=== PATIENT | male | born 1970 | race African-American/Black ===

== ENCOUNTER 2017-08-13 09:15 | Inpatient (IN) | payer OTHER ==
[2017-08-13] MEDS ORDERED: Furosemide 40 MG/4 ML VIAL ONE (09:51)
[2017-08-13] MEDS ORDERED: Nitroglycerin 2% Ointment 1 INCH/1 GM Packet ONE (09:51)
[2017-08-13 10:07] LABS: #Basophils 0.1 thou/uL (0.0-0.2); #Eosinphils 0.2 thou/uL (0.0-0.7); #Lymphocytes 1.8 thou/uL (1.20-3.40); #Monocytes 0.6 thou/uL (0.11-0.59); #Neutrophils 3.7 thou/uL (1.40-6.50); %Basophils 1.6 % (0.0-1.0); %Lymphocytes 28.6 % (21.0-51.0); %Monocytes 8.9 % (0.0-10.0); %Neutrophils 57.8 % (42.0-75.0); Hemoglobin 9.1 g/dL (14.0-18.0); Mean Corpuscular HGB CONC 32.7 g/dL (32.0-36.0); Mean Corpuscular Hemoglobin 30.9 pg (27.0-31.0); Mean Corpuscular Volume 94.5 fl (80.0-94.0); Mean Platelet Volume 9.5 fL (7.4-10.4); Platelet Count 193 thou/uL (130-400); RBC Distribution Width 14.5 % (11.5-14.5); Red Blood Cell (RBC) Count 2.94 mill/uL (4.70-6.10); White Blood Cell (WBC) Count 6.4 thou/uL (4.8-10.8)
[2017-08-13 10:08] LABS: INR-International Normal Ratio 1.4; PTT 28.9 SEC (22.9-36.1); Prothrombin Time 17.2 SEC (12.0-14.7)
[2017-08-13 10:24] LABS: ALT (SGPT) 38 U/L (8-55); AST (SGOT) 83 U/L (5-34); Albumin 1.6 g/dL (3.5-5.0); Alkaline Phosphatase 340 U/L (40-150); Anion Gap 11 mmol/L (10-20); BUN (Urea Nitrogen) 22 mg/dL (8.9-20.6); Bilirubin, Total 0.6 mg/dL (0.2-1.2); CK (CPK) 208 U/L (30-200); Calc. Creatinine Clearance 0 mL/min (70-130); Calcium 8.2 mg/dL (7.8-10.44); Carbon Dioxide 24 mmol/L (22-29); Chloride 105 mmol/L (98-107); Estimated GFR-MDRD 64; Globulin 4.8 g/dL (2.4-3.5); Glucose 156 mg/dL (70-105); Lipase 91 U/L (8-78); Potassium 4.3 mmol/L (3.5-5.1); Protein, Total 6.4 g/dL (6.0-8.3); Sodium 136 mmol/L (136-145)
--- NOTE | 2017-08-13 10:31 | RAD ---
PORTABLE CHEST ONE VIEW: 08/13/2017 9:52 a.m. HISTORY: Dyspnea. COMPARISON: 03/30/2017 FINDINGS: The heart size is borderline. New patchy infiltrates in the right lung. No pneumothoraces or large effusions are seen. POS: [facility]
[2017-08-13 10:35] LABS: CKMB 3.2 ng/mL (0-6.6); Troponin I 0.066 ng/mL (< 0.028)
[2017-08-13] MEDS ORDERED: HYDROcodone/Acetaminophen 5/325 mg Tablet ONE (11:04)
[2017-08-13] MEDS ORDERED: Piperacillin/Tazobactam 4.5 GM in Sodium Chloride 0.9% 100 ML IVPB ONE (11:30)
[2017-08-13] MEDS ORDERED: diphenhydrAMINE 25 MG CAP ONE (11:35)
--- NOTE | 2017-08-13 13:23 | HP ---
PRIMARY CARE PHYSICIAN: [facility] call admission. REASON FOR ADMISSION: Healthcare-associated pneumonia, acute on chronic systolic and diastolic conge stive heart failure exacerbation. HISTORY OF PRESENT ILLNESS: A 46-year-old -[place] male who has nonischemic cardiomyopathy w ith EF 20%-25%, who came to emergency room for evaluation of increasing shortness of breath as well a s lower extremity edema. The patient reports that earlier this week, he was admitted at [facility] in [place]. He was int ubated and stayed in hospital for 4 days where he was treated for congestive heart failure exacerbati on. He was just released from hospital yesterday. He reports that when he was released, at that ej e he was still feeling shortness of breath. He had still bilateral lower extremity pitting edema. H e was not feeling up to his baseline. Last night, his condition got more worse. He was having acute onset of shortness of breath. He woke up from sleep and at that time he was having difficulty breat xavi. He started having cough, productive of sputum with tinged amount of blood. He was not able to lie down flat, he was diaphoretic and that is why this morning he came to the emergency room for gopi luation. In the emergency room, he was hypertensive. He was saturating in 90s with oxygen. His routine blood test was unremarkable other than elevated troponin and elevated BNP. His chest x-ray also showed ri ght middle lobe infiltration. This patient has dry cough. He denies any pleuritic chest pain. He d enies any palpitation, dizziness or syncope. He denies any urinary tract infection symptoms. He den ies any recent upper respiratory infection. In the emergency room, influenza screen was negative. In the emergency room, patient has received vancomycin, Zosyn. As he was hypertensive, nitropatch wa s applied and he was given Lasix 80 mg IV push. He does have chronic pain and he is taking Ulman and that is why Ulman was also prescribed in the emergency room. We are admitting this patient for healthcare associated pneumonia and congestive heart failure exacer bation. REVIEW OF SYSTEMS: The following complete review of systems was negative, unless otherwise mentioned in the HPI or below: Constitutional: Weight loss or gain, ability to conduct usual activities. Skin: Rash, itching. Eyes: Double vision, pain. ENT/Mouth: Nose bleeding, neck stiffness, pain, tenderness. Cardiovascular: Palpitations, dyspnea on exertion, orthopnea. Respiratory: Shortness of breath, wheezing, cough, hemoptysis, fever or night sweats. Gastrointestinal: Poor appetite, abdominal pain, heartburn, nausea, vomiting, constipation, or diarr hea. Genitourinary: Urgency, frequency, dysuria, nocturia. Musculoskeletal: Pain, swelling. Neurologic/Psychiatric: Anxiety, depression. Allergy/Immunologic: Skin rash, bleeding tendency. Please see my HPI for pertinent positives and negatives. All other review of system reviewed and neg ative except as mentioned in the HPI. PAST MEDICAL HISTORY: Nonischemic cardiomyopathy with EF 20%-25%, noncompliance with medication, his tory of mesenteric ischemia, history of portal vein thrombosis, ascites, portal hypertension, chronic hepatitis C, end-stage liver disease with cirrhosis of liver, history of esophageal varices, diabete s type 2, polysubstance abuse, protein calorie malnutrition, hypertension. PAST PSYCHIATRIC HISTORY: Anxiety, depression, and bipolar disorder. PAST SURGICAL HISTORY: Left inguinal hernia repair, cholecystectomy. I&D were performed for perirec real abscess, left arm abscess, abdominal paracentesis. ALLERGIES: NSAID, TORADOL, and FENTANYL. SOCIAL HISTORY: Patient lives at home. He has history of polysubstance abuse including marijuana, c ocaine as well as he also has a history of alcohol and smoking. FAMILY HISTORY: No strong family history of coronary artery disease, stroke or cancer. EMERGENCY ROOM COURSE: So far, patient has received vancomycin, Zosyn, Levaquin, Ulman, Lasix 80 mg, and nitropatch. CURRENT HOME MEDICATIONS: Lasix 80 mg p.o. b.i.d., Aldactone 50 mg p.o. daily, lactulose 15 mL p.o. b.i.d., risperidone 0.2 mg p.o. daily, clonidine 0.2 mg twice daily, aspirin 325 mg p.o. daily, folic acid 1 mg p.o. daily, Corgard 40 mg p.o. daily, hydralazine 50 mg p.o. b.i.d., Lantus insulin 40 uni ts subcu at bedtime, multivitamin 1 tablet p.o. daily, Ulman 10 one tablet q.6 hourly p.r.n., Xanax 2 mg p.o. b.i.d. p.r.n., Klonopin 2 mg p.o. b.i.d. p.r.n., potassium chloride 20 mEq p.o. daily, amlod ipine 5 mg p.o. daily, vitamin B12 1000 mcg p.o. daily, omeprazole 20 mg p.o. daily. Of note, above- mentioned medication is not able to verify because patient did not have any medication with him. PHYSICAL EXAMINATION: VITAL SIGNS: On arrival, blood pressure 157/100, pulse 91, respiratory rate 19, temperature 97.8, sa turation 93% on room air, weight 83.9 kilograms. GENERAL: Patient is currently alert, awake, chronically ill, no obvious acute distress. HEAD: Normocephalic, atraumatic. EYES: Pupils round, reactive to light. Extraocular muscle intact. No icterus. No nystagmus. ENT: Oropharynx within normal limits. Moist mucous membranes. No oral lesions. No pharyngeal eryt imani, no exudate. NECK: Elevated JVD, no thyromegaly, no carotid bruit, no lymph nodes, no meningeal signs of irritati on. LUNGS: Bilateral rhonchi and wheezing heard. Rales present at bases, more on the right side. CARDIAC: S1 and S2 regular. No murmur, no gallop, no rub. ABDOMEN: Ascites present. Diffuse soreness noted, but no peritoneal sign, no guarding, no rigidity, no rebound, no organomegaly, no mass, no suprapubic tenderness. GENITALIA: Scrotal wall edema noted. BACK: Examination, no CVA tenderness. EXTREMITIES: Upper extremity passive movements of all joints are normal. Lower extremities: Bilate ral +2 pitting edema noted up to thigh level. NEUROLOGIC: Nonfocal examination. No asterixis. He moves all 4 limbs. Motor and sensation within normal limits. No focal neurological deficit noted. SKIN: No skin rash. HEMATOLOGICAL SYSTEM: No lymphadenopathy. PSYCHIATRIC: Normal affect. IMAGING DATA AND SIGNIFICANT LABORATORY DATA: 1. EKG showing normal sinus rhythm, ST-T changes in lateral leads. 2. Chest x-ray based on my review, patchy infiltration in right middle lobe, cardiomegaly, congestio n. 3. CBC: WBC 6.4, hemoglobin 9.1, platelets 193. INR 1.4. 4. BMP: Sodium 136, potassium 4.3, chloride 105, carbon dioxide 24, anion gap 11, BUN 22, creatinin e 1.42, glucose 156, calcium 8.2, lactic acid 1.5. 5. LFT: AST 83, ALT 38, alkaline phosphatase 340, albumin 1.6, lipase 91. CK 208, CK-MB 3.2, tropo nguyen I 0.066. BNP 3576. ASSESSMENT AND PLAN/IMPRESSION: 1. Acute on chronic systolic congestive heart failure exacerbation with ejection fraction 20%-25%. This patient has elevated BNP. He has bilateral lower extremity pitting edema, elevated JVD, dyspnea , all consistent with congestive heart failure exacerbation. This patient will require fluid restric tion 1200 mL per day. We will continue with Lasix 40 mg IV b.i.d. We will also continue with Zaroxo faith 5 mg p.o. daily. We will monitor daily weight, input and output chart. We will replace electrol ytes as needed basis. We will monitor renal function and electrolytes while in hospital. We will al so continue Coreg 12.5 mg p.o. twice daily and lisinopril 5 mg p.o. daily. We will also add Aldacton e 25 mg p.o. daily. 2. Healthcare-associated pneumonia. Patient was recently hospitalized at [facility] in [place]. He has right middle lobe infiltration though he does not have any fever, but the patient will be tr eated with clinically for pneumonia. We will continue with vancomycin and Levaquin while in hospital . We will provide Mucinex 600 mg twice daily and DuoNeb q.6 hourly and as needed basis. 3. Chronic kidney disease stage 2. We will monitor renal function and avoid nephrotoxic agent. 4. Anemia, normocytic, normochromic. We will continue folic acid, vitamin B12, and ferrous sulfate and Theragran therapy while in hospital. 5. Abnormal liver function tests, related with his chronic hepatitis C and end-stage liver disease. 6. Ascites likely related with cardiac cirrhosis as well as hepatitis C related cirrhosis and portal vein thrombosis and his history of portal hypertension. We will monitor his abdominal girth and we will try to reduce abdominal distention with diuretic therapy. 7. Elevated troponin. We will do serial cardiac enzymes to rule out acute coronary syndrome. 8. Hypertension. We will continue Coreg, lisinopril, Aldactone and Lasix as above and we will monit or vitals and change medication as needed basis. 9. History of end-stage liver disease. We will continue lactulose 15 grams p.o. b.i.d. while in [facility] 10. Diabetes type 2. We will continue insulin as per sliding scale protocol. Diabetic diet will be given. 11. Gastroesophageal reflux disease. We will continue Protonix 40 mg p.o. daily. 12. Hypoalbuminemia, likely due to underlying end-stage liver disease and that is also contributing to his edema in lower extremity. 13. Polysubstance abuse. We will check urine drug screen to rule out any ongoing drug abuse. 14. Deep venous thrombosis prophylaxis, Lovenox 40 mg subcutaneously daily. 15. Gastrointestinal prophylaxis, Protonix 40 mg p.o. daily. CODE STATUS: The patient is FULL CODE. Patient does not have any surrogate decision maker. Disposition and plan based on clinical course. We are expecting patient's stay in the hospital more than 2 midnights. Plan of care discussed with the patient in detail.
[2017-08-13 13:32] LABS: Troponin I 0.077 ng/mL (< 0.028)
[2017-08-13] MEDS ORDERED: Ondansetron ODT 4 MG TAB SL PRN (14:24)
[2017-08-13] MEDS ORDERED: Ondansetron HCl/PF 4 MG/2 ML Vial IVP PRN ×2 (14:24→14:32)
[2017-08-13] MEDS ORDERED: Dextrose 5% in Water 1,000 ML IV PRN (14:32)
[2017-08-13] MEDS ORDERED: Milk Of Magnesia 30 ML UDCUP PO PRN (14:32)
[2017-08-13] MEDS ORDERED: Chloraseptic Spray 180 ml Bottle PO PRN (14:32)
[2017-08-13] MEDS ORDERED: Mag-Al 1200 mg/1200 mg/30 ML UDCUP PO PRN (14:32)
[2017-08-13] MEDS ORDERED: Sodium Chloride 0.65% Nasal 44 ML BOT EA NARE PRN (14:32)
[2017-08-13] MEDS ORDERED: Loratadine 10 MG TAB PO PRN (14:32)
[2017-08-13] MEDS ORDERED: Eucerin (Mineral Oil/Petrolatum,White) 30 gm Jar TOP PRN (14:32)
[2017-08-13] MEDS ORDERED: Dextrose 50% Abboject 50 ML SYRINGE SLOW IVP PRN (14:32)
[2017-08-13] MEDS ORDERED: Benzonatate 100 MG CAP PO PRN (14:32)
[2017-08-13] MEDS ORDERED: Diabetic Tussin 200 MG/10 ML UDCUP PO PRN (14:32)
[2017-08-13] MEDS ORDERED: Loperamide HCl 2 MG CAP PO PRN (14:32)
[2017-08-13] MEDS ORDERED: Artificial Tears 18 DROP/0.9 ML EA EYE PRN (14:32)
[2017-08-13] MEDS ORDERED: Ondansetron ODT 4 MG TAB PO PRN (14:32)
[2017-08-13] MEDS ORDERED: Nitroglycerin 0.4 MG TAB (25 Tab Bottle) SL PRN (14:32)
[2017-08-13] MEDS ORDERED: Acetaminophen 325 MG TAB PO PRN (14:32)
[2017-08-13] MEDS ORDERED: VANCOMYCIN IVPB PRN (14:32)
[2017-08-13] MEDS ORDERED: Senokot 8.6 MG TAB PO PRN (14:32)
[2017-08-13] MEDS ORDERED: hydrALAZINE 20 MG/ML VIAL SLOW IVP PRN (14:32)
[2017-08-13] MEDS ORDERED: Furosemide 40 MG/4 ML VIAL SLOW IVP SCH (15:30)
[2017-08-13] MEDS: HYDROcodone/Acetaminophen 10/325 mg Tablet PO PRN ×2 (15:30→19:26)
[2017-08-13 15:31] LABS: Bilirubin Negative (Negative); Blood, Urine Small (Negative); Clarity CLEAR (Clear); Glucose, Urine (Dipstick) Negative (Negative); Leukocyte Negative (Negative); Nitrite Negative (Negative); Protein, Urine (Dipstick) 30 mg/dL (Neg-Trace); Specific Gravity, Urine 1.012 (1.002-1.036); Urobilinogen 0.2 mg/dL (0.2-1.0)
[2017-08-13 15:35] LABS: Bacteria/HPF None Seen HPF (None Seen); Hyaline Casts/LPF 0-3 HYALINE CAST LPF (0-3 Hyaline); Squamous Epithelial None Seen HPF (0-3); WBC/HPF 0-3 HPF (0-3)
[2017-08-13 16:26] LABS: Troponin I 0.066 ng/mL (< 0.028)
[2017-08-13] MEDS: HumaLOG 300 UNITS/3 ML VIAL SC PRN (17:30)
[2017-08-13 20:51] LABS: Amphetamine Not Detected (NotDetected); Barbiturates Screen Not Detected (NotDetected); Benzodiazepine Screen Not Detected (NotDetected); Cocaine Metabolite Screen Detected (NotDetected); Medtox Control Line Valid? VALID (VALID); Medtox Reader # READER 4; Methadone Not Detected (NotDetected); Methamphetamine Not Detected (NotDetected); Opiate Screen Not Detected (NotDetected); Oxycodone Screen Not Detected (NotDetected); Phencyclidine (PCP) Not Detected (NotDetected); THC/Cannabinoid Screen Not Detected (NotDetected); Tricyclic Screen Not Detected (NotDetected)
[2017-08-13] MEDS: Carvedilol 6.25 MG TAB PO SCH (22:06)
[2017-08-14] MEDS: Zolpidem Tartrate 5 MG TAB PO PRN (01:45)
[2017-08-14] MEDS: HYDROcodone/Acetaminophen 10/325 mg Tablet PO PRN ×5 (04:36→20:43)
[2017-08-14 05:20] VITALS: BMI 30.7
[2017-08-14 05:27] LABS: #Basophils 0.1 thou/uL (0.0-0.2); #Eosinphils 0.2 thou/uL (0.0-0.7); #Lymphocytes 1.8 thou/uL (1.20-3.40); #Monocytes 0.6 thou/uL (0.11-0.59); #Neutrophils 3.1 thou/uL (1.40-6.50); %Basophils 1.8 % (0.0-1.0); %Eosinophils 2.7 % (0.0-10.0); %Lymphocytes 31.5 % (21.0-51.0); %Monocytes 11.1 % (0.0-10.0); %Neutrophils 52.9 % (42.0-75.0); Hemoglobin 8.7 g/dL (14.0-18.0); Mean Corpuscular HGB CONC 33.3 g/dL (32.0-36.0); Mean Corpuscular Hemoglobin 31.7 pg (27.0-31.0); Mean Corpuscular Volume 95.4 fl (80.0-94.0); Mean Platelet Volume 8.9 fL (7.4-10.4); Platelet Count 145 thou/uL (130-400); RBC Distribution Width 14.6 % (11.5-14.5); Red Blood Cell (RBC) Count 2.74 mill/uL (4.70-6.10); White Blood Cell (WBC) Count 5.8 thou/uL (4.8-10.8)
[2017-08-14 05:43] LABS: ALT (SGPT) 37 U/L (8-55); AST (SGOT) 77 U/L (5-34); Albumin 1.5 g/dL (3.5-5.0); Alkaline Phosphatase 338 U/L (40-150); Anion Gap 9 mmol/L (10-20); BUN (Urea Nitrogen) 25 mg/dL (8.9-20.6); Bilirubin, Total 0.5 mg/dL (0.2-1.2); Calc. Creatinine Clearance 64 mL/min (70-130); Carbon Dioxide 28 mmol/L (22-29); Chloride 103 mmol/L (98-107); Estimated GFR-MDRD 51; Globulin 4.5 g/dL (2.4-3.5); Glucose 217 mg/dL (70-105); Sodium 136 mmol/L (136-145); Uric Acid 9.2 mg/dL (3.5-7.2)
[2017-08-14] MEDS: Furosemide 40 MG/4 ML VIAL SLOW IVP SCH ×2 (06:29→16:33)
[2017-08-14] MEDS ORDERED: Albumin 25% 25 GM/100 ML BOT IVPB SCH (07:00)
[2017-08-14] MEDS: Potassium Chloride 20 MEQ TAB PO SCH (08:33)
[2017-08-14] MEDS: Saccharomyces boulardii 250 MG CAP PO SCH (08:33)
[2017-08-14] MEDS: Magnesium Oxide 400 MG TAB PO SCH (08:33)
[2017-08-14] MEDS: Cyanocobalamin (Vitamin B-12) 1,000 MCG TAB PO SCH (08:34)
[2017-08-14] MEDS: Multivitamin W/ Minerals 1 TAB PO SCH (08:34)
[2017-08-14] MEDS: Enoxaparin Sodium 40 MG/0.4 ML SYRINGE SC SCH (08:34)
[2017-08-14] MEDS: Metolazone 5 MG TAB PO SCH (08:34)
[2017-08-14] MEDS: Ferrous Sulfate 325 MG TAB PO SCH (08:34)
[2017-08-14] MEDS: Lisinopril 5 MG TAB PO SCH (08:34)
[2017-08-14] MEDS: Folic Acid 1 MG TAB PO SCH (08:34)
[2017-08-14] MEDS: Spironolactone 25 MG TAB PO SCH (08:34)
[2017-08-14] MEDS: HumaLOG 300 UNITS/3 ML VIAL SC PRN ×3 (08:35→18:09)
[2017-08-14] MEDS: Carvedilol 6.25 MG TAB PO SCH ×2 (08:35→20:43)
--- NOTE | 2017-08-14 09:57 | PDOC.PN ---
- Subjective Encounter Start Date: 08/14/17 Encounter Start Time: 07:30 -: old records requested/rev Patient seen and examined. No new complaints. No overnight events has cough, edema is improving, no fever - Objective Resuscitation Status: Resuscitation Status FULL:Full Resuscitation MAR Reviewed: Yes Vital Signs & Weight: Vital Signs (12 hours) Temp Pulse Resp BP BP Pulse Ox 08/14/17 08:35 138/56 L 08/14/17 08:34 89 138/56 L 08/14/17 07:28 89 15 95 08/14/17 07:26 97.2 F L 89 15 138/56 L 95 08/14/17 04:00 98.3 F 88 18 159/96 H 92 L 08/13/17 23:58 93 L 08/13/17 22:06 134/83 Weight Weight 190 lb 8 oz I&O: 08/13/17 08/14/17 08/15/17 06:59 06:59 06:59 Intake Total 1074 Output Total 980 Balance 94 Result Diagrams: 08/14/17 04:30 08/14/17 04:30 Additional Labs: Accuchecks 08/14/17 08/13/17 08/13/17 06:16 20:34 17:11 POC Glucose 230 H 168 H 327 H EKG Reviewed by me: Yes (nsr) Phys Exam - Physical Examination Constitutional: NAD HEENT: PERRLA, moist MMs, sclera anicteric Neck: supple, full ROM high jvd Respiratory: no wheezing, no rhonchi basal rales Cardiovascular: RRR, no rub SM+ Gastrointestinal: soft, positive bowel sounds ascites+ Musculoskeletal: pulses present, edema present Neurological: non-focal, normal sensation, moves all 4 limbs Psychiatric: normal affect, A&O x 3 Skin: no rash, normal turgor Dx/Plan (1) Acute on chronic systolic heart failure Code(s): I50.23 - ACUTE ON CHRONIC SYSTOLIC (CONGESTIVE) HEART FAILURE Status : Acute (2) Healthcare associated bacterial pneumonia Code(s): J15.9 - UNSPECIFIED BACTERIAL PNEUMONIA Status: Acute (3) Hypoalbuminemia Code(s): E88.09 - OTH DISORDERS OF PLASMA-PROTEIN METABOLISM, NEC Status: Acute (4) Abdominal pain Code(s): R10.9 - UNSPECIFIED ABDOMINAL PAIN Status: Chronic Qualifiers: Abdominal location: generalized Qualified Code(s): R10.84 - Generalized abdominal pain (5) Anxiety and depression Code(s): F41.9 - ANXIETY DISORDER, UNSPECIFIED; F32.9 - MAJOR DEPRESSIVE DISORDER, SINGLE EPISODE, UNSPECIFIED Status: Chronic (6) Bipolar 1 disorder Code(s): F31.9 - BIPOLAR DISORDER, UNSPECIFIED Status: Chronic (7) Cirrhosis of liver with ascites Code(s): K74.60 - UNSPECIFIED CIRRHOSIS OF LIVER Status: Chronic (8) Cocaine abuse Code(s): F14.10 - COCAINE ABUSE, UNCOMPLICATED Status: Chronic (9) DM type 2 (diabetes mellitus, type 2) Status: Chronic (10) HTN (hypertension) Code(s): I10 - ESSENTIAL (PRIMARY) HYPERTENSION Status: Chronic (11) Hepatitis C Code(s): B19.20 - UNSPECIFIED VIRAL HEPATITIS C WITHOUT HEPATIC COMA Status: Chronic Qualifiers: (12) Moderate protein-calorie malnutrition Code(s): E44.0 - MODERATE PROTEIN-CALORIE MALNUTRITION Status: Chronic (13) Non-ischemic cardiomyopathy Code(s): I42.8 - OTHER CARDIOMYOPATHIES Status: Chronic (14) Noncompliance Code(s): Z91.19 - PATIENT'S NONCOMPLIANCE W OTH MEDICAL TREATMENT AND REGIMEN Status: Chronic (15) Normocytic anemia Code(s): D64.9 - ANEMIA, UNSPECIFIED Status: Chronic (16) Portal vein thrombosis Code(s): I81 - PORTAL VEIN THROMBOSIS Status: Chronic Comment: ESLD (17) Transaminitis Code(s): R74.0 - NONSPEC ELEV OF LEVELS OF TRANSAMNS & LACTIC ACID DEHYDRGNSE Status: Chronic Comment: ESLD (18) Varices, esophageal Code(s): I85.00 - ESOPHAGEAL VARICES WITHOUT BLEEDING Status: Chronic Comment: ESLD - Plan cont current plan of care, plan discussed w/ family, respiratory therapy * continue vancomycin, levaquin * give albumin * continue lasix and zaroxolyn * monitor renal function and electrolytes * add nutritional supplement * medication reviewed as below * symptomatic treatment * counselled to avoid posysubstance abuse. Review of Systems - Review of Systems Constitutional: negative: fever, chills, sweats, weakness, malaise, other ENT: negative: Ear Pain, Ear Discharge, Nose Pain, Nose Discharge, Nose Congestion, Mouth Pain, Mouth Swelling, Throat Pain, Throat Swelling, Other Respiratory: Cough, Shortness of Breath, SOB with Excertion Cardiovascular: orthopnea, edema. negative: chest pain, palpitations, paroxysmal nocturnal dyspnea, light headedness, other Gastrointestinal: negative: Nausea, Vomiting, Abdominal Pain, Diarrhea, Constipation, Melena, Hematochezia, Other Genitourinary: negative: Dysuria, Frequency, Incontinence, Hematuria, Retention , Other Musculoskeletal: negative: Neck Pain, Shoulder Pain, Arm Pain, Back Pain, Hand Pain, Leg Pain, Foot Pain, Other Skin: negative: Rash, Lesions, Chad, Bruising, Other Neurological: negative: Weakness, Numbness, Incoordination, Change in Speech, Confusion, Seizures, Other - Medications/Allergies Allergies/Adverse Reactions: Allergies Allergy/AdvReac Type Severity Reaction Status Date / Time ibuprofen [From Motrin] Allergy Intermediate Short of Verified 11/27/15 17:55 Breath fentanyl Allergy Verified 11/27/15 17:55 ketorolac tromethamine Allergy Short of Verified 11/27/15 17:55 [From Toradol] Breath NSAIDS (Non-Steroidal Allergy Short of Verified 11/27/15 17:55 Anti-Inflamma Breath tramadol HCl [From Ultram] Allergy Short of Verified 11/27/15 17:55 Breath Medications: Current Medications Acetaminophen (Tylenol) 650 mg PO Q4H PRN PRN Reason: Headache/Fever or Pain Hydrocodone Bitart/Acetaminophen (Avalon 10/325) 1 tab PO Q4H PRN PRN Reason: Moderate Pain (4-6) Last Admin: 08/14/17 08:32 Dose: 1 tab Al Hydroxide/Mg Hydroxide (Maalox) 30 ml PO Q6H PRN PRN Reason: Heartburn or Indigestion Albuterol/Ipratropium (Duoneb) 3 ml NEB [id number] [facility] Last Admin: 08/14/17 07:28 Dose: 3 ml Artificial Tears (Tears Naturale) 0 drop EA EYE PRN PRN PRN Reason: Dry Eyes Aspirin (Aspirin Chewable) 81 mg PO DAILY [facility] Last Admin: 08/14/17 08:33 Dose: 81 mg Benzonatate (Tessalon) 100 mg PO Q4H PRN PRN Reason: Cough Carvedilol (Coreg) 12.5 mg PO BID [facility] Last Admin: 12/31/17 08:35 Dose: Not Given Cyanocobalamin (Vitamin B-12) 1,000 mcg PO DAILY [facility] Last Admin: 08/14/17 08:34 Dose: 1,000 mcg Dextrose/Water (Dextrose 50%) 25 gm SLOW IVP PRN PRN PRN Reason: Hypoglycemia Enoxaparin Sodium (Lovenox) 40 mg SC 0900 [facility] Last Admin: 08/14/17 08:34 Dose: 40 mg Ferrous Sulfate (Feosol) 325 mg PO QAM[facility] Last Admin: 08/14/17 08:34 Dose: 325 mg Folic Acid (Folvite) 1 mg PO DAILY [facility] Last Admin: 08/14/17 08:34 Dose: 1 mg Furosemide (Lasix) 40 mg SLOW IVP 0600,1400 [facility] Last Admin: 08/14/17 06:29 Dose: 40 mg Glucagon (Glucagon) 1 mg IM PRN PRN PRN Reason: Hypoglycemia Guaifenesin (Robitussin Sf) 200 mg PO Q4H PRN PRN Reason: Cough Hydralazine HCl (Apresoline) 10 mg SLOW IVP Q4H PRN PRN Reason: Systolic BP > 180 Dextrose/Water (D5w) 1,000 mls @ 0 mls/hr IV .Q0M PRN; As Directed PRN Reason: Hypoglycemia Levofloxacin 500 mg/ Device 100 mls @ 100 mls/hr IVPB 1300 [facility] Vancomycin HCl 1.25 gm/ Sodium (Chloride) 250 mls @ 166.667 mls/hr IVPB 1100 [facility] Insulin Human Lispro (Humalog) 0 units SC .MODERATE SLIDING SC PRN PRN Reason: Moderate Correctional Scale Last Admin: 08/14/17 08:35 Dose: 4 unit Insulin Human Lispro (Humalog) 0 units SC .BEDTIME SLIDING SC PRN PRN Reason: Bedtime Correctional Scale Iron/Minerals/Multivitamins (Theragran M) 1 tab PO DAILY [facility] Last Admin: 08/14/17 08:34 Dose: 1 tab Lactulose (Lactulose) 20 gm PO DAILY [facility] Last Admin: 08/14/17 08:35 Dose: Not Given Lisinopril (Zestril) 5 mg PO DAILY [facility] Last Admin: 08/14/17 08:34 Dose: 5 mg Loperamide HCl (Imodium) 2 mg PO PRN PRN PRN Reason: Diarrhea/Loose Stools Loratadine (Claritin) 10 mg PO DAILYPRN PRN PRN Reason: Sinus Symptoms Magnesium Hydroxide (Milk Of Magnesium) 30 ml PO DAILYPRN PRN PRN Reason: Constipation Magnesium Oxide (Magnesium Oxide) 400 mg PO DAILY [facility] Last Admin: 08/14/17 08:33 Dose: 400 mg Metolazone (Zaroxolyn) 5 mg PO 0830 [facility] Last Admin: 08/14/17 08:34 Dose: 5 mg Mineral Oil/White Petrolatum (Eucerin Cream) 0 gm TOP BIDPRN PRN PRN Reason: Dry Skin Miscellaneous Medication (Pharmacy To Dose) 1 each IVPB PRN PRN PRN Reason: Pharmacy to dose Morphine Sulfate (Morphine) 2 mg SLOW IVP Q4H PRN PRN Reason: Severe Pain (7-10) Nitroglycerin (Nitrostat) 0.4 mg SL Q5MIN PRN PRN Reason: Chest Pain Ondansetron HCl (Zofran Odt) 4 mg PO Q6H PRN PRN Reason: Nausea/Vomiting Ondansetron HCl (Zofran) 4 mg IVP Q6H PRN PRN Reason: Nausea/Vomiting Pantoprazole Sodium (Protonix) 40 mg PO DAILY [facility] Last Admin: 08/14/17 08:33 Dose: 40 mg Phenol (Chloraseptic [place] 180 Ml Bot) 0 ml PO PRN PRN PRN Reason: Sore Throat Potassium Chloride (K-Dur) 20 meq PO QA-[facility] Last Admin: 08/14/17 08:33 Dose: 20 meq Saccharomyces Boulardii (Florastor) 250 mg PO DAILY [facility] Last Admin: 08/14/17 08:33 Dose: 250 mg Senna (Senokot) 2 tab PO HSPRN PRN PRN Reason: Constipation Sodium Chloride ([place] Nasal [place] 0.65%) 0 ml EA NARE QIDPRN PRN PRN Reason: Nasal Congestion Spironolactone (Aldactone) 25 mg PO DAILY [facility] Last Admin: 08/14/17 08:34 Dose: 25 mg Zolpidem Tartrate (Ambien) 5 mg PO HSPRN PRN PRN Reason: Insomnia Last Admin: 08/14/17 01:45 Dose: 5 mg
[2017-08-14] MEDS ORDERED: Vancomycin HCl 1.25 GM in Sodium Chloride 0.9% 250 ML 250 ML IVPB SCH (11:00)
[2017-08-15] MEDS: HYDROcodone/Acetaminophen 10/325 mg Tablet PO PRN ×6 (00:44→22:27)
[2017-08-15] MEDS: Furosemide 40 MG/4 ML VIAL SLOW IVP SCH ×2 (05:04→13:15)
[2017-08-15] MEDS: HumaLOG 300 UNITS/3 ML VIAL SC PRN ×3 (06:25→21:54)
[2017-08-15 08:37] LABS: #Basophils 0.1 thou/uL (0.0-0.2); #Eosinphils 0.2 thou/uL (0.0-0.7); #Lymphocytes 2.1 thou/uL (1.20-3.40); #Monocytes 0.8 thou/uL (0.11-0.59); #Neutrophils 3.6 thou/uL (1.40-6.50); %Basophils 1.9 % (0.0-1.0); %Eosinophils 3.1 % (0.0-10.0); %Lymphocytes 30.5 % (21.0-51.0); %Monocytes 11.2 % (0.0-10.0); %Neutrophils 53.3 % (42.0-75.0); Hemoglobin 9.1 g/dL (14.0-18.0); Mean Corpuscular HGB CONC 33.2 g/dL (32.0-36.0); Mean Corpuscular Hemoglobin 31.6 pg (27.0-31.0); Mean Corpuscular Volume 95.2 fl (80.0-94.0); Mean Platelet Volume 8.6 fL (7.4-10.4); Platelet Count 148 thou/uL (130-400); RBC Distribution Width 14.5 % (11.5-14.5); Red Blood Cell (RBC) Count 2.89 mill/uL (4.70-6.10); White Blood Cell (WBC) Count 6.8 thou/uL (4.8-10.8)
[2017-08-15] MEDS: Potassium Chloride 20 MEQ TAB PO SCH (08:46)
[2017-08-15] MEDS: Allopurinol 100 MG TAB PO SCH (08:46)
[2017-08-15] MEDS: Ferrous Sulfate 325 MG TAB PO SCH (08:46)
[2017-08-15 08:47] LABS: Albumin 1.9 g/dL (3.5-5.0); Anion Gap 9 mmol/L (10-20); BUN (Urea Nitrogen) 27 mg/dL (8.9-20.6); BUN/Creatinine Ratio 16.17; Calc. Creatinine Clearance 66 mL/min (70-130); Carbon Dioxide 28 mmol/L (22-29); Chloride 105 mmol/L (98-107); Estimated GFR-MDRD 53; Glucose 144 mg/dL (70-105); Phosphorus 3.2 mg/dL (2.3-4.7); Potassium 3.7 mmol/L (3.5-5.1); Sodium 138 mmol/L (136-145)
[2017-08-15] MEDS: Spironolactone 25 MG TAB PO SCH (08:47)
[2017-08-15] MEDS: Lisinopril 5 MG TAB PO SCH (08:47)
[2017-08-15] MEDS: Saccharomyces boulardii 250 MG CAP PO SCH (08:48)
[2017-08-15] MEDS: Cyanocobalamin (Vitamin B-12) 1,000 MCG TAB PO SCH (08:49)
[2017-08-15] MEDS: Metolazone 5 MG TAB PO SCH (08:49)
[2017-08-15] MEDS: Magnesium Oxide 400 MG TAB PO SCH (08:49)
[2017-08-15] MEDS: Multivitamin W/ Minerals 1 TAB PO SCH (08:49)
[2017-08-15] MEDS: Carvedilol 6.25 MG TAB PO SCH ×2 (08:49→19:59)
[2017-08-15] MEDS: Folic Acid 1 MG TAB PO SCH (08:50)
[2017-08-15] MEDS: Enoxaparin Sodium 40 MG/0.4 ML SYRINGE SC SCH (08:50)
--- NOTE | 2017-08-15 10:03 | PDOC.PN ---
- Subjective Encounter Start Date: 08/15/17 Encounter Start Time: 08:20 Patient seen and examined. No new complaints. No overnight events - Objective Resuscitation Status: Resuscitation Status FULL:Full Resuscitation MAR Reviewed: Yes Vital Signs & Weight: Vital Signs (12 hours) Temp Pulse Resp BP Pulse Ox 08/15/17 08:47 93 08/15/17 08:42 98.8 F 93 18 139/92 H 94 L 08/15/17 05:00 97.6 F 91 20 134/79 94 L 08/15/17 04:00 97.6 F 91 18 134/79 94 L 08/15/17 00:30 97.8 F 97 20 147/88 H 97 Weight Weight 190 lb 8 oz I&O: 08/14/17 08/15/17 08/16/17 06:59 06:59 06:59 Intake Total 1074 1615 Output Total 980 2625 Balance 94 -1010 Result Diagrams: 08/15/17 07:43 08/15/17 07:43 Additional Labs: Accuchecks 08/15/17 08/14/17 08/14/17 05:18 21:22 16:29 POC Glucose 176 H 139 H 256 H 08/14/17 11:27 POC Glucose 286 H EKG Reviewed by me: Yes (nsr) Phys Exam - Physical Examination Constitutional: NAD HEENT: PERRLA, moist MMs, sclera anicteric Neck: supple JVD+ Respiratory: no wheezing, no rhonchi few basal rales Cardiovascular: RRR, no significant murmur, no rub Gastrointestinal: soft, positive bowel sounds ascites+ Musculoskeletal: pulses present, edema present Neurological: non-focal, normal sensation Psychiatric: normal affect, A&O x 3 Skin: no rash, normal turgor Dx/Plan (1) Acute on chronic systolic heart failure Code(s): I50.23 - ACUTE ON CHRONIC SYSTOLIC (CONGESTIVE) HEART FAILURE Status : Acute (2) Healthcare associated bacterial pneumonia Code(s): J15.9 - UNSPECIFIED BACTERIAL PNEUMONIA Status: Acute (3) Hypoalbuminemia Code(s): E88.09 - OTH DISORDERS OF PLASMA-PROTEIN METABOLISM, NEC Status: Acute (4) Abdominal pain Code(s): R10.9 - UNSPECIFIED ABDOMINAL PAIN Status: Chronic Qualifiers: Abdominal location: generalized Qualified Code(s): R10.84 - Generalized abdominal pain (5) Anxiety and depression Code(s): F41.9 - ANXIETY DISORDER, UNSPECIFIED; F32.9 - MAJOR DEPRESSIVE DISORDER, SINGLE EPISODE, UNSPECIFIED Status: Chronic (6) Bipolar 1 disorder Code(s): F31.9 - BIPOLAR DISORDER, UNSPECIFIED Status: Chronic (7) Cirrhosis of liver with ascites Code(s): K74.60 - UNSPECIFIED CIRRHOSIS OF LIVER Status: Chronic (8) Cocaine abuse Code(s): F14.10 - COCAINE ABUSE, UNCOMPLICATED Status: Chronic (9) DM type 2 (diabetes mellitus, type 2) Status: Chronic (10) HTN (hypertension) Code(s): I10 - ESSENTIAL (PRIMARY) HYPERTENSION Status: Chronic (11) Hepatitis C Code(s): B19.20 - UNSPECIFIED VIRAL HEPATITIS C WITHOUT HEPATIC COMA Status: Chronic Qualifiers: (12) Moderate protein-calorie malnutrition Code(s): E44.0 - MODERATE PROTEIN-CALORIE MALNUTRITION Status: Chronic (13) Non-ischemic cardiomyopathy Code(s): I42.8 - OTHER CARDIOMYOPATHIES Status: Chronic (14) Noncompliance Code(s): Z91.19 - PATIENT'S NONCOMPLIANCE W OTH MEDICAL TREATMENT AND REGIMEN Status: Chronic (15) Normocytic anemia Code(s): D64.9 - ANEMIA, UNSPECIFIED Status: Chronic (16) Portal vein thrombosis Code(s): I81 - PORTAL VEIN THROMBOSIS Status: Chronic Comment: ESLD (17) Transaminitis Code(s): R74.0 - NONSPEC ELEV OF LEVELS OF TRANSAMNS & LACTIC ACID DEHYDRGNSE Status: Chronic Comment: ESLD (18) Varices, esophageal Code(s): I85.00 - ESOPHAGEAL VARICES WITHOUT BLEEDING Status: Chronic Comment: ESLD - Plan cont current plan of care, plan discussed w/ family, continue antibiotics, respiratory therapy * change to po levaquin * give 25% albumin one dose * continue diuresis * pt is improving but needs more diuresis * medication reviewed as below * symptomatic treatment. Review of Systems - Review of Systems Constitutional: negative: fever, chills, sweats, weakness, malaise, other ENT: negative: Ear Pain, Ear Discharge, Nose Pain, Nose Discharge, Nose Congestion, Mouth Pain, Mouth Swelling, Throat Pain, Throat Swelling, Other Respiratory: SOB with Excertion. negative: Cough, Dry, Shortness of Breath, Hemoptysis, Pleuritic Pain, Sputum, Wheezing Cardiovascular: orthopnea, edema. negative: chest pain, palpitations, paroxysmal nocturnal dyspnea, light headedness, other Gastrointestinal: negative: Nausea, Vomiting, Abdominal Pain, Diarrhea, Constipation, Melena, Hematochezia, Other Genitourinary: negative: Dysuria, Frequency, Incontinence, Hematuria, Retention , Other Musculoskeletal: negative: Neck Pain, Shoulder Pain, Arm Pain, Back Pain, Hand Pain, Leg Pain, Foot Pain, Other Skin: negative: Rash, Lesions, Chad, Bruising, Other - Medications/Allergies Allergies/Adverse Reactions: Allergies Allergy/AdvReac Type Severity Reaction Status Date / Time ibuprofen [From Motrin] Allergy Intermediate Short of Verified 11/27/15 17:55 Breath fentanyl Allergy Verified 11/27/15 17:55 ketorolac tromethamine Allergy Short of Verified 11/27/15 17:55 [From Toradol] Breath NSAIDS (Non-Steroidal Allergy Short of Verified 11/27/15 17:55 Anti-Inflamma Breath tramadol HCl [From Ultram] Allergy Short of Verified 11/27/15 17:55 Breath Medications: Current Medications Acetaminophen (Tylenol) 650 mg PO Q4H PRN PRN Reason: Headache/Fever or Pain Hydrocodone Bitart/Acetaminophen ([place] 10/325) 1 tab PO Q4H PRN PRN Reason: Moderate Pain (4-6) Last Admin: 08/15/17 08:46 Dose: 1 tab Al Hydroxide/Mg Hydroxide (Maalox) 30 ml PO Q6H PRN PRN Reason: Heartburn or Indigestion Albuterol/Ipratropium (Duoneb) 3 ml NEB [id number] [facility] Last Admin: 08/14/17 23:54 Dose: Not Given Allopurinol (Zyloprim) 100 mg PO DAILY [facility] Last Admin: 08/15/17 08:46 Dose: 100 mg Artificial Tears (Tears Naturale) 0 drop EA EYE PRN PRN PRN Reason: Dry Eyes Aspirin (Aspirin Chewable) 81 mg PO DAILY [facility] Last Admin: 08/15/17 08:50 Dose: 81 mg Benzonatate (Tessalon) 100 mg PO Q4H PRN PRN Reason: Cough Carvedilol (Coreg) 12.5 mg PO BID [facility] Last Admin: 08/15/17 08:49 Dose: 12.5 mg Cyanocobalamin (Vitamin B-12) 1,000 mcg PO DAILY [facility] Last Admin: 08/15/17 08:49 Dose: 1,000 mcg Dextrose/Water (Dextrose 50%) 25 gm SLOW IVP PRN PRN PRN Reason: Hypoglycemia Enoxaparin Sodium (Lovenox) 40 mg SC 0900 [facility] Last Admin: 08/15/17 08:50 Dose: 40 mg Ferrous Sulfate (Feosol) 325 mg PO QAM-[facility] Last Admin: 08/15/17 08:46 Dose: 325 mg Folic Acid (Folvite) 1 mg PO DAILY [facility] Last Admin: 08/15/17 08:50 Dose: 1 mg Furosemide (Lasix) 40 mg SLOW IVP 0600,1400 [facility] Last Admin: 08/15/17 05:04 Dose: 40 mg Glucagon (Glucagon) 1 mg IM PRN PRN PRN Reason: Hypoglycemia Guaifenesin (Robitussin Sf) 200 mg PO Q4H PRN PRN Reason: Cough Hydralazine HCl (Apresoline) 10 mg SLOW IVP Q4H PRN PRN Reason: Systolic BP > 180 Dextrose/Water (D5w) 1,000 mls @ 0 mls/hr IV .Q0M PRN; As Directed PRN Reason: Hypoglycemia Insulin Human Lispro (Humalog) 0 units SC .MODERATE SLIDING SC PRN PRN Reason: Moderate Correctional Scale Last Admin: 08/15/17 06:25 Dose: 2 unit Insulin Human Lispro (Humalog) 0 units SC .BEDTIME SLIDING SC PRN PRN Reason: Bedtime Correctional Scale Iron/Minerals/Multivitamins (Theragran M) 1 tab PO DAILY [facility] Last Admin: 08/15/17 08:49 Dose: 1 tab Lactulose (Lactulose) 20 gm PO DAILY [facility] Last Admin: 08/15/17 09:03 Dose: Not Given Levofloxacin (Levaquin) 250 mg PO 0600 [facility] Lisinopril (Zestril) 5 mg PO DAILY [facility] Last Admin: 08/15/17 08:47 Dose: 5 mg Loperamide HCl (Imodium) 2 mg PO PRN PRN PRN Reason: Diarrhea/Loose Stools Loratadine (Claritin) 10 mg PO DAILYPRN PRN PRN Reason: Sinus Symptoms Magnesium Hydroxide (Milk Of Magnesium) 30 ml PO DAILYPRN PRN PRN Reason: Constipation Magnesium Oxide (Magnesium Oxide) 400 mg PO DAILY [facility] Last Admin: 08/15/17 08:49 Dose: 400 mg Metolazone (Zaroxolyn) 5 mg PO 0830 [facility] Last Admin: 08/15/17 08:49 Dose: 5 mg Mineral Oil/White Petrolatum (Eucerin Cream) 0 gm TOP BIDPRN PRN PRN Reason: Dry Skin Morphine Sulfate (Morphine) 2 mg SLOW IVP Q4H PRN PRN Reason: Severe Pain (7-10) Nitroglycerin (Nitrostat) 0.4 mg SL Q5MIN PRN PRN Reason: Chest Pain Ondansetron HCl (Zofran Odt) 4 mg PO Q6H PRN PRN Reason: Nausea/Vomiting Ondansetron HCl (Zofran) 4 mg IVP Q6H PRN PRN Reason: Nausea/Vomiting Pantoprazole Sodium (Protonix) 40 mg PO DAILY [facility] Last Admin: 08/15/17 08:47 Dose: 40 mg Phenol (Chloraseptic [place] 180 Ml Bot) 0 ml PO PRN PRN PRN Reason: Sore Throat Potassium Chloride (K-Dur) 20 meq PO QAM-WM [facility] Last Admin: 08/15/17 08:46 Dose: 20 meq Saccharomyces Boulardii (Florastor) 250 mg PO DAILY [facility] Last Admin: 08/15/17 08:48 Dose: 250 mg Senna (Senokot) 2 tab PO HSPRN PRN PRN Reason: Constipation Sodium Chloride ([place] Nasal [place] 0.65%) 0 ml EA NARE QIDPRN PRN PRN Reason: Nasal Congestion Spironolactone (Aldactone) 25 mg PO DAILY [facility] Last Admin: 08/15/17 08:47 Dose: 25 mg Zolpidem Tartrate (Ambien) 5 mg PO HSPRN PRN PRN Reason: Insomnia Last Admin: 08/14/17 01:45 Dose: 5 mg
[2017-08-15] MEDS ORDERED: Albumin 25% 25 GM/100 ML BOT IVPB SCH (10:15)
[2017-08-15] MEDS: Morphine 4 MG/ML VIAL SLOW IVP PRN ×2 (14:54→19:59)
[2017-08-16] MEDS: Zolpidem Tartrate 5 MG TAB PO PRN (00:40)
[2017-08-16] MEDS: HYDROcodone/Acetaminophen 10/325 mg Tablet PO PRN ×5 (02:36→22:25)
[2017-08-16 05:22] LABS: #Basophils 0.1 thou/uL (0.0-0.2); #Eosinphils 0.2 thou/uL (0.0-0.7); #Monocytes 0.8 thou/uL (0.11-0.59); #Neutrophils 3.2 thou/uL (1.40-6.50); %Basophils 2.1 % (0.0-1.0); %Eosinophils 3.4 % (0.0-10.0); %Lymphocytes 32.3 % (21.0-51.0); %Monocytes 12.1 % (0.0-10.0); %Neutrophils 50.1 % (42.0-75.0); Hemoglobin 8.7 g/dL (14.0-18.0); Mean Corpuscular HGB CONC 32.7 g/dL (32.0-36.0); Mean Corpuscular Volume 94.8 fl (80.0-94.0); Mean Platelet Volume 9.1 fL (7.4-10.4); Platelet Count 156 thou/uL (130-400); RBC Distribution Width 14.5 % (11.5-14.5); White Blood Cell (WBC) Count 6.3 thou/uL (4.8-10.8)
[2017-08-16 05:32] LABS: Albumin 2.1 g/dL (3.5-5.0); Anion Gap 7 mmol/L (10-20); BUN (Urea Nitrogen) 28 mg/dL (8.9-20.6); BUN/Creatinine Ratio 17.07; Calc. Creatinine Clearance 67 mL/min (70-130); Calcium 7.9 mg/dL (7.8-10.44); Carbon Dioxide 27 mmol/L (22-29); Chloride 105 mmol/L (98-107); Estimated GFR-MDRD 55; Glucose 259 mg/dL (70-105); Phosphorus 3.6 mg/dL (2.3-4.7); Potassium 4.2 mmol/L (3.5-5.1); Sodium 135 mmol/L (136-145)
[2017-08-16] MEDS: Furosemide 40 MG/4 ML VIAL SLOW IVP SCH ×2 (05:35→15:09)
[2017-08-16] MEDS: Saccharomyces boulardii 250 MG CAP PO SCH (08:21)
[2017-08-16] MEDS: Lisinopril 5 MG TAB PO SCH (08:21)
[2017-08-16] MEDS: ALPRAZolam 1 MG TAB PO SCH ×2 (08:21→20:51)
[2017-08-16] MEDS: Multivitamin W/ Minerals 1 TAB PO SCH (08:22)
[2017-08-16] MEDS: Ferrous Sulfate 325 MG TAB PO SCH (08:22)
[2017-08-16] MEDS: Potassium Chloride 20 MEQ TAB PO SCH (08:22)
[2017-08-16] MEDS: Magnesium Oxide 400 MG TAB PO SCH (08:22)
[2017-08-16] MEDS: Carvedilol 6.25 MG TAB PO SCH ×2 (08:23→20:51)
[2017-08-16] MEDS: Spironolactone 25 MG TAB PO SCH (08:23)
[2017-08-16] MEDS: Cyanocobalamin (Vitamin B-12) 1,000 MCG TAB PO SCH (08:23)
[2017-08-16] MEDS: risperiDONE 1 MG TAB PO SCH ×2 (08:23→08:30)
[2017-08-16] MEDS: Metolazone 5 MG TAB PO SCH (08:23)
[2017-08-16] MEDS: Folic Acid 1 MG TAB PO SCH (08:23)
[2017-08-16] MEDS: Allopurinol 100 MG TAB PO SCH (08:24)
[2017-08-16] MEDS: Enoxaparin Sodium 40 MG/0.4 ML SYRINGE SC SCH ×2 (08:24→08:31)
--- NOTE | 2017-08-16 10:14 | PDOC.PN ---
- Subjective Encounter Start Date: 08/16/17 Encounter Start Time: 07:50 Patient seen and examined. No new complaints. No overnight events - Objective Resuscitation Status: Resuscitation Status FULL:Full Resuscitation MAR Reviewed: Yes Vital Signs & Weight: Vital Signs (12 hours) Temp Pulse Resp BP BP BP Pulse Ox 08/16/17 08:23 138/98 H 08/16/17 08:21 97 138/98 H 08/16/17 07:57 96 24 H 95 08/16/17 07:33 98.1 F 97 17 138/98 H 97 08/16/17 05:35 92 L 08/16/17 04:00 98.2 F 93 23 H 134/91 H 90 L 08/16/17 03:58 90 L 08/16/17 00:00 95 20 159/99 H 96 Weight Weight 183 lb I&O: 08/15/17 08/16/17 08/17/17 06:59 06:59 06:59 Intake Total 1615 1872 Output Total 2628 0435 Balance -5013 -985 Result Diagrams: 08/16/17 04:28 08/16/17 04:28 Additional Labs: Accuchecks 08/16/17 08/15/17 08/15/17 06:43 21:13 16:29 POC Glucose 188 H 233 H 161 H 08/15/17 11:00 POC Glucose 294 H EKG Reviewed by me: Yes (nsr) Phys Exam - Physical Examination Constitutional: NAD HEENT: PERRLA, moist MMs, sclera anicteric Neck: no JVD, supple Respiratory: no wheezing, no rales, no rhonchi Cardiovascular: RRR, no significant murmur, no rub Gastrointestinal: soft, non-tender, no distention, positive bowel sounds Musculoskeletal: pulses present, edema present Neurological: non-focal, normal sensation Lymphatic: no nodes Psychiatric: normal affect, A&O x 3 Skin: no rash, normal turgor Dx/Plan (1) Acute on chronic systolic heart failure Code(s): I50.23 - ACUTE ON CHRONIC SYSTOLIC (CONGESTIVE) HEART FAILURE Status : Acute (2) Healthcare associated bacterial pneumonia Code(s): J15.9 - UNSPECIFIED BACTERIAL PNEUMONIA Status: Acute (3) Hypoalbuminemia Code(s): E88.09 - OTH DISORDERS OF PLASMA-PROTEIN METABOLISM, NEC Status: Acute (4) Abdominal pain Code(s): R10.9 - UNSPECIFIED ABDOMINAL PAIN Status: Chronic Qualifiers: Abdominal location: generalized Qualified Code(s): R10.84 - Generalized abdominal pain (5) Anxiety and depression Code(s): F41.9 - ANXIETY DISORDER, UNSPECIFIED; F32.9 - MAJOR DEPRESSIVE DISORDER, SINGLE EPISODE, UNSPECIFIED Status: Chronic (6) Bipolar 1 disorder Code(s): F31.9 - BIPOLAR DISORDER, UNSPECIFIED Status: Chronic (7) Cirrhosis of liver with ascites Code(s): K74.60 - UNSPECIFIED CIRRHOSIS OF LIVER Status: Chronic (8) Cocaine abuse Code(s): F14.10 - COCAINE ABUSE, UNCOMPLICATED Status: Chronic (9) DM type 2 (diabetes mellitus, type 2) Status: Chronic (10) HTN (hypertension) Code(s): I10 - ESSENTIAL (PRIMARY) HYPERTENSION Status: Chronic (11) Hepatitis C Code(s): B19.20 - UNSPECIFIED VIRAL HEPATITIS C WITHOUT HEPATIC COMA Status: Chronic Qualifiers: (12) Moderate protein-calorie malnutrition Code(s): E44.0 - MODERATE PROTEIN-CALORIE MALNUTRITION Status: Chronic (13) Non-ischemic cardiomyopathy Code(s): I42.8 - OTHER CARDIOMYOPATHIES Status: Chronic (14) Noncompliance Code(s): Z91.19 - PATIENT'S NONCOMPLIANCE W OTH MEDICAL TREATMENT AND REGIMEN Status: Chronic (15) Normocytic anemia Code(s): D64.9 - ANEMIA, UNSPECIFIED Status: Chronic (16) Portal vein thrombosis Code(s): I81 - PORTAL VEIN THROMBOSIS Status: Chronic Comment: ESLD (17) Transaminitis Code(s): R74.0 - NONSPEC ELEV OF LEVELS OF TRANSAMNS & LACTIC ACID DEHYDRGNSE Status: Chronic Comment: ESLD (18) Varices, esophageal Code(s): I85.00 - ESOPHAGEAL VARICES WITHOUT BLEEDING Status: Chronic Comment: ESLD - Plan cont current plan of care, plan discussed w/ family, continue antibiotics, respiratory therapy * code status again addressed, he wants to be a full code and he has not made decision at this time * palliative care consult * will benefit from one more days diuresis * expecting discharge tomorrow * medication reviewed as below * symptomatic treatment. Review of Systems - Review of Systems ENT: negative: Ear Pain, Ear Discharge, Nose Pain, Nose Discharge, Nose Congestion, Mouth Pain, Mouth Swelling, Throat Pain, Throat Swelling, Other Respiratory: negative: Cough, Dry, Shortness of Breath, Hemoptysis, SOB with Excertion, Pleuritic Pain, Sputum, Wheezing Cardiovascular: edema. negative: chest pain, palpitations, orthopnea, paroxysmal nocturnal dyspnea, light headedness, other Gastrointestinal: negative: Nausea, Vomiting, Abdominal Pain, Diarrhea, Constipation, Melena, Hematochezia, Other Genitourinary: negative: Dysuria, Frequency, Incontinence, Hematuria, Retention , Other Musculoskeletal: negative: Neck Pain, Shoulder Pain, Arm Pain, Back Pain, Hand Pain, Leg Pain, Foot Pain, Other Skin: negative: Rash, Lesions, Chad, Bruising, Other - Medications/Allergies Allergies/Adverse Reactions: Allergies Allergy/AdvReac Type Severity Reaction Status Date / Time ibuprofen [From Motrin] Allergy Intermediate Short of Verified 11/27/15 17:55 Breath fentanyl Allergy Verified 11/27/15 17:55 ketorolac tromethamine Allergy Short of Verified 11/27/15 17:55 [From Toradol] Breath NSAIDS (Non-Steroidal Allergy Short of Verified 11/27/15 17:55 Anti-Inflamma Breath tramadol HCl [From Ultram] Allergy Short of Verified 11/27/15 17:55 Breath Medications: Current Medications Acetaminophen (Tylenol) 650 mg PO Q4H PRN PRN Reason: Headache/Fever or Pain Hydrocodone Bitart/Acetaminophen ([place] 10/325) 1 tab PO Q4H PRN PRN Reason: Moderate Pain (4-6) Last Admin: 08/16/17 08:22 Dose: 1 tab Al Hydroxide/Mg Hydroxide (Maalox) 30 ml PO Q6H PRN PRN Reason: Heartburn or Indigestion Albuterol/Ipratropium (Duoneb) 3 ml NEB [id number] [facility] Last Admin: 08/16/17 07:57 Dose: 3 ml Allopurinol (Zyloprim) 100 mg PO DAILY [facility] Last Admin: 08/16/17 08:24 Dose: 100 mg Alprazolam (Xanax) 2 mg PO BID [facility] Last Admin: 08/16/17 08:21 Dose: 2 mg Artificial Tears (Tears Naturale) 0 drop EA EYE PRN PRN PRN Reason: Dry Eyes Aspirin (Aspirin Chewable) 81 mg PO DAILY [facility] Last Admin: 08/16/17 08:22 Dose: 81 mg Benzonatate (Tessalon) 100 mg PO Q4H PRN PRN Reason: Cough Carvedilol (Coreg) 12.5 mg PO BID [facility] Last Admin: 08/16/17 08:23 Dose: 12.5 mg Cyanocobalamin (Vitamin B-12) 1,000 mcg PO DAILY [facility] Last Admin: 08/16/17 08:23 Dose: 1,000 mcg Dextrose/Water (Dextrose 50%) 25 gm SLOW IVP PRN PRN PRN Reason: Hypoglycemia Enoxaparin Sodium (Lovenox) 40 mg SC 0900 [facility] Last Admin: 08/16/17 08:31 Dose: Not Given Ferrous Sulfate (Feosol) 325 mg PO QA-[facility] Last Admin: 08/16/17 08:22 Dose: 325 mg Folic Acid (Folvite) 1 mg PO DAILY [facility] Last Admin: 08/16/17 08:23 Dose: 1 mg Furosemide (Lasix) 40 mg SLOW IVP 0600,1400 [facility] Last Admin: 08/16/17 05:35 Dose: 40 mg Glucagon (Glucagon) 1 mg IM PRN PRN PRN Reason: Hypoglycemia Guaifenesin (Robitussin Sf) 200 mg PO Q4H PRN PRN Reason: Cough Hydralazine HCl (Apresoline) 10 mg SLOW IVP Q4H PRN PRN Reason: Systolic BP > 180 Dextrose/Water (D5w) 1,000 mls @ 0 mls/hr IV .Q0M PRN; As Directed PRN Reason: Hypoglycemia Insulin Human Lispro (Humalog) 0 units SC .MODERATE SLIDING SC PRN PRN Reason: Moderate Correctional Scale Last Admin: 08/15/17 13:21 Dose: 6 unit Insulin Human Lispro (Humalog) 0 units SC .BEDTIME SLIDING SC PRN PRN Reason: Bedtime Correctional Scale Last Admin: 08/15/17 21:54 Dose: 2 unit Iron/Minerals/Multivitamins (Theragran M) 1 tab PO DAILY [facility] Last Admin: 08/16/17 08:22 Dose: 1 tab Lactulose (Lactulose) 20 gm PO DAILY [facility] Last Admin: 08/16/17 08:30 Dose: Not Given Levofloxacin (Levaquin) 250 mg PO 0600 [facility] Last Admin: 08/16/17 05:36 Dose: 250 mg Lisinopril (Zestril) 5 mg PO DAILY [facility] Last Admin: 08/16/17 08:21 Dose: 5 mg Loperamide HCl (Imodium) 2 mg PO PRN PRN PRN Reason: Diarrhea/Loose Stools Loratadine (Claritin) 10 mg PO DAILYPRN PRN PRN Reason: Sinus Symptoms Magnesium Hydroxide (Milk Of Magnesium) 30 ml PO DAILYPRN PRN PRN Reason: Constipation Magnesium Oxide (Magnesium Oxide) 400 mg PO DAILY [facility] Last Admin: 08/16/17 08:22 Dose: 400 mg Metolazone (Zaroxolyn) 5 mg PO 0830 [facility] Last Admin: 08/16/17 08:23 Dose: 5 mg Mineral Oil/White Petrolatum (Eucerin Cream) 0 gm TOP BIDPRN PRN PRN Reason: Dry Skin Morphine Sulfate (Morphine) 2 mg SLOW IVP Q4H PRN PRN Reason: Severe Pain (7-10) Last Admin: 08/15/17 19:59 Dose: 2 mg Nitroglycerin (Nitrostat) 0.4 mg SL Q5MIN PRN PRN Reason: Chest Pain Ondansetron HCl (Zofran Odt) 4 mg PO Q6H PRN PRN Reason: Nausea/Vomiting Ondansetron HCl (Zofran) 4 mg IVP Q6H PRN PRN Reason: Nausea/Vomiting Pantoprazole Sodium (Protonix) 40 mg PO DAILY [facility] Last Admin: 08/16/17 08:23 Dose: 40 mg Phenol (Chloraseptic [place] 180 Ml Bot) 0 ml PO PRN PRN PRN Reason: Sore Throat Potassium Chloride (K-Dur) 20 meq PO QAM-WM [facility] Last Admin: 08/16/17 08:22 Dose: 20 meq Risperidone (Risperidone) 0.5 mg PO DAILY [facility] Last Admin: 08/16/17 08:30 Dose: Not Given Saccharomyces Boulardii (Florastor) 250 mg PO DAILY [facility] Last Admin: 08/16/17 08:21 Dose: 250 mg Senna (Senokot) 2 tab PO HSPRN PRN PRN Reason: Constipation Sodium Chloride ([place] Nasal [place] 0.65%) 0 ml EA NARE QIDPRN PRN PRN Reason: Nasal Congestion Sodium Chloride (Flush - Normal Saline) 10 ml IVF Q12HR [facility] Last Admin: 08/15/17 20:00 Dose: 10 ml Sodium Chloride (Flush - Normal Saline) 10 ml IVF PRN PRN PRN Reason: Saline Flush Last Admin: 08/16/17 05:36 Dose: 10 ml Spironolactone (Aldactone) 25 mg PO DAILY [facility] Last Admin: 08/16/17 08:23 Dose: 25 mg Zolpidem Tartrate (Ambien) 5 mg PO HSPRN PRN PRN Reason: Insomnia Last Admin: 08/16/17 00:40 Dose: 5 mg
[2017-08-16] MEDS: HumaLOG 300 UNITS/3 ML VIAL SC PRN ×2 (12:09→20:52)
[2017-08-17] MEDS: Morphine 4 MG/ML VIAL SLOW IVP PRN (01:31)
[2017-08-17] MEDS: HYDROcodone/Acetaminophen 10/325 mg Tablet PO PRN ×2 (02:44→06:46)
[2017-08-17] MEDS: Furosemide 40 MG/4 ML VIAL SLOW IVP SCH (05:37)
[2017-08-17] MEDS: Metolazone 5 MG TAB PO SCH (08:59)
[2017-08-17] MEDS: Potassium Chloride 20 MEQ TAB PO SCH (08:59)
[2017-08-17] MEDS: Ferrous Sulfate 325 MG TAB PO SCH (08:59)
[2017-08-17] MEDS: Allopurinol 100 MG TAB PO SCH (09:01)
[2017-08-17] MEDS: ALPRAZolam 1 MG TAB PO SCH (09:01)
[2017-08-17] MEDS: Carvedilol 6.25 MG TAB PO SCH (09:04)
[2017-08-17] MEDS: Folic Acid 1 MG TAB PO SCH (09:05)
[2017-08-17] MEDS: Magnesium Oxide 400 MG TAB PO SCH (09:06)
[2017-08-17] MEDS: Cyanocobalamin (Vitamin B-12) 1,000 MCG TAB PO SCH (09:09)
[2017-08-17] MEDS: Multivitamin W/ Minerals 1 TAB PO SCH (09:10)
[2017-08-17] MEDS: Enoxaparin Sodium 40 MG/0.4 ML SYRINGE SC SCH (09:10)
[2017-08-17] MEDS: Lisinopril 5 MG TAB PO SCH (09:10)
[2017-08-17] MEDS: risperiDONE 1 MG TAB PO SCH (09:11)
[2017-08-17] MEDS: Spironolactone 25 MG TAB PO SCH (09:13)
[2017-08-17] MEDS: Saccharomyces boulardii 250 MG CAP PO SCH (09:13)
[2017-08-17 09:25] VITALS: BP 165/88; TEMP 98.7
--- NOTE | 2017-08-17 10:38 | PDOC.PN ---
- Subjective Encounter Start Date: 08/17/17 Encounter Start Time: 10:00 Patient seen and examined. No new complaints. No overnight events - Objective Resuscitation Status: Resuscitation Status FULL:Full Resuscitation MAR Reviewed: Yes Vital Signs & Weight: Vital Signs (12 hours) Temp Pulse Resp BP BP BP Pulse Ox 08/17/17 08:55 98.7 F 66 20 165/88 H 94 L 08/17/17 08:05 100 08/17/17 07:58 96 24 H 08/17/17 05:34 96 20 139/94 H 08/17/17 04:17 96 08/17/17 04:00 98.3 F 96 16 158/102 H 95 08/17/17 01:12 100 24 H 160/102 H 95 Weight Weight 185 lb I&O: 08/16/17 08/17/17 08/18/17 06:59 06:59 06:59 Intake Total 1872 2147.5 Output Total 2525 1695 Balance -653 452.5 Result Diagrams: 08/16/17 04:28 08/16/17 04:28 Additional Labs: Accuchecks 08/17/17 08/16/17 08/16/17 05:55 19:55 18:45 POC Glucose 163 H 243 H 188 H 08/16/17 11:44 POC Glucose 305 H EKG Reviewed by me: Yes Phys Exam - Physical Examination Constitutional: NAD HEENT: PERRLA, moist MMs, sclera anicteric Neck: no JVD, supple Respiratory: no wheezing, no rales, no rhonchi Cardiovascular: RRR, no significant murmur, no rub Gastrointestinal: soft, non-tender, no distention Musculoskeletal: no edema, pulses present Neurological: non-focal, normal sensation Lymphatic: no nodes Psychiatric: normal affect Skin: no rash, normal turgor Dx/Plan (1) Acute on chronic systolic heart failure Code(s): I50.23 - ACUTE ON CHRONIC SYSTOLIC (CONGESTIVE) HEART FAILURE Status : Acute (2) Healthcare associated bacterial pneumonia Code(s): J15.9 - UNSPECIFIED BACTERIAL PNEUMONIA Status: Acute (3) Hypoalbuminemia Code(s): E88.09 - OTH DISORDERS OF PLASMA-PROTEIN METABOLISM, NEC Status: Acute (4) Abdominal pain Code(s): R10.9 - UNSPECIFIED ABDOMINAL PAIN Status: Chronic Qualifiers: Abdominal location: generalized Qualified Code(s): R10.84 - Generalized abdominal pain (5) Anxiety and depression Code(s): F41.9 - ANXIETY DISORDER, UNSPECIFIED; F32.9 - MAJOR DEPRESSIVE DISORDER, SINGLE EPISODE, UNSPECIFIED Status: Chronic (6) Bipolar 1 disorder Code(s): F31.9 - BIPOLAR DISORDER, UNSPECIFIED Status: Chronic (7) Cirrhosis of liver with ascites Code(s): K74.60 - UNSPECIFIED CIRRHOSIS OF LIVER Status: Chronic (8) Cocaine abuse Code(s): F14.10 - COCAINE ABUSE, UNCOMPLICATED Status: Chronic (9) DM type 2 (diabetes mellitus, type 2) Status: Chronic (10) HTN (hypertension) Code(s): I10 - ESSENTIAL (PRIMARY) HYPERTENSION Status: Chronic (11) Hepatitis C Code(s): B19.20 - UNSPECIFIED VIRAL HEPATITIS C WITHOUT HEPATIC COMA Status: Chronic Qualifiers: (12) Moderate protein-calorie malnutrition Code(s): E44.0 - MODERATE PROTEIN-CALORIE MALNUTRITION Status: Chronic (13) Non-ischemic cardiomyopathy Code(s): I42.8 - OTHER CARDIOMYOPATHIES Status: Chronic (14) Noncompliance Code(s): Z91.19 - PATIENT'S NONCOMPLIANCE W OTH MEDICAL TREATMENT AND REGIMEN Status: Chronic (15) Normocytic anemia Code(s): D64.9 - ANEMIA, UNSPECIFIED Status: Chronic (16) Portal vein thrombosis Code(s): I81 - PORTAL VEIN THROMBOSIS Status: Chronic Comment: ESLD (17) Transaminitis Code(s): R74.0 - NONSPEC ELEV OF LEVELS OF TRANSAMNS & LACTIC ACID DEHYDRGNSE Status: Chronic Comment: ESLD (18) Varices, esophageal Code(s): I85.00 - ESOPHAGEAL VARICES WITHOUT BLEEDING Status: Chronic Comment: ESLD - Plan cont current plan of care, plan discussed w/ family * medication reviewed as below * symptomatic treatment * see discharge ronna. . Review of Systems - Review of Systems ENT: negative: Ear Pain, Ear Discharge, Nose Pain, Nose Discharge, Nose Congestion, Mouth Pain, Mouth Swelling, Throat Pain, Throat Swelling, Other Respiratory: negative: Cough, Dry, Shortness of Breath, Hemoptysis, SOB with Excertion, Pleuritic Pain, Sputum, Wheezing Cardiovascular: negative: chest pain, palpitations, orthopnea, paroxysmal nocturnal dyspnea, edema, light headedness, other Gastrointestinal: negative: Nausea, Vomiting, Abdominal Pain, Diarrhea, Constipation, Melena, Hematochezia, Other Genitourinary: negative: Dysuria, Frequency, Incontinence, Hematuria, Retention , Other Musculoskeletal: negative: Neck Pain, Shoulder Pain, Arm Pain, Back Pain, Hand Pain, Leg Pain, Foot Pain, Other Skin: negative: Rash, Lesions, Chad, Bruising, Other - Medications/Allergies Allergies/Adverse Reactions: Allergies Allergy/AdvReac Type Severity Reaction Status Date / Time ibuprofen [From Motrin] Allergy Intermediate Short of Verified 11/27/15 17:55 Breath fentanyl Allergy Verified 11/27/15 17:55 ketorolac tromethamine Allergy Short of Verified 11/27/15 17:55 [From Toradol] Breath NSAIDS (Non-Steroidal Allergy Short of Verified 11/27/15 17:55 Anti-Inflamma Breath tramadol HCl [From Ultram] Allergy Short of Verified 11/27/15 17:55 Breath Medications: Current Medications Acetaminophen (Tylenol) 650 mg PO Q4H PRN PRN Reason: Headache/Fever or Pain Hydrocodone Bitart/Acetaminophen ([place] 10/325) 1 tab PO Q4H PRN PRN Reason: Moderate Pain (4-6) Last Admin: 08/17/17 06:46 Dose: 1 tab Al Hydroxide/Mg Hydroxide (Maalox) 30 ml PO Q6H PRN PRN Reason: Heartburn or Indigestion Albuterol/Ipratropium (Duoneb) 3 ml NEB [id number] [facility] Last Admin: 08/17/17 07:58 Dose: 3 ml Allopurinol (Zyloprim) 100 mg PO DAILY [facility] Last Admin: 08/17/17 09:01 Dose: Not Given Alprazolam (Xanax) 2 mg PO BID [facility] Last Admin: 08/17/17 09:01 Dose: 2 mg Artificial Tears (Tears Naturale) 0 drop EA EYE PRN PRN PRN Reason: Dry Eyes Aspirin (Aspirin Chewable) 81 mg PO DAILY [facility] Last Admin: 08/17/17 09:04 Dose: 81 mg Benzonatate (Tessalon) 100 mg PO Q4H PRN PRN Reason: Cough Carvedilol (Coreg) 12.5 mg PO BID [facility] Last Admin: 08/17/17 09:04 Dose: 12.5 mg Cyanocobalamin (Vitamin B-12) 1,000 mcg PO DAILY [facility] Last Admin: 08/17/17 09:09 Dose: 1,000 mcg Dextrose/Water (Dextrose 50%) 25 gm SLOW IVP PRN PRN PRN Reason: Hypoglycemia Enoxaparin Sodium (Lovenox) 40 mg SC 0900 [facility] Last Admin: 08/17/17 09:10 Dose: 40 mg Ferrous Sulfate (Feosol) 325 mg PO QAM[facility] Last Admin: 08/17/17 08:59 Dose: 325 mg Folic Acid (Folvite) 1 mg PO DAILY [facility] Last Admin: 08/17/17 09:05 Dose: 1 mg Furosemide (Lasix) 40 mg SLOW IVP 0600,1400 [facility] Last Admin: 08/17/17 05:37 Dose: 40 mg Glucagon (Glucagon) 1 mg IM PRN PRN PRN Reason: Hypoglycemia Guaifenesin (Robitussin Sf) 200 mg PO Q4H PRN PRN Reason: Cough Hydralazine HCl (Apresoline) 10 mg SLOW IVP Q4H PRN PRN Reason: Systolic BP > 180 Dextrose/Water (D5w) 1,000 mls @ 0 mls/hr IV .Q0M PRN; As Directed PRN Reason: Hypoglycemia Insulin Human Lispro (Humalog) 0 units SC .MODERATE SLIDING SC PRN PRN Reason: Moderate Correctional Scale Last Admin: 08/16/17 12:09 Dose: 8 unit Insulin Human Lispro (Humalog) 0 units SC .BEDTIME SLIDING SC PRN PRN Reason: Bedtime Correctional Scale Last Admin: 08/16/17 20:52 Dose: 2 unit Iron/Minerals/Multivitamins (Theragran M) 1 tab PO DAILY [facility] Last Admin: 08/17/17 09:10 Dose: 1 tab Lactulose (Lactulose) 20 gm PO DAILY [facility] Last Admin: 08/17/17 09:07 Dose: 20 gm Levofloxacin (Levaquin) 250 mg PO 0600 [facility] Last Admin: 08/17/17 05:37 Dose: 250 mg Lisinopril (Zestril) 5 mg PO DAILY [facility] Last Admin: 08/17/17 09:10 Dose: 5 mg Loperamide HCl (Imodium) 2 mg PO PRN PRN PRN Reason: Diarrhea/Loose Stools Loratadine (Claritin) 10 mg PO DAILYPRN PRN PRN Reason: Sinus Symptoms Magnesium Hydroxide (Milk Of Magnesium) 30 ml PO DAILYPRN PRN PRN Reason: Constipation Magnesium Oxide (Magnesium Oxide) 400 mg PO DAILY [facility] Last Admin: 08/17/17 09:06 Dose: 400 mg Metolazone (Zaroxolyn) 5 mg PO 0830 [facility] Last Admin: 08/17/17 08:59 Dose: 5 mg Mineral Oil/White Petrolatum (Eucerin Cream) 0 gm TOP BIDPRN PRN PRN Reason: Dry Skin Morphine Sulfate (Morphine) 2 mg SLOW IVP Q4H PRN PRN Reason: Severe Pain (7-10) Last Admin: 08/17/17 01:31 Dose: 2 mg Nitroglycerin (Nitrostat) 0.4 mg SL Q5MIN PRN PRN Reason: Chest Pain Ondansetron HCl (Zofran Odt) 4 mg PO Q6H PRN PRN Reason: Nausea/Vomiting Ondansetron HCl (Zofran) 4 mg IVP Q6H PRN PRN Reason: Nausea/Vomiting Pantoprazole Sodium (Protonix) 40 mg PO DAILY [facility] Last Admin: 08/17/17 09:10 Dose: 40 mg Phenol (Chloraseptic [place] 180 Ml Bot) 0 ml PO PRN PRN PRN Reason: Sore Throat Potassium Chloride (K-Dur) 20 meq PO QAM-WM [facility] Last Admin: 08/17/17 08:59 Dose: 20 meq Risperidone (Risperidone) 0.5 mg PO DAILY [facility] Last Admin: 08/17/17 09:11 Dose: 0.5 mg Saccharomyces Boulardii (Florastor) 250 mg PO DAILY [facility] Last Admin: 08/17/17 09:13 Dose: 250 mg Senna (Senokot) 2 tab PO HSPRN PRN PRN Reason: Constipation Sodium Chloride ([place] Nasal [place] 0.65%) 0 ml EA NARE QIDPRN PRN PRN Reason: Nasal Congestion Sodium Chloride (Flush - Normal Saline) 10 ml IVF Q12HR [facility] Last Admin: 08/17/17 09:14 Dose: 10 ml Sodium Chloride (Flush - Normal Saline) 10 ml IVF PRN PRN PRN Reason: Saline Flush Last Admin: 08/17/17 05:38 Dose: 10 ml Spironolactone (Aldactone) 25 mg PO DAILY [facility] Last Admin: 08/17/17 09:13 Dose: 25 mg Zolpidem Tartrate (Ambien) 5 mg PO HSPRN PRN PRN Reason: Insomnia Last Admin: 08/16/17 00:40 Dose: 5 mg
--- NOTE | 2017-08-17 11:29 | DIS ---
DATE OF ADMISSION: 08/13/2017 DATE OF DISCHARGE: 08/17/2017 PRIMARY CARE PHYSICIAN: [facility] call admission. DISCHARGE DISPOSITION: Home. PRIMARY DISCHARGE DIAGNOSES: 1. Acute on chronic systolic congestive heart failure. 2. Healthcare-associated bacterial pneumonia. 3. Hypoalbuminemia. SECONDARY DISCHARGE DIAGNOSES: Chronic abdominal pain, chronic hydrocele, chronic abnormal liver fun ction tests, portal vein thrombosis, ascites, normocytic anemia, noncompliance with the treatment, no nischemic cardiomyopathy, moderate protein-calorie malnutrition, hypertension, chronic hepatitis C, d iabetes type 1, cocaine abuse, cirrhosis of liver with ascites, bipolar 1 disorder, anxiety and depre ssion, chronic abdominal pain. PRIMARY PROCEDURE/OPERATION: None. RADIOLOGICAL INVESTIGATION: Chest x-ray. SIGNIFICANT LABS: Hemoglobin 8.7. INR 1.4, creatinine 1.64. Urinalysis unremarkable. Urine drug s creen, positive for cocaine. Blood culture negative. Influenza negative. DISCHARGE MEDICATIONS: Tylenol #3 one tablet q.6 hourly p.r.n., allopurinol 100 mg p.o. daily, Xanax 2 mg p.o. b.i.d., aspirin 81 mg p.o. daily, Coreg 12.5 mg p.o. b.i.d., Catapres 0.2 mg p.o. daily, v itamin B12 1000 mcg p.o. daily, ferrous sulfate 325 mg p.o. daily, folic acid 1 mg p.o. daily, Lasix 80 mg p.o. b.i.d., Squire 10 one or two tablets t.i.d. p.r.n., Levemir insulin 40 units subcu at [facility], lactulose 20 grams p.o. daily, Levaquin 250 mg p.o. daily for 7 days, lisinopril 5 mg p.o. daily, Zaroxolyn 5 mg p.o. daily p.r.n. for weight gain, multivitamin 1 tablet p.o. daily, omeprazole 20 mg p.o. daily, Zofran ODT 4 mg q.6 hourly p.r.n., potassium chloride 20 mEq p.o. daily, risperidone 0.5 mg p.o. daily, Florastor 250 mg p.o. daily for 7 days and Aldactone 25 mg p.o. daily. CONTRAINDICATIONS: None. CODE STATUS: FULL CODE. INPATIENT CONSULTANTS: None. ALLERGIES: IBUPROFEN, FENTANYL, TORADOL and NSAIDS. DISCHARGE PLAN: Post hospital, the patient will follow up with [facility] primary care dian matthews as instructed. HOSPITAL COURSE: A 46-year-old male who was recently admitted to [facility] where he was treated for CHF exacerbation and discharged home. This time, he came to hospital with cough and inc reasing shortness of breath. His chest x-ray showed right middle lobe infiltration. This patient wa s also having a lot of edema in his legs. He was admitted for both CHF exacerbation as well as pneum onia. His pneumonia was treated with levofloxacin, Rocephin and subsequently Levaquin changed to p.o ., based on renal dose. His pneumonia is significantly improved. His CHF was treated with IV Lasix and Zaroxolyn and now by the time of discharge, he does not have any significant edema. He is on rose marie m air and he is ambulatory. He does not have any orthopnea. His JVD is also reduced. Even with diuresis therapy, his renal function was improving. By the time of discharge, the patient is stable for discharge. All new medication prescriptions given to him. The patient is seen and examined at bedside today. Please see my progress note from today for furthe r details. This patient was not making mind to make a DNR. There was discrepancy between patient as well as the patient's fiancee and that is why the patient wanted to wait until he makes DNR. Please see my progress note from today for further details.
== END 2017-08-17 12:11 | disposition home or self-care (01) | DRG 291 ==
LOC: ERS 09:15 → 2NO 14:30
PROVIDERS: ADMIT Internal Medicine; ATTEND Internal Medicine
DX: I13.0 Hypertensive heart and chronic kidney disease with heart failure and stage 1 through stage 4 chronic kidney disease, or unspecified chronic kidney disease (principal); I81 Portal vein thrombosis; J15.9 Unspecified bacterial pneumonia; E11.22 Type 2 diabetes mellitus with diabetic chronic kidney disease; E44.0 Moderate protein-calorie malnutrition; K76.6 Portal hypertension; I42.8 Other cardiomyopathies; E88.09 Other disorders of plasma-protein metabolism, not elsewhere classified; I85.00 Esophageal varices without bleeding; I50.43 Acute on chronic combined systolic (congestive) and diastolic (congestive) heart failure; B18.2 Chronic viral hepatitis C; D64.9 Anemia, unspecified; K74.60 Unspecified cirrhosis of liver; Y95 Nosocomial condition; G89.29 Other chronic pain; Z79.891 Long term (current) use of opiate analgesic; Z91.14 Patient's other noncompliance with medication regimen; F19.10 Other psychoactive substance abuse, uncomplicated; Z68.29 Body mass index [BMI] 29.0-29.9, adult; F41.9 Anxiety disorder, unspecified; F32.9 Major depressive disorder, single episode, unspecified; F31.9 Bipolar disorder, unspecified; Z88.8 Allergy status to other drugs, medicaments and biological substances; Z79.82 Long term (current) use of aspirin; Z79.4 Long term (current) use of insulin; N18.2 Chronic kidney disease, stage 2 (mild); K71.51 Toxic liver disease with chronic active hepatitis with ascites; K21.9 Gastro-esophageal reflux disease without esophagitis; R10.9 Unspecified abdominal pain; N43.3 Hydrocele, unspecified; F14.10 Cocaine abuse, uncomplicated; I25.2 Old myocardial infarction
CPT/HCPCS: 36415; 36416; 71010; 80053; 80069; 80306; 81001; 82550; 82553; 83605; 83690; 83880; 84484; 84550; 85025; 85610; 85730; 87040; 93005; 93798; 94640; 96365; 96367; 96375; A4216; J1650; J1940; J1956; J2270; J2405; J2543; J3370; J7050; J7620; P9047

== ENCOUNTER 2017-08-23 01:57 | Inpatient (IN) | payer OTHER ==
[2017-08-23 02:30] LABS: #Basophils 0.2 thou/uL (0.0-0.2); #Eosinphils 0.2 thou/uL (0.0-0.7); #Lymphocytes 2.4 thou/uL (1.20-3.40); #Monocytes 0.6 thou/uL (0.11-0.59); %Basophils 2.3 % (0.0-1.0); %Eosinophils 2.3 % (0.0-10.0); %Lymphocytes 32.6 % (21.0-51.0); %Monocytes 8.2 % (0.0-10.0); %Neutrophils 54.6 % (42.0-75.0); Hemoglobin 9.9 g/dL (14.0-18.0); Mean Corpuscular HGB CONC 33.9 g/dL (32.0-36.0); Mean Corpuscular Hemoglobin 32.1 pg (27.0-31.0); Mean Corpuscular Volume 94.8 fl (80.0-94.0); Mean Platelet Volume 8.9 fL (7.4-10.4); Platelet Count 175 thou/uL (130-400); RBC Distribution Width 14.2 % (11.5-14.5); Red Blood Cell (RBC) Count 3.07 mill/uL (4.70-6.10); White Blood Cell (WBC) Count 7.3 thou/uL (4.8-10.8)
[2017-08-23 02:41] LABS: Anion Gap 8 mmol/L (10-20); BUN (Urea Nitrogen) 26 mg/dL (8.9-20.6); Calc. Creatinine Clearance 0 mL/min (70-130); Carbon Dioxide 26 mmol/L (22-29); Chloride 105 mmol/L (98-107); Estimated GFR-MDRD 51; Potassium 3.9 mmol/L (3.5-5.1); Sodium 135 mmol/L (136-145)
[2017-08-23 02:42] LABS: ALT (SGPT) 43 U/L (8-55); AST (SGOT) 75 U/L (5-34); Albumin 2.1 g/dL (3.5-5.0); Alkaline Phosphatase 396 U/L (40-150); Bilirubin, Total 0.7 mg/dL (0.2-1.2); Globulin 4.9 g/dL (2.4-3.5); Glucose 368 mg/dL (70-105)
[2017-08-23 02:45] LABS: Troponin I 0.201 ng/mL (< 0.028)
[2017-08-23] MEDS ORDERED: Furosemide 100 MG/10 ML VIAL ONE (04:30)
[2017-08-23] MEDS ORDERED: Nitroglycerin 2% Ointment 1 INCH/1 GM Packet ONE (04:59)
[2017-08-23] MEDS ORDERED: HYDROcodone/Acetaminophen 10/325 mg Tablet ONE ×2 (05:16→11:52)
[2017-08-23] MEDS ORDERED: Albuterol Sulfate 2.5 mg/0.5 ml Neb ONE ×2 (06:55)
--- NOTE | 2017-08-23 08:09 | RAD ---
CHEST: Date: 08-23-17 Comparison: 12-07-15 History: Shortness of breath. FINDINGS: There is no pneumothorax seen. There are coarse linear interstitial densities in the perihilar region s. Both lung bases demonstrate interstitial and alveolar opacity, nonspecific and new. No significant pleural fluid is seen on lateral imaging. IMPRESSION: Extensive new interstitial and alveolar opacity in the perihilar regions of both lung bases. Findings may signify multifocal infectious pneumonitis/aspiration. Pulmonary edema is a possibility. Follow u p to resolution advised. POS: [facility]
[2017-08-23 09:47] LABS: Troponin I 0.136 ng/mL (< 0.028)
[2017-08-23] MEDS ORDERED: cloNIDine 0.1 MG TAB PO PRN (11:06)
[2017-08-23] MEDS ORDERED: Metolazone 5 MG TAB PO PRN (11:06)
[2017-08-23] MEDS ORDERED: hydrALAZINE 20 MG/ML VIAL SLOW IVP PRN (11:06)
[2017-08-23] MEDS ORDERED: Ondansetron ODT 4 MG TAB PO PRN (11:06)
[2017-08-23] MEDS ORDERED: Dextrose 5% in Water 1,000 ML IV PRN (11:06)
[2017-08-23] MEDS ORDERED: Dextrose 50% Abboject 50 ML SYRINGE SLOW IVP PRN (11:06)
[2017-08-23] MEDS ORDERED: HYDROcodone/Acetaminophen 10/325 mg Tablet PO PRN ×3 (11:06→11:51)
[2017-08-23] MEDS ORDERED: Acetaminophen 500 MG TAB PO PRN (11:06)
[2017-08-23] MEDS ORDERED: HumaLOG 300 UNITS/3 ML VIAL SC PRN ×2 (11:06)
[2017-08-23] MEDS ORDERED: Ondansetron HCl/PF 4 MG/2 ML Vial IVP PRN (11:06)
[2017-08-23] MEDS ORDERED: Lorazepam 2 MG/ML VIAL SLOW IVP PRN (11:06)
[2017-08-23] MEDS ORDERED: Lorazepam 2 MG/ML VIAL ONE (11:51)
[2017-08-23] MEDS ORDERED: risperiDONE 1 MG TAB ONE (11:51)
[2017-08-23] MEDS ORDERED: cloNIDine 0.1 MG TAB ONE (11:52)
[2017-08-23] MEDS ORDERED: Famotidine/PF 20 mg/2ml Vial ONE (12:05)
[2017-08-23] MEDS ORDERED: Spironolactone 25 MG TAB PO SCH (12:15)
[2017-08-23] MEDS ORDERED: Furosemide 40 MG/4 ML VIAL ONE (13:38)
--- NOTE | 2017-08-23 14:13 | HP ---
DATE OF ADMISSION: 08/23/2017 PRIMARY CARE PROVIDER: Panfilo mosqueda. CHIEF COMPLAINT: Shortness of breath. HISTORY OF PRESENT ILLNESS: This is a 46-year-old -[place] male who presented to [facility] Emergency Department complaining of increased shortness of breath in the context of known is chemic cardiomyopathy with ejection fraction in the 20%-25% range. The patient was recently admitted to [facility] from 08/13/2017-08/17/2017 for acute on chronic systolic conges tive heart failure exacerbation in conjunction with a diagnosed health care associated bacterial pneu monia. Patient was treated with IV Lasix and Zaroxolyn as well as IV antibiotic therapy, transitioni ng to oral Levaquin for discharge. The patient states he developed increasing shortness of breath in the last 24-48 hours, presenting to the emergency room for evaluation. The patient denied any speci fic sudden increase in lower extremity edema, but states he has a baseline amount of swelling daily. The patient admits to increased cough, congestion, and cannot lie on his back. The patient states t hat he lays in a position with his head down. He can have more relief of his shortness of brianda th. The patient denies any fever, chills, or productive cough. Patient does admit to nonproductive cough similar to his presentation in late 07/2017. Patient states he has been compliant with his med ication regimen, but states he is tired of having to deal with the swelling of his legs and shortness of breath. The patient states this increased shortness of breath causes increased anxiety and promp corbin him to seek medical attention. The patient was apparently evaluated by the Palliative Care Servi ce during his last admission with recommendations to pursue hospice care. The patient is contemplati ng this route and has been in long-term discussions with the Palliative Care Service regarding this o ption. In the emergency room, the patient underwent general evaluation showing elevated BNP in the 6 000 range. Portable chest imaging showed bilateral pulmonary edema at which point patient received a total of 120 mg of IV Lasix. The patient also received transdermal nitroglycerin and 10 mg of [place] . PAST MEDICAL HISTORY: 1. Acute on chronic systolic congestive heart failure with ejection fraction of 20%-25%. 2. End-stage cirrhosis with ascites secondary to chronic hepatitis C. 3. Hypertension. 4. Polysubstance abuse including cocaine, marijuana, and tobacco. 5. Bipolar 1 disorder. 6. Anxiety/depression. 7. Health care associated bacterial pneumonia on 08/13/2017. 8. Diabetes mellitus type 2. 9. History of noncompliance. 10. Chronic normocytic anemia. PAST SURGICAL HISTORY: 1. Status post left inguinal hernia repair. 2. Status post cholecystectomy. 3. Status post incision and drainage of perirectal abscess. 4. Status post left arm abscess. 5. Status post abdominal paracentesis. CURRENT MEDICATIONS: 1. Allopurinol 100 mg p.o. daily. 2. Xanax 2 mg p.o. b.i.d. 3. Enteric coated aspirin 81 mg 1 tab p.o. daily. 4. Coreg 12.5 mg p.o. b.i.d. 5. Clonidine 0.2 mg p.o. daily. 6. Vitamin B12 1000 mcg p.o. daily. 7. Ferrous sulfate 325 mg p.o. q.a.m. 8. Folic acid 1 mg p.o. daily. 9. Lasix 80 mg p.o. b.i.d. 10. [place] 10/325 mg 1-2 tabs p.o. t.i.d. p.r.n. pain. 11. Lactulose 20 grams p.o. daily. 12. Lisinopril 5 mg 1 tablet p.o. daily. 13. Zaroxolyn 5 mg 1 tablet p.o. daily. 14. Multivitamin 1 tab p.o. daily. 15. Aldactone 25 mg 1 tab p.o. daily. ALLERGIES: IBUPROFEN, FENTANYL, KETOROLAC. FAMILY HISTORY: No inheritable diseases per patient report. SOCIAL HISTORY: The patient lives in the [facility]. Admits to the use of cocaine, marijuana , and tobacco products. Occasional alcohol use. REVIEW OF SYSTEMS: The following complete review of systems was negative, unless otherwise mentioned in the HPI or below: Constitutional: Weight loss or gain, ability to conduct usual activities. Skin: Rash, itching. Eyes: Double vision, pain. ENT/Mouth: Nose bleeding, neck stiffness, pain, tenderness. Cardiovascular: Palpitations, dyspnea on exertion, orthopnea. Respiratory: Shortness of breath, wheezing, cough, hemoptysis, fever or night sweats. Gastrointestinal: Poor appetite, abdominal pain, heartburn, nausea, vomiting, constipation, or diarr hea. Genitourinary: Urgency, frequency, dysuria, nocturia. Musculoskeletal: Pain, swelling. Neurologic/Psychiatric: Anxiety, depression. Allergy/Immunologic: Skin rash, bleeding tendency. Otherwise negative except as stated per HPI. PHYSICAL EXAMINATION: VITAL SIGNS: In the emergency room showed blood pressure 169/118, pulse 103, respiratory rate 26, te mperature 98 degrees Fahrenheit, O2 saturation 95% on room air. GENERAL APPEARANCE: This is a 46-year-old -[place] male, alert and responsive, in mild to mo derate respiratory distress. HEENT: Pupils are equal, round, and reactive to light and accommodation. Extraocular muscles are in tact. No scleral icterus, no conjunctival injection. Nares patent. OP is clear. NECK: Supple, no cervical adenopathy and no thyromegaly. Mild JVD noted bilaterally. Cervical spin e with full active and passive range of motion. CHEST: Bibasilar crackles with diminished breath sounds. CARDIOVASCULAR: S1 and S2 with tachycardia. ABDOMEN: Protuberant with mild tenderness to palpation diffusely. No palpable mass. No rebound or guarding noted. EXTREMITIES: Warm and dry with fair turgor. Pitting edema to the proximal shins bilaterally. Pulse s palpable distally at the dorsalis pedis, posterior tibial, and popliteal arteries bilaterally. Cap illary refill less than 2 seconds. NEUROLOGIC: Cranial nerves II-XII are grossly intact. No focal or lateralizing signs appreciated. PERTINENT LABORATORY DATA AND X-RAY FINDINGS: Sodium 135, potassium 3.9, chloride 105, CO2 of 26, BU N 26, creatinine 1.74 with estimated GFR of 51. Glucose 368. Lactic acid level 1.6, calcium 8.0. A ST 75, ALT 43, alkaline phosphatase 396, troponin I ranged between 0.136-0.201. BNP 6219, previously noted 3576 on 08/13/2017, albumin 2.1. CBC showed white blood cell count 7.3, hemoglobin 10, hemato crit 29, MCV 95, platelet count 175. D-dimer 3.10. Portable chest x-ray dated 08/23/2017 showed ext ensive new interstitial and alveolar opacities in the perihilar regions consistent with pulmonary elliot ma. A 12-lead EKG dated 08/22/2017 by my interpretation shows sinus tachycardia with heart rates in the low 100s. Left atrial enlargement noted. No acute ST-T wave changes appreciated. ASSESSMENT AND PLAN: 1. Acute on chronic systolic congestive heart failure with ejection fraction of 20%-25%. The patien t will be admitted to the telemetry unit. We will continue Lasix 40 mg IV q.12 hours. Continue Zaro xolyn 5 mg p.o. daily. Continue to monitor daily weight and I's and O's. Suspect end-stage process given patient's repetitive admissions for similar presentation. 2. Acute dyspnea secondarily to #1. Will continue oxygen supplementation to maintain O2 saturations greater than or equal to 90%. See management options as outlined in #1. 3. Status post healthcare-associated pneumonia. No current evidence to suggest acute infectious pro cess. Hold antibiotic therapy and provide supportive management. Suspect patient's main issue relat ed to volume overload in the context of cardiomyopathy with ejection fraction in the 20%-25% range. 4. Chronic kidney disease stage 2. Avoid nephrotoxic agents and contrast media. Follow renal funct ion in the context of diuretic therapy. 5. Hypertension, uncontrolled. Resume home antihypertensive regimen after confirmation of dosing. We will provide clonidine and hydralazine p.r.n. systolic greater than or equal to 170. 6. End-stage liver disease. We will continue home lactulose dosing and monitor clinically. 7. Diabetes mellitus type 2. We will continue home insulin regimen with insulin sliding scale for r eflexive coverage. ADA diet. Accu-Cheks a.c. and at bedtime. 8. Polysubstance abuse. Continue supportive management. Case management for cessation options. 9. Elevated troponin I. No current evidence to suggest acute coronary syndrome. 10. Demand ischemic state in the context of known cardiomyopathy. No intervention recommended. 11. Prophylaxis. Sequential compression devices while in bed. Pepcid 20 mg p.o. b.i.d. 12. Code status is DO NOT RESUSCITATE and DO NOT INTUBATE. Consult Palliative Care Service. The chanel dash likely is a hospice candidate and we will coordinate with palliative Care Service prior to disc harge. Surrogate medical decision maker is patient's uncle.
[2017-08-23] MEDS: Furosemide 40 MG/4 ML VIAL SLOW IVP SCH (16:15)
[2017-08-23] MEDS ORDERED: Insulin Detemir 100 UNITS/ML 30 UNITS in Pre-Filled Syringe SC SCH (21:00)
[2017-08-23] MEDS: Famotidine 20 MG TAB PO SCH ×2 (21:55→21:59)
[2017-08-24] MEDS: Morphine 5 mg/5 ml in 0.9% NaCl/PF SYRINGE SLOW IVP PRN ×3 (01:55→10:00)
[2017-08-24] MEDS: Furosemide 40 MG/4 ML VIAL SLOW IVP SCH (05:19)
[2017-08-24 05:37] LABS: ALT (SGPT) 42 U/L (8-55); AST (SGOT) 72 U/L (5-34); Albumin 1.9 g/dL (3.5-5.0); Alkaline Phosphatase 315 U/L (40-150); Anion Gap 9 mmol/L (10-20); BUN (Urea Nitrogen) 27 mg/dL (8.9-20.6); Bilirubin, Total 0.9 mg/dL (0.2-1.2); Calc. Creatinine Clearance 65 mL/min (70-130); Calcium 8.2 mg/dL (7.8-10.44); Carbon Dioxide 25 mmol/L (22-29); Chloride 107 mmol/L (98-107); Estimated GFR-MDRD 61; Globulin 5.1 g/dL (2.4-3.5); Glucose 83 mg/dL (70-105); Potassium 4.1 mmol/L (3.5-5.1); Sodium 137 mmol/L (136-145)
[2017-08-24 06:03] LABS: Eosinophils 1 % (0-10); Hemoglobin 9.9 g/dL (14.0-18.0); Lymphocytes 33 % (21-51); MDiff Complete? YES; Mean Corpuscular HGB CONC 33.1 g/dL (32.0-36.0); Mean Corpuscular Hemoglobin 31.4 pg (27.0-31.0); Mean Corpuscular Volume 94.8 fl (80.0-94.0); Mean Platelet Volume 8.7 fL (7.4-10.4); Monocytes 6 % (0-10); Neutrophil 60 % (42-75); Platelet Count 193 thou/uL (130-400); RBC Distribution Width 14.3 % (11.5-14.5); Red Blood Cell (RBC) Count 3.16 mill/uL (4.70-6.10); White Blood Cell (WBC) Count 8.7 thou/uL (4.8-10.8)
[2017-08-24 08:23] VITALS: TEMP 96.7
[2017-08-24] MEDS ORDERED: Carvedilol 6.25 MG TAB PO SCH ×2 (09:00→17:00)
[2017-08-24] MEDS ORDERED: risperiDONE 1 MG TAB PO SCH (09:00)
[2017-08-24] MEDS ORDERED: Spironolactone 25 MG TAB PO SCH (09:00)
[2017-08-24] MEDS ORDERED: cloNIDine 0.2 MG TAB PO SCH (09:00)
[2017-08-24] MEDS: Famotidine 20 MG TAB PO SCH (09:42)
[2017-08-24 09:44] VITALS: BP 173/123
--- NOTE | 2017-08-24 11:55 | DIS ---
DATE OF ADMISSION: 08/23/2017 DATE OF DISCHARGE: 08/24/2017 DISCHARGE DIAGNOSES: 1. Acute on chronic systolic congestive heart failure with ejection fraction of 20% to 25%. 2. Medical noncompliance. 3. Acute dyspnea secondary to #1, improved. 4. Status post healthcare-associated pneumonia, resolving. 5. Chronic kidney disease stage 2. 6. Hypertension, uncontrolled. 7. End-stage liver disease. 8. Diabetes mellitus type 2, labile. 9. Polysubstance abuse, ongoing. 10. Elevated troponin I secondarily to cardiomyopathy. 11. Chronic macrocytic anemia, stable. CONSULTATION: Palliative Care Service. PERTINENT LAB AND X-RAY FINDINGS: Creatinine ranged between 1.49-1.74, estimated GFR ranging between 51-61. AST 72, ALT of 42, alkaline phosphatase 315. CBC showed hemoglobin of 9.9, hematocrit 30, M CV 95. D-dimer 3.10. Portable chest x-ray dated 08/23/2017 showed extensive interstitial alveolar o pacities consistent with pulmonary edema. HOSPITAL COURSE: The patient was admitted to the telemetry unit after initially presenting with acut e dyspnea in the context of bilateral pulmonary edema with acute on chronic systolic congestive heart failure exacerbation. The patient was given IV Lasix and Zaroxolyn, and overall clinically improved with diuretic therapy. The patient was given oxygen supplementation initially, transitioning to rose marie m air without difficulty. During the patient's hospital course, the patient was apparently dispensed [place] and was attempting to sell the medication during his hospital course. The on-call physician nini han notified at which the patient was removed from the [place] prescription and given IV pain control. The patient was evaluated by the Palliative Care Service for consideration of hospice on discharge. The patient apparently will proceed with [facility] on discharge. Overall, th e patient clinically stable and ready for discharge on 08/24/2017. DISCHARGE MEDICATIONS: 1. Allopurinol 100 mg 1 tab p.o. daily. 2. Xanax 2 mg 1 tab p.o. b.i.d. 3. Aspirin 81 mg 1 tab p.o. daily. 4. Coreg 12.5 mg p.o. b.i.d. 5. Clonidine 0.2 mg p.o. daily. 6. Vitamin B12 1000 mcg p.o. daily. 7. Feosol 325 mg p.o. daily. 8. Folic acid 1 mg p.o. daily. 9. Lasix 80 mg p.o. b.i.d. 10. Levemir 40 units subcutaneously at bedtime. 11. Lactulose 20 grams p.o. daily. 12. Lisinopril 5 mg 1 tablet p.o. daily. 13. Zaroxolyn 5 mg 1 tab p.o. daily. 14. Multivitamin 1 tab p.o. daily. 15. Omeprazole 20 mg p.o. daily. 16. K-Dur 20 mEq one tab p.o. daily. 17. Risperdal 0.5 mg p.o. daily. 18. Aldactone 25 mg 1 tab p.o. daily. FOLLOWUP: The patient may follow up with [facility] on discharge. The patient may als o follow up with [facility] on discharge. CONDITION ON DISCHARGE: Guarded. ACTIVITY: ad amena. DIET: ADA and heart healthy. CODE STATUS: Do not resuscitate. DISPOSITION: Home with [facility] on 08/24/2017. Total time preparing and coordinating discharge is 31 minutes.
== END 2017-08-24 12:24 | disposition hospice, home (50) | DRG 291 ==
LOC: ERS 01:57 → ERHOLD 05:35 → 2NO 15:37
PROVIDERS: ADMIT Family Medicine; ATTEND Family Medicine
DX: I13.0 Hypertensive heart and chronic kidney disease with heart failure and stage 1 through stage 4 chronic kidney disease, or unspecified chronic kidney disease (principal); I50.23 Acute on chronic systolic (congestive) heart failure; J18.9 Pneumonia, unspecified organism; E11.22 Type 2 diabetes mellitus with diabetic chronic kidney disease; I24.8 Other forms of acute ischemic heart disease; N18.2 Chronic kidney disease, stage 2 (mild); F19.10 Other psychoactive substance abuse, uncomplicated; I42.9 Cardiomyopathy, unspecified; Z66 Do not resuscitate; Z91.19 Patient's noncompliance with other medical treatment and regimen; D53.9 Nutritional anemia, unspecified; Y95 Nosocomial condition; Z51.5 Encounter for palliative care; F31.9 Bipolar disorder, unspecified; Z79.82 Long term (current) use of aspirin; Z79.4 Long term (current) use of insulin; K74.60 Unspecified cirrhosis of liver; B18.2 Chronic viral hepatitis C
CPT/HCPCS: 36415; 36416; 71046; 80053; 82553; 83605; 83880; 84484; 85007; 85025; 85027; 85379; 93005; 94640; 96372; 96374; 96375; 96376; 99406; J1815; J1940; J2060; J2270; J7611; J7620; S0028

== ENCOUNTER 2017-12-21 04:21 | Inpatient (IN) | payer OTHER ==
[2017-12-21] MEDS ORDERED: Nitroglycerin 2% Ointment 1 INCH/1 GM Packet ONE (04:51)
[2017-12-21] MEDS ORDERED: HYDROcodone/Acetaminophen 5/325 mg Tablet ONE (05:15)
[2017-12-21] MEDS ORDERED: Furosemide 40 MG/4 ML VIAL ONE (05:15)
[2017-12-21 05:24] LABS: INR-International Normal Ratio 1.3; Prothrombin Time 16.7 SEC (12.0-14.7)
[2017-12-21 05:28] LABS: #Basophils 0.2 thou/uL (0.0-0.2); #Eosinphils 0.2 thou/uL (0.0-0.7); #Lymphocytes 2.7 thou/uL (1.20-3.40); #Monocytes 0.7 thou/uL (0.11-0.59); #Neutrophils 5.1 thou/uL (1.40-6.50); %Basophils 1.9 % (0.0-1.0); %Eosinophils 2.5 % (0.0-10.0); %Lymphocytes 30.4 % (21.0-51.0); %Monocytes 7.7 % (0.0-10.0); %Neutrophils 57.6 % (42.0-75.0); Hemoglobin 10.4 g/dL (14.0-18.0); Mean Corpuscular HGB CONC 33.2 g/dL (32.0-36.0); Mean Corpuscular Hemoglobin 30.8 pg (27.0-31.0); Mean Corpuscular Volume 92.6 fl (80.0-94.0); Platelet Count 193 thou/uL (130-400); RBC Distribution Width 14.7 % (11.5-14.5); Red Blood Cell (RBC) Count 3.39 mill/uL (4.70-6.10); White Blood Cell (WBC) Count 8.9 thou/uL (4.8-10.8)
[2017-12-21 05:43] LABS: ALT (SGPT) 32 U/L (8-55); AST (SGOT) 67 U/L (5-34); Alkaline Phosphatase 378 U/L (40-150); Anion Gap 11 mmol/L (10-20); BUN (Urea Nitrogen) 32 mg/dL (8.9-20.6); Bilirubin, Total 0.6 mg/dL (0.2-1.2); Calc. Creatinine Clearance 0 mL/min (70-130); Calcium 7.6 mg/dL (7.8-10.44); Carbon Dioxide 20 mmol/L (22-29); Chloride 108 mmol/L (98-107); Estimated GFR-MDRD 45; Globulin 4.7 g/dL (2.4-3.5); Glucose 203 mg/dL (70-105); Potassium 4.8 mmol/L (3.5-5.1); Protein, Total 6.7 g/dL (6.0-8.3); Sodium 134 mmol/L (136-145)
[2017-12-21] MEDS ORDERED: Albuterol Sulfate 2.5 mg/3 ml Neb ONE (05:43)
[2017-12-21 05:47] LABS: CKMB 6.5 ng/mL (0-6.6); Troponin I 0.103 ng/mL (< 0.028)
[2017-12-21 05:55] LABS: Actual Bicarbonate (HCO3a) 22.8 mEq/L (22-26); Base Excess (BEa) -1.8 mEq/L (0 (+/-) 2.5); CO2 Tension 37.7 mmHg (35.0-45.0); Hemoglobin (Hb) 9.7 g/dL (14.0-18.0); O2 Tension (PaO2) 149.2 mmHg (80.0-100.0)
[2017-12-21 05:56] LABS: Analyzer IN Cardio ER; Calcium, Ionized 1.2 mmol/L (1.12-1.30); Puncture Site RRA
[2017-12-21] MEDS ORDERED: cefTRIAXone\\ROCEPHIN 2 GM VIAL ONE (05:58)
[2017-12-21] MEDS ORDERED: Sodium Chloride 0.9% 0 ML ONE (05:58)
[2017-12-21] MEDS ORDERED: Ondansetron ODT 4 MG TAB ONE (06:05)
[2017-12-21] MEDS ORDERED: Morphine 4 MG/ML VIAL ONE ×2 (06:05→06:08)
[2017-12-21] MEDS ORDERED: Ondansetron ODT 8 MG TAB ONE (06:08)
[2017-12-21] MEDS ORDERED: Azithromycin 500 MG VIAL ONE (06:27)
[2017-12-21 06:28] LABS: Bilirubin Negative (Negative); Blood, Urine Moderate (Negative); Clarity CLEAR (Clear); Glucose, Urine (Dipstick) Negative (Negative); Leukocyte Negative (Negative); Nitrite Negative (Negative); Protein, Urine (Dipstick) 100 mg/dL (Neg-Trace); Specific Gravity, Urine 1.009 (1.002-1.036); Urobilinogen 0.2 mg/dL (0.2-1.0); pH, Urine 6.5 (5.0-9.0)
[2017-12-21 06:30] LABS: Bacteria/HPF None Seen HPF (None Seen); Hyaline Casts/LPF 0-3 HYALINE CAST LPF (0-3 Hyaline); Pathc Cast-AUWi Flag 0.29 (0-2.49); Squamous Epithelial None Seen HPF (0-3); WBC/HPF 0-3 HPF (0-3)
--- NOTE | 2017-12-21 06:32 | PDOC.FPRHP ---
- History of Present Illness Chief Complaint: SOB, ABD pain, Abdominal distention, fever History of Present Illness: PCP:[facility], No PCP 46 yo M w/ PMH of cirrhosis 2/2 hep c alcohol abuse, CHF (EF20-25%), non- ischemic cardiomyopathy, HTN, substance abuse, alcohol abuse, CKD2, esophageal varices presents for cc of increasing sob over last 24 hours. Pt reports dyspnea at rest and GALVAN. He also notes increase in abdominal distension over same time period with associated abdominal tenderness and subjective fever. He denies headache, nvdc, cp, cough/congestion. He does admit to alcohol use on this past weekend. Denies drug use. Current 1/2 ppd smoker. Pt was previously on hospice care 2/2 long h/o noncompliance and end stage of his medical disease with continued use of alcohol. He decided he no longer wanted to be on hospice care and withdrew. He does not have a primary care doctor. He has not had any medications in over one month. ED Course: Rocephin, azithromycin, duonebs, morphine, Nitro pathc, Lasix - Allergies/Adverse Reactions Allergies Allergy/AdvReac Type Severity Reaction Status Date / Time ibuprofen [From Motrin] Allergy Intermediate Short of Verified 11/27/15 17:55 Breath fentanyl Allergy Verified 11/27/15 17:55 ketorolac tromethamine Allergy Short of Verified 11/27/15 17:55 [From Toradol] Breath NSAIDS (Non-Steroidal Allergy Short of Verified 11/27/15 17:55 Anti-Inflamma Breath tramadol HCl [From Ultram] Allergy Short of Verified 11/27/15 17:55 Breath - Home Medications Medication Instructions Recorded Confirmed Type Folic Acid [Folvite] 1 mg PO DAILY #30 tab 11/09/16 08/24/17 Rx risperiDONE [RisperDAL] 0.5 mg PO DAILY #30 tab 11/09/16 08/24/17 Rx Omeprazole Magnesium [Prilosec] 20 mg PO DAILY 11/14/16 08/24/17 History Acetaminophen W/ Codeine 1 tab PO Q6H PRN #0 tab 02/17/17 08/24/17 Rx [Acetaminophen/Codeine #3] Furosemide [Lasix] 80 mg PO 0900,1400 #30 tab 02/17/17 08/24/17 Rx Insulin Detemir 100 UNITS/ML 40 units SC HS #2 vial 02/17/17 08/24/17 Rx [Levemir] Lactulose 10 GM/15ML Oral Junie 20 gm PO DAILY #450 ml 02/17/17 08/24/17 Rx [Lactulose] Potassium Chloride [K-Dur] 20 meq PO DAILY #15 tab 02/17/17 08/24/17 Rx cloNIDine [Catapres] 0.2 mg PO DAILY #15 tab 02/17/17 08/24/17 Rx ALPRAZolam [Xanax] 2 mg PO BID 08/13/17 08/24/17 History HYDROcodone/Acetaminophen [Mercedes 1 - 2 tab PO TID PRN 08/13/17 08/24/17 History 10-325 Tablet] Allopurinol [Zyloprim] 100 mg PO DAILY #30 tablet 08/16/17 08/24/17 Rx Aspirin [Aspirin Chewable Tablet] 81 mg PO DAILY #30 tab 08/16/17 08/24/17 Rx Cyanocobalamin (Vitamin B-12) 1,000 mcg PO DAILY #30 tab 08/16/17 08/24/17 Rx [Vitamin B-12] Ferrous Sulfate [Feosol] 325 mg PO QAM-WM #30 tab 08/16/17 08/24/17 Rx Lisinopril [Zestril] 5 mg PO DAILY #30 tab 08/16/17 08/24/17 Rx Metolazone [Zaroxolyn] 5 mg PO 0830 PRN #30 tab 08/16/17 08/24/17 Rx Multivitamin W/ Minerals 1 tab PO DAILY #30 tab 08/16/17 08/24/17 Rx [Theragran M] Spironolactone [Aldactone] 25 mg PO DAILY #30 tab 08/16/17 08/24/17 Rx Carvedilol [Coreg] 12.5 mg PO BID-WM tab 08/24/17 Rx - History PMHx: Cirhhosis, Acute on chronic HFrEF, substance abuse, alcohol abuse, medication noncompliance, hypoxia, CKD 2 PSHx: Appendix FHx:NA Social:1/2 ppd X 30 years, current alcohol use, denies drug use - Review of Systems ROS unobtainable: other (SOB w/ air hunger) General: reports: fever/chills, fatigue. denies: night sweats Eyes: denies: eye pain, vision changes ENT: reports: other (bloody nose). denies: nasal congestion, rhinorrhea Respiratory: reports: shortness of breath, exercise intolerance. denies: cough , congestion Cardiovascular: reports: edema, orthopnea. denies: chest pain, palpitation Gastrointestinal: reports: abdominal pain, GI bleeding (chronic, sporadic). denies: nausea, vomiting, diarrhea, constipation Genitourinary: reports: other (Dark urine). denies: incontinence, dysuria, discharge Skin: reports: jaundice. denies: rashes, lesions Musculoskeletal: reports: pain, swelling, arthritis/arthralgias Neurological: reports: weakness. denies: numbness, syncope - Vital signs BP: 161/114 HR: 108 RR: 28 Tmax: 99 Pox: 88% on RA Wt: 84Kg - Physical Exam Constitutional: awake, alert and oriented, other (Moderately distressed) HEENT: normocephalic and atraumatic, PERRLA, EOMI, grossly normal vision, grossly normal hearing, normal nasal mucosa, MMM, oropharynx clear, other ( conjunctival icterus) Neck: supple, FROM, trachea midline, no LAD, no JVD, no thyromegaly Chest: no-tender to palpation Heart: RRR, normal S1/S2, no murmurs/rubs/gallops, pulses present, no edema Lungs: other (mild respiratory distress, diffuse wheezing and rales) Abdomen: soft, other (diffusely ttp, distended) Musculoskeletal: normal structure Neurological: no focal deficit Skin: no rash/lesions, capillary refill <2 seconds Heme/Lymphatic: no purpura, no petechia, no LAD Psychiatric: other (poor insight) FMR H&P: Results - Labs Result Diagrams: 12/21/17 05:05 12/21/17 05:05 Lab results: WBC 8.9 thou/uL (4.8-10.8) 12/21/17 05:05 Hgb 10.4 g/dL (14.0-18.0) L 12/21/17 05:05 Hct 31.4 % (42.0-52.0) L 12/21/17 05:05 MCV 92.6 fl (80.0-94.0) 12/21/17 05:05 Plt Count 193 thou/uL (130-400) 12/21/17 05:05 Neutrophils % 57.6 % (42.0-75.0) 12/21/17 05:05 ABG pH 7.40 (7.35-7.45) 12/21/17 05:54 ABG pCO2 37.7 mmHg (35.0-45.0) 12/21/17 05:54 ABG pO2 149.2 mmHg (80.0-100.0) H 12/21/17 05:54 Sodium 134 mmol/L (136-145) L 12/21/17 05:05 Potassium 4.8 mmol/L (3.5-5.1) 12/21/17 05:05 Chloride 108 mmol/L (98-107) H 12/21/17 05:05 Carbon Dioxide 20 mmol/L (22-29) L 12/21/17 05:05 BUN 32 mg/dL (8.9-20.6) H 12/21/17 05:05 Creatinine 1.94 mg/dL (0.6-1.3) H 12/21/17 05:05 Glucose 203 mg/dL (70-105) H 12/21/17 05:05 Lactic Acid 1.5 mmol/L (0.5-2.2) 12/21/17 05:48 Calcium 7.6 mg/dL (7.8-10.44) L 12/21/17 05:05 Total Bilirubin 0.6 mg/dL (0.2-1.2) 12/21/17 05:05 AST 67 U/L (5-34) H 12/21/17 05:05 ALT 32 U/L (8-55) 12/21/17 05:05 Alkaline Phosphatase 378 U/L (40-150) H 12/21/17 05:05 CK-MB (CK-2) 6.5 ng/mL (0-6.6) 12/21/17 05:05 Serum Total Protein 6.7 g/dL (6.0-8.3) 12/21/17 05:05 Albumin 2.0 g/dL (3.5-5.0) L 12/21/17 05:05 - Radiology Interpretation Chest x-ray Status: report reviewed by me (findings consistent with CHF) FMR H&P: A/P - Problem List (1) Acute on chronic systolic heart failure Current Visit: No Status: Acute Code(s): I50.23 - ACUTE ON CHRONIC SYSTOLIC (CONGESTIVE) HEART FAILURE (2) Cirrhosis of liver with ascites Current Visit: No Status: Chronic Code(s): K74.60 - UNSPECIFIED CIRRHOSIS OF LIVER (3) Abdominal pain Current Visit: No Status: Acute Code(s): R10.9 - UNSPECIFIED ABDOMINAL PAIN Qualifiers: Abdominal location: generalized Qualified Code(s): R10.84 - Generalized abdominal pain (4) HTN (hypertension) Current Visit: No Status: Chronic Code(s): I10 - ESSENTIAL (PRIMARY) HYPERTENSION (5) Non-ischemic cardiomyopathy Current Visit: No Status: Chronic Code(s): I42.8 - OTHER CARDIOMYOPATHIES (6) Noncompliance Current Visit: No Status: Chronic Code(s): Z91.19 - PATIENT'S NONCOMPLIANCE W OTH MEDICAL TREATMENT AND REGIMEN (7) Normocytic anemia Current Visit: No Status: Chronic Code(s): D64.9 - ANEMIA, UNSPECIFIED - Plan 1) Acute on Chronic HFrEF. CXR shows evidence of increased pulm edema with associated SOB and Bnp 6000. Will treat with IV lasix 40BID, cotn home aldactone and metolazone. Cont lisinopril, hold coreg, trend BMP 2) Cirrhosis with ascites; cosnult IR to obtain fluid and run cultures for concern of SBP. Received 2 gram IV rocephin. Cont rocephin 1 gram qd. 3)ABD pain: concern for SBP, IR to obtain paracentesis fluid. No white count but clinically concerning. Cover empirically and await cultures and fluid analysis. 4)HTN: Lisinopril and diuresis. Monitor pressures, likely 2/2 volume overload. 5) Non-ischemic cardiomyopathy: likely 2/2 substance abuse and alcohol abuse, causing worsening HFrEF 6) Noncompliance: paliative consulted appreciate recommendations 7)Normocytic anemia, stable. Trend 8) PPX: SCDs and nexium for DVT and GI ppx 9) Code status: Spoke with pt and he wishes to be DNR. Disposition/LOS: guarded, >/=2days FMR H&P: Upper Level - Pertinent history 46 yo AAM with PMHx end-stage liver disease 2/2 chronic Hep C, HFrEF (EF 20-25%) , and recently rescinded hospice care presented to ED for shortness of breath, abdominal pain, and BLE edema. SOB has been worsening over last 24 hours including present at rest. He endorses chronic worsening GALVAN over last month since coming off hospice care. Abdominal pain is fairly severe although denies N /V/D. Does endorse occasional blood in stools. He states came off hospice because tired of being reminded Im dying. He also endorses not understanding why he has gotten worse in the last month. When discussing goals of care, he wants to be comfortable and live as long as possible by whatever means necessary. However, he also states not wanting to come to the hospital very often. He wants to be DNR. Refused lab draws in the ED. - Pertinent findings Gen: NAD, well developed, mild-moderate distress at times 2/2 pain CV: RRR, no m/r/g Lungs: tachypneic, no rales/rhonchi, diffuse expiratory wheezing, transmitted upper airway noise Abd: distended but soft, diffusely TTP with rebound, difficult exam 2/2 pain Ext: 2+-3+ pitting BLE edema Psych: agitated at times; otherwise calm; falls asleep on occasion during interview - Plan Date/Time: 12/21/17 0630 1. Acute hypoxic respiratory failure. O2 sat 88% on RA with tachypnea. O2 improved with 4L oxygen but tachypnea still present. ABG shows appropriate oxygenation on oxygen supplement. Increased pulmonary congestion likely 2/2 untreated ESLD and ischemic cardiomyopathy. Admitting to IMCU for close monitoring with consideration for bipap treatment to improve pulmonary congestion. Consider morphine for air hunger. Heavy diuretics. Expect 2 day stay. 2. SBP, suspected. With diffuse abdominal pain and fever with hx ESLD, concern for SBP. Pt was apparently refusing blood draws in ED so was given rocephin as felt would not agree to diagnostic paracentesis. After further discussion, pt agreed to paracentesis and other blood draws. U/S used by resident but unable to find pocket large enough without bowel near wall to do bedside tap. Consulting IR for tap this AM. Will cover with rocephin until results available. BCx. 3. ESLD. Restart Lasix and spironolactone. Check ammonia and start lactulose if needed. Does not appear to have enough cirrhosis to require therapeutic paracentesis. Pt has been on hospice but not currently wanting hospice. Appears to have misconceptions that can be addressed during hospitalization. Will consult palliative care. 4. HFrEF. Last EF 20-25%. CHF worsening ESLD sequelae. Continue diuretics and restart home meds except beta hina. Discussion with patient about further goals of care prior to further evaluation of heart function. 5. Alcohol abuse. Drank this weekend. ASE protocol. Monitor. 6. DM2. Restart insulin and monitor BG. I, Lucio Fountain, have evaluated this patient and agree with findings/plan as outlined by internal controls analyst resident. Pertinent changes/additions are listed here.
--- NOTE | 2017-12-21 07:32 | RAD ---
SINGLE VIEW CHEST: Date: 12/21/17 COMPARISON: 08/13/17. HISTORY: Dyspnea. FINDINGS: The chest shows an enlarged cardiomediastinal silhouette. The pulmonary vasculature is enlarged. Ther e is extension of opacities from the parahilar regions into the lungs, which may represent pulmonary edema. No pleural effusion seen. IMPRESSION: Findings are evident for congestive heart failure. POS: [facility]
[2017-12-21] MEDS ORDERED: Metolazone 5 MG TAB PO PRN (08:55)
[2017-12-21] MEDS ORDERED: Acetaminophen 325 MG TAB PO PRN (08:55)
[2017-12-21] MEDS ORDERED: Dextrose 50% Abboject 50 ML SYRINGE SLOW IVP PRN (08:55)
[2017-12-21] MEDS ORDERED: Ondansetron HCl/PF 4 MG/2 ML Vial IVP PRN (08:55)
[2017-12-21] MEDS ORDERED: Dextrose 5% in Water 1,000 ML IV PRN (08:55)
[2017-12-21] MEDS ORDERED: HumaLOG 300 UNITS/3 ML VIAL SC PRN (08:55)
[2017-12-21] MEDS ORDERED: cloNIDine 0.2 MG TAB PO SCH (09:00)
[2017-12-21] MEDS: Lisinopril 5 MG TAB PO SCH (10:45)
[2017-12-21] MEDS: risperiDONE 0.25 MG TAB PO SCH ×2 (10:45→10:51)
[2017-12-21] MEDS: Allopurinol 100 MG TAB PO SCH (10:45)
[2017-12-21] MEDS: Multivitamin W/ Minerals 1 TAB PO SCH (10:45)
[2017-12-21] MEDS: Potassium Chloride 20 MEQ TAB PO SCH (10:45)
[2017-12-21] MEDS: Spironolactone 25 MG TAB PO SCH (10:45)
[2017-12-21] MEDS: Folic Acid 1 MG TAB PO SCH ×2 (10:45→10:52)
[2017-12-21] MEDS: Carvedilol 6.25 MG TAB PO SCH ×2 (10:46→16:04)
[2017-12-21 11:51] LABS: Troponin I 0.104 ng/mL (< 0.028)
[2017-12-21] MEDS ORDERED: Morphine 4 MG/ML Carpuject SLOW IVP ONE (13:18)
[2017-12-21] MEDS ORDERED: SODIUM CHLORIDE 0.9% IV SCH (13:30)
[2017-12-21] MEDS ORDERED: MORPHINE IV SCH (13:30)
--- NOTE | 2017-12-21 13:32 | ULT ---
LIMITED ABDOMINAL ULTRASOUND: Date: 12/21/17 HISTORY: Patient with ascites and concern for spontaneous bacterial peritonitis. Paracentesis was requested. FINDINGS: Limited sonographic evaluation of the abdomen was performed with images obtained in the bilateral upp er and lower quadrants, as well as in the midline. There is a very small amount of intraperitoneal fr ee fluid seen within the abdomen, predominantly in the right upper quadrant. IMPRESSION: Very small amount of ascites. Patient refused paracentesis at this time. POS: [facility]
[2017-12-21 13:39] VITALS: BMI 31.4
[2017-12-21] MEDS ORDERED: RisperDAL Oral Solution 1 MG/ML UDCUP PO SCH (14:30)
[2017-12-21] MEDS: Furosemide 40 MG/4 ML VIAL SLOW IVP SCH (16:05)
[2017-12-21] MEDS: risperiDONE 1 MG TAB PO SCH (21:56)
--- NOTE | 2017-12-22 01:07 | PDOC.EVN ---
Event Note - Event Note Event Note: I was called to pts bedside by nurse caring for pt because the pt wished to speak with a physician. On arrival to the room the pt was wheeling his chair out of the room with a cigarette and ground wirer present on the chair and stated he was going to smoke. When the nurse told the pt the physician was present to speak with him he wheeled the chair back in the room, sat on the bedside and began breathing more heavily. He stated he needed something for pain. He stated he was previously on morphine and was asking for morphine earlier in the night; however, when asking him what he was given for pain control on his previous hospitalization he said he was given [place] because it is "the only thing that works." He then stated that he does not like morphine because it makes him feel funny. It has been well documented that on the pts previous admission to the hospital he was attempting to sell his [place] from the hospital. He was in no acute distress when I first arrived and was ambulating w/o any evidence of SOB or increased work of breathing. He was told that he has Tylenol ordered as needed for pain, but he has refused. Per the nurse, the pt has left his room multiple times to smoke. He is showing no signs of any distress and appears to be malingering. He can receive tylenol as needed for pain, but there are no indications for opiate analgesics at this time.
[2017-12-22] MEDS: Furosemide 40 MG/4 ML VIAL SLOW IVP SCH (05:37)
[2017-12-22 05:39] LABS: #Basophils 0.2 thou/uL (0.0-0.2); #Eosinphils 0.2 thou/uL (0.0-0.7); #Lymphocytes 2.5 thou/uL (1.20-3.40); #Monocytes 0.7 thou/uL (0.11-0.59); #Neutrophils 4.3 thou/uL (1.40-6.50); %Basophils 2.1 % (0.0-1.0); %Eosinophils 2.9 % (0.0-10.0); %Lymphocytes 31.6 % (21.0-51.0); %Monocytes 8.9 % (0.0-10.0); %Neutrophils 54.6 % (42.0-75.0); Hemoglobin 9.8 g/dL (14.0-18.0); Mean Corpuscular HGB CONC 33.7 g/dL (32.0-36.0); Mean Corpuscular Hemoglobin 31.2 pg (27.0-31.0); Mean Corpuscular Volume 92.7 fl (80.0-94.0); Mean Platelet Volume 9.1 fL (7.4-10.4); Platelet Count 202 thou/uL (130-400); RBC Distribution Width 14.8 % (11.5-14.5); Red Blood Cell (RBC) Count 3.14 mill/uL (4.70-6.10); White Blood Cell (WBC) Count 7.9 thou/uL (4.8-10.8)
[2017-12-22] MEDS ORDERED: cefTRIAXone\\ROCEPHIN 1 GM in Sodium Chloride 0.9% 100 ML IVPB SCH ×2 (06:00→12:30)
[2017-12-22 06:02] LABS: ALT (SGPT) 30 U/L (8-55); AST (SGOT) 58 U/L (5-34); Albumin 1.8 g/dL (3.5-5.0); Alkaline Phosphatase 257 U/L (40-150); Anion Gap 9 mmol/L (10-20); BUN (Urea Nitrogen) 32 mg/dL (8.9-20.6); Bilirubin, Total 0.6 mg/dL (0.2-1.2); Calc. Creatinine Clearance 51 mL/min (70-130); Calcium 7.6 mg/dL (7.8-10.44); Carbon Dioxide 21 mmol/L (22-29); Chloride 109 mmol/L (98-107); Estimated GFR-MDRD 40; Globulin 4.3 g/dL (2.4-3.5); Glucose 198 mg/dL (70-105); Potassium 4.6 mmol/L (3.5-5.1); Protein, Total 6.1 g/dL (6.0-8.3); Sodium 134 mmol/L (136-145)
[2017-12-22] MEDS ORDERED: Sodium Bicarbonate 2.5 MEQ/5 ML VIAL ONE (07:37)
--- NOTE | 2017-12-22 07:50 | PDOC.FM ---
Addendum entered and electronically signed by Shan Strong MD 12/22/17 08:24 : closer review of MAR revealed metolazone was PRN. Switched to 5 mg daily Scheduled. if he is d/c today. Will schedule 3 times weekly. Original Note: - Subjective Subjective: CC: Multiple complaints HPI: Received multiple complaints from patient and nursing staff overnight. According to the patient, nursing staff has not been offering medications. He did admit that he is "out of my mind" sometimes but would never intentionally refuse medications. He also admitted to having his girlfriend push him in a wheelchair downstairs but states he never walked on his own. Per Dr. Maya's note and multiple notes from nursing staff, he was seen walking without difficulty breathing or pain. However, once he realized who Dr. Maya was he began to experience severe pain and SOB. The charge nurse informed the provider that that patient has a history of diverting and selling his narcotics, including cheeking his norco while in the hospital and selling it while in the hospital during a previous stay. Charge nurse also states he has been released by multiple hospice agencies for selling his pain medications. The patient claims that he was released from hospice due to an "unstable home environment." Today, I informed the patient that he appeared to be improving. I informed him that if he truly has as severe of abdominal pain as he claims, it is essential that he undergo paracentesis to better characterize the nature of his abdominal pain. I informed he that he would not receive pain medication if he continues to refuse his other medication and if his goals of care were strictly comfort measures, that he could go home with hospice. He informed me again that he was released by hospice due to an unstable home environment. Nursing stated his oxygen saturation was 95% on room air but she said she put him on oxygen to help calm him down prior to my examination. - Objective MAR Reviewed: Yes Vital Signs & Weight: Vital Signs (12 hours) Temp Pulse Resp BP Pulse Ox 12/22/17 02:17 94 18 94 L 12/21/17 19:43 98.7 F 86 20 139/90 92 L Weight Weight 86.137 kg Result Diagrams: 12/22/17 05:03 12/22/17 05:03 <Shan Strong - Last Filed: 12/22/17 07:40> - Objective Vital Signs & Weight: Vital Signs (12 hours) Temp Pulse Resp BP Pulse Ox 12/22/17 08:45 98.2 F 84 20 157/105 H 12/22/17 07:51 98 12/22/17 02:17 94 18 94 L Weight Weight 86.137 kg Result Diagrams: 12/22/17 05:03 12/22/17 05:03 <Abiola Griffiths - Last Filed: 12/22/17 10:27> Phys Exam - Physical Examination Constitutional: NAD HEENT: moist MMs, sclera anicteric Respiratory: no wheezing, no rales, no rhonchi, clear to auscultation bilateral Cardiovascular: RRR, no significant murmur Gastrointestinal: soft unchanged distention. Diffusely tender with rebound tenderness. Does not c/o abdominal pain w/ heel strike only leg/foot pain. Musculoskeletal: no edema Neurological: non-focal, moves all 4 limbs <Shan Strong - Last Filed: 12/22/17 07:40> Dx/Plan (1) Abdominal pain Code(s): R10.9 - UNSPECIFIED ABDOMINAL PAIN Status: Acute QualifierTitle: Abdominal location: generalized Qualified Code(s): R10.84 - Generalized abdominal pain Plan: Patient refused paracentesis yesterday and is scheduled to undergo today. - white count normal - inconsistent examination - history given from patient and staff conflicts - strong suspicion for malingering - plan for paracentesis today, will not give pain medication until he undergoes paracentesis. (2) Acute on chronic systolic heart failure Code(s): I50.23 - ACUTE ON CHRONIC SYSTOLIC (CONGESTIVE) HEART FAILURE Status : Acute Plan: lungs cleared. No long requires oxygen. - switched back to Lasix 80 mg BID. - increased metolazon to 10 mg daily. - based on examination, stable for d/c. (3) Cirrhosis of liver with ascites Code(s): K74.60 - UNSPECIFIED CIRRHOSIS OF LIVER Status: Chronic QualifierTitle: Hepatic cirrhosis type: unspecified hepatic cirrhosis Qualified Code(s): K74.60 - Unspecified cirrhosis of liver Plan: palliative care met with patient. attempting to arranged home hospice. Given his history he will likely lose coverage if he continues to divert his narcotics. (4) DM type 2 (diabetes mellitus, type 2) Status: Chronic QualifierTitle: Diabetes mellitus termite treater insulin use: with termite treater use Diabetes mellitus complication status: with kidney complications Diabetes mellitus complication detail: with chronic kidney disease Chronic kidney disease stage: stage 3 (moderate) Qualified Code(s): E11.22 - Type 2 diabetes mellitus with diabetic chronic kidney disease; N18.3 - Chronic kidney disease, stage 3 (moderate); N18.3 - Chronic kidney disease, stage 3 (moderate) ; Z79.4 - termite treater helper (current) use of insulin; Z79.4 - termite treater helper (current) use of insulin; Z79.4 - termite treater helper (current) use of insulin; Z79.4 - [facility] ( current) use of insulin Plan: has refused insulin in hospital. - appears to have decent control when he complies with insulin. - continue current medications. (5) Noncompliance Code(s): Z91.19 - PATIENT'S NONCOMPLIANCE W OTH MEDICAL TREATMENT AND REGIMEN Status: Chronic Plan: suspect malingering behavior. - will hold all narcotics at this time unless he agrees to full care plan. <Shan Strong - Last Filed: 12/22/17 07:40> Attending Addendum - Attending Addendum Date/Time: 12/22/17 1022 I personally evaluated the patient and discussed the management with Dr. Strong. I agree with the History, Examination, Assessment and Plan documented above with any addition or exceptions noted below- Patient lying in bed comfortably. Afebrile VSS. A/P: 1) CHF exacerbation- improved; weight down 2.2 kg; normal O2 sats on room air. Continue diurectics. 2) Abdominal pain- initially refuse paracentesis but did undergo diagnostic paracentesis today. Studies pending. Continue antibiotics for now. Continue to minimze/avoid opiates due to past diversion of meds. 3) Cirrhosis- appreciate assistance from palliative care; continue current meds. <Abiola Griffiths - Last Filed: 12/22/17 10:27>
[2017-12-22] MEDS ORDERED: Metolazone 5 MG TAB PO SCH (08:30)
--- NOTE | 2017-12-22 09:39 | ULT ---
ULTRASOUND GUIDED DIAGNOSTIC PARACENTESIS: INDICATION: Suspicion for spontaneous bacterial peritonitis. TECHNIQUE: Informed consent was obtained. Preprocedure ultrasound was performed identifying the largest drainab le collection in the peritoneal cavity as being in the left lower quadrant. A site over the left low er quadrant was prepped and draped in the usual sterile fashion. Buffered 1% Lidocaine was administe red to the overlying abdominal musculature and peritoneal lining. A 20-gauge spinal needle was guide d down into the largest collection. 20 cc of peritoneal fluid was removed. The patient tolerated th e sampling without difficulty. IMPRESSION: Successful ultrasound-guided diagnostic paracentesis removal of 20 cc of ascitic fluid. POS: [facility]
[2017-12-22] MEDS: Carvedilol 6.25 MG TAB PO SCH ×2 (10:56→16:16)
[2017-12-22] MEDS: Lisinopril 5 MG TAB PO SCH (10:56)
[2017-12-22] MEDS: Allopurinol 100 MG TAB PO SCH (10:56)
[2017-12-22] MEDS: Multivitamin W/ Minerals 1 TAB PO SCH (10:57)
[2017-12-22] MEDS: Folic Acid 1 MG TAB PO SCH (10:57)
[2017-12-22] MEDS: Potassium Chloride 20 MEQ TAB PO SCH (10:58)
[2017-12-22] MEDS: Spironolactone 25 MG TAB PO SCH (10:58)
[2017-12-22] MEDS ORDERED: Morphine 4 MG/ML Carpuject IVPB PRN (12:26)
[2017-12-22 12:44] LABS: BF Color Red; Body Fluid Source PARACENTESIS FLD; Clarity Hazy (Clear); Tube # EDTA; WBC/NonHematic-Auto 375 /cumm
[2017-12-22 12:45] LABS: RBC Count-Automated 20000 /cumm
[2017-12-22 13:30] LABS: BF Segmented Neutrophils 9 %; Cell Count Non Hematic 59 %; Lymphocytes 32 %
[2017-12-22] MEDS: Furosemide 80 MG TAB PO SCH (15:10)
[2017-12-22] MEDS: risperiDONE 1 MG TAB PO SCH (21:42)
[2017-12-22] MEDS: SODIUM CHLORIDE 0.9% IV PRN (23:14)
[2017-12-22] MEDS: MORPHINE IV PRN (23:14)
[2017-12-23 05:54] LABS: ALT (SGPT) 32 U/L (8-55); AST (SGOT) 60 U/L (5-34); Albumin 1.9 g/dL (3.5-5.0); Alkaline Phosphatase 262 U/L (40-150); Anion Gap 10 mmol/L (10-20); BUN (Urea Nitrogen) 35 mg/dL (8.9-20.6); Bilirubin, Total 0.6 mg/dL (0.2-1.2); Calc. Creatinine Clearance 48 mL/min (70-130); Calcium 7.7 mg/dL (7.8-10.44); Carbon Dioxide 21 mmol/L (22-29); Chloride 108 mmol/L (98-107); Estimated GFR-MDRD 37; Globulin 4.7 g/dL (2.4-3.5); Glucose 280 mg/dL (70-105); Potassium 5.3 mmol/L (3.5-5.1); Protein, Total 6.6 g/dL (6.0-8.3); Sodium 134 mmol/L (136-145)
--- NOTE | 2017-12-23 06:45 | PDOC.FM ---
- Subjective Subjective: CC: Abdominal Pain HPI: Upon entering the room, patient was found to be sleeping comfortably. I pressed on his abdomen and he had minimal reaction. Once awake, the patient complained of cough and mild to moderate abdominal pain. Per MAR, he required 4 mg IVPB morphine overnight. I informed him that we have removed as much fluid as possible and his cough is likely 2/2 his tobacco abuse. I informed him that if he wants the coughing to eventually stop he needs to quit smoking cigarettes , marijuana, and using cocaine. I also informed him that his cocaine abuse may be contributing to his abdominal pain. I also informed the patient that I had seen him smoking outside of the hospital yesterday afternoon. He stated he only went outside for some "fresh air" but was not smoking. Explained that the plan was to d/c him home on hospice today. Informed him I adjusted his BP/diuretic regimen and was going to send him home on abx to be safe incase he had an early onset case of SBP. He stated that he needed to see the palliative care nurse today before he could be discharged. Informed him I would follow up with her and the plan to d/c. He expressed understanding. Patients significant other was in the room at time of exam. - Objective MAR Reviewed: Yes Vital Signs & Weight: Vital Signs (12 hours) Temp Pulse Resp BP BP Pulse Ox 12/23/17 04:26 97.5 F L 75 18 128/88 94 L 12/22/17 23:57 92 18 92 L 12/22/17 21:00 82 20 96 12/22/17 20:20 98.4 F 82 20 119/76 96 Weight Weight 86.137 kg Result Diagrams: 12/22/17 05:03 12/23/17 05:00 <Shan Strong - Last Filed: 12/23/17 07:19> - Objective Vital Signs & Weight: Vital Signs (12 hours) Temp Pulse Resp BP BP Pulse Ox 12/23/17 08:25 155/101 H 12/23/17 08:24 78 155/101 H 12/23/17 08:14 98.6 F 78 16 155/101 H 95 12/23/17 08:00 98.6 F 78 16 95 12/23/17 07:28 83 24 H 96 Weight Weight 86.137 kg Result Diagrams: 12/22/17 05:03 12/23/17 05:00 <Abiola Griffiths - Last Filed: 12/23/17 18:57> Phys Exam - Physical Examination Constitutional: NAD Respiratory: no wheezing, clear to auscultation bilateral Cardiovascular: RRR, no significant murmur Gastrointestinal: soft mild TTP, mild distention, Musculoskeletal: no edema Neurological: non-focal, moves all 4 limbs <Shan Strong - Last Filed: 12/23/17 07:19> Dx/Plan (1) Abdominal pain Code(s): R10.9 - UNSPECIFIED ABDOMINAL PAIN Status: Acute QualifierTitle: Abdominal location: generalized Qualified Code(s): R10.84 - Generalized abdominal pain Plan: 20 mL fluid removed on paracentesis. analysis showed <250 segs on analysis but it was roughly 24 hours after initiation of abx. - inconsistent examination - history given from patient and staff conflicts - strong suspicion for malingering - switch to PO omnicef to treat potential SBP since the patient is at high risk. (2) Acute on chronic systolic heart failure Code(s): I50.23 - ACUTE ON CHRONIC SYSTOLIC (CONGESTIVE) HEART FAILURE Status : Acute Plan: lungs cleared. No long requires oxygen. - switched back to Lasix 80 mg BID. - Switch metolazone to TTS dosing. - based on examination, stable for d/c. (3) Cirrhosis of liver with ascites Code(s): K74.60 - UNSPECIFIED CIRRHOSIS OF LIVER Status: Chronic QualifierTitle: Hepatic cirrhosis type: unspecified hepatic cirrhosis Qualified Code(s): K74.60 - Unspecified cirrhosis of liver Plan: Palliative care has arranged hospice agency with the patient - d/c today on hospice. (4) DM type 2 (diabetes mellitus, type 2) Status: Chronic QualifierTitle: Diabetes mellitus [facility] insulin use: with moth exterminator use Diabetes mellitus complication status: with kidney complications Diabetes mellitus complication detail: with chronic kidney disease Chronic kidney disease stage: stage 3 (moderate) Qualified Code(s): E11.22 - Type 2 diabetes mellitus with diabetic chronic kidney disease; N18.3 - Chronic kidney disease, stage 3 (moderate); N18.3 - Chronic kidney disease, stage 3 (moderate) ; Z79.4 - moth exterminator (current) use of insulin; Z79.4 - residential (current) use of insulin; Z79.4 - residential (current) use of insulin; Z79.4 - residential ( current) use of insulin Plan: - appears to have decent control when he complies with insulin. - continue current medications. (5) Noncompliance Code(s): Z91.19 - PATIENT'S NONCOMPLIANCE W OTH MEDICAL TREATMENT AND REGIMEN Status: Chronic Plan: suspect malingering behavior. - pain management per hospice <Shan Strong - Last Filed: 12/23/17 07:19> Attending Addendum - Attending Addendum Date/Time: 12/23/17 4222 I personally evaluated the patient and discussed the management with Dr. Strong I agree with the History, Examination, Assessment and Plan documented above with any addition or exceptions noted below- Patient out of room during rounds- went outside to smoke. Seen in hallways, ambulating back to room. Ready for discharge per resident, nursing staff, and case managment with arrangements made for hospice and transportation to house. D/c home today. <Abiola Griffiths - Last Filed: 12/23/17 18:57>
[2017-12-23 08:15] VITALS: BP 155/101; TEMP 98.6
[2017-12-23] MEDS: Lisinopril 5 MG TAB PO SCH (08:24)
[2017-12-23] MEDS: Allopurinol 100 MG TAB PO SCH (08:24)
[2017-12-23] MEDS: SODIUM CHLORIDE 0.9% IV PRN (08:25)
[2017-12-23] MEDS: Spironolactone 25 MG TAB PO SCH (08:25)
[2017-12-23] MEDS: MORPHINE IV PRN (08:25)
[2017-12-23] MEDS: Folic Acid 1 MG TAB PO SCH (08:25)
[2017-12-23] MEDS: Potassium Chloride 20 MEQ TAB PO SCH (08:25)
[2017-12-23] MEDS: Carvedilol 6.25 MG TAB PO SCH (08:25)
[2017-12-23] MEDS: Furosemide 80 MG TAB PO SCH (08:25)
[2017-12-23] MEDS ORDERED: Cefdinir 300 MG CAP PO SCH (09:00)
[2017-12-23] MEDS ORDERED: Multivitamin W/ Minerals 1 TAB PO SCH (12:00)
[2017-12-23] MEDS ORDERED: cefTRIAXone\\ROCEPHIN 2 GM in Sodium Chloride 0.9% 100 ML IVPB SCH (13:00)
--- NOTE | 2017-12-23 15:46 | DIS-2 ---
DATE OF ADMISSION: 12/21/2017 DATE OF DISCHARGE: 12/23/2017 RESIDENT: Shan Strong M.D. ADMITTING ATTENDING: Enedina Abdi M.D. DISCHARGE ATTENDING: Aboila Griffiths M.D. CONSULTATIONS: None. PROCEDURES: Ultrasound-guided paracentesis by Interventional Radiology on 12/22. Chest x-ray 12/21/2017 showed pulmonary vascular enlargement and pulmonary edema consistent with heart failure exacerbation. Abdominal ultrasound 12/21/2017 showed a very small amount of ascites; however, the patient refused paracentesis at this time. PERTINENT LABORATORY FINDINGS: White blood cell count at time of admission 8.9 trended down to 7.9, and neutrophils 57.6% at the time of admission, trended down to 54.6%. INR 1.3, unremarkable arterial blood gas. Potassium at time of admission 4.8, trended up to 53. He received 1 dose of Kayexalate prior to discharge. Creatinine at time of admission 1.9 and trended up to 2.3. Paracentesis fluid showed 375 white blood cells per mm with 9% segmented neutrophils. Microbiology: Blood cultures negative to date. Gram stain paracentesis fluid showed many red blood cells, moderate white blood cells and no organisms. Culture negative at 24 hours. PRIMARY DIAGNOSES: 1. Acute heart failure exacerbation. 2. Suspected spontaneous bacterial peritonitis. SECONDARY DIAGNOSES: 1. History of polysubstance abuse. 2. History of heart failure with reduced ejection fraction. 3. End-stage liver disease secondary to polysubstance abuse and chronic hepatitis C. 4. Noncompliance. DISCHARGE MEDICATIONS: 1. Allopurinol 100 mg daily. 2. Aspirin 81 mg daily. 3. Coreg 12.5 mg b.i.d. 4. Omnicef 300 mg b.i.d. for 5 days. 5. Vitamin B12 1000 mcg daily. 6. Iron sulfate 325 mg daily. 7. Folic acid 1 mg daily. 8. Lasix 80 mg b.i.d. 9. Lactulose 20 grams daily. 10. Lisinopril 5 mg daily. 11. Metolazone 2.5 mg 3 weekly. 12. Multivitamin. 13. Potassium chloride 20 mEq daily. 14. Risperdal 0.5 mg daily. 15. Spironolactone 25 mg daily. DISCONTINUED MEDICATIONS: None. ADDITIONAL INSTRUCTIONS: Repeat base metabolic panel in 1 week. HISTORY OF PRESENT ILLNESS AND HOSPITAL COURSE: Mr. Long is a 46-year-old -[place] male who presented to the ER with a chief complaint of shortness of breath that had worsened over the past 24 hours. He currently smokes one half pack per day. He also reported abdominal distention and tenderness over the same time along with a subjective fever. No fever was recorded while he was in the ER or during his hospitalization. He was admitted for heart failure exacerbation and started on IV Lasix with p.o. metolazone. He was initially given Rocephin and azithromycin in the ER. However, this was decreased Rocephin to cover presumed spontaneous bacterial peritonitis. Paracentesis was attempted in the ER; however, the patient had a very small amount of fluid present. This was deferred to Interventional Radiology. Interventional Radiology attempted paracentesis on day 1 of hospitalization; however, the patient refused the procedure at that time. This was eventually accomplished the following day. Upon further investigation, it was found that the patient had been fired from multiple hospice agencies due to medication noncompliance and concern for diverting his narcotic medications. Nursing staff stated that he had previously cheeks his [place] while in the hospital and sold the medication while in the hospital. Throughout his hospital stay, he demanded narcotic pain medication. However, he was consistently found out of bed, walking with no assistance and would go outside to smoke. His pain would only acutely worsen whenever physician staff were present. Once paracentesis was performed, given the fact that he had less than 250 segmented neutrophils per mL of the fluid removed, a suspicion for SBP dropped significantly. However, given his history and risk factors, it was decided to continue treating this outpatient. His respiratory symptoms had significantly improved by the day of discharge. His creatinine had trended up as had his potassium. However, given the fact that he is historically noncompliant with his medication and fluid restriction, it was felt that this will recover back to his baseline once he is discharged. Vital signs at time of discharge were stable. Blood pressure was mildly elevated. Seeing as the patient was being discharged on hospice and traditionally noncompliant with his medication, no adjustments were made to his regimen. A long discussion was had with the patient on the day of discharge regarding compliance with hospice rules and regulations. He was informed that this current agency is the last agency in town that will see him for his hospice care. He expressed understanding. DISPOSITION: Long-term prognosis is guarded. DISCHARGE INSTRUCTIONS: 1. Location: Home with hospice. 2. Diet: Heart healthy, low sodium, fluid restricted 2000 mL a day. 3. Activity: As tolerated. 4. Followup: The [facility]. He is to have a repeat base metabolic panel in 1 week. This was communicated with palliative care nursing staff who stated that she would communicate it to his hospice agency. Less than 30 minutes spent on discharge. CAMMIE
== END 2017-12-23 11:17 | disposition hospice, home (50) | DRG 371 ==
LOC: ERS 04:21 → ERHOLD 06:32 → IMCU/EMU 10:27 → 2NO 12:45
PROVIDERS: ADMIT Student in an Organized Health Care Education/Training Program; ATTEND Student in an Organized Health Care Education/Training Program
PROC: 0W9G3ZX Drainage of Peritoneal Cavity, Percutaneous Approach, Diagnostic (ICD-10-PCS; principal; 2017-12-22)
DX: K65.2 Spontaneous bacterial peritonitis (principal); I50.23 Acute on chronic systolic (congestive) heart failure; I13.0 Hypertensive heart and chronic kidney disease with heart failure and stage 1 through stage 4 chronic kidney disease, or unspecified chronic kidney disease; R18.8 Other ascites; K74.60 Unspecified cirrhosis of liver; N18.3 Chronic kidney disease, stage 3 (moderate); E11.22 Type 2 diabetes mellitus with diabetic chronic kidney disease; B18.2 Chronic viral hepatitis C; Z91.19 Patient's noncompliance with other medical treatment and regimen; Z79.4 Long term (current) use of insulin; F17.210 Nicotine dependence, cigarettes, uncomplicated
CPT/HCPCS: 36415; 36416; 49083; 71045; 76705; 80053; 81003; 81015; 82140; 82553; 82805; 83605; 83880; 84484; 85025; 85060; 85610; 85730; 87040; 87070; 87205; 89051; 93005; 94640; 94760; 96365; 96375; J0456; J0696; J1940; J2270; J7050; J7611; J7620; Q0162

== ENCOUNTER 2018-01-31 07:06 | Inpatient (IN) | payer OTHER ==
[2018-01-31 08:01] LABS: #Basophils 0.2 thou/uL (0.0-0.2); #Eosinphils 0.1 thou/uL (0.0-0.7); #Lymphocytes 2.3 thou/uL (1.20-3.40); #Monocytes 0.7 thou/uL (0.11-0.59); %Basophils 1.9 % (0.0-1.0); %Eosinophils 1.7 % (0.0-10.0); %Lymphocytes 27.4 % (21.0-51.0); %Monocytes 7.9 % (0.0-10.0); Hemoglobin 12.2 g/dL (14.0-18.0); Mean Corpuscular HGB CONC 34.1 g/dL (32.0-36.0); Mean Corpuscular Hemoglobin 31.4 pg (27.0-31.0); Mean Corpuscular Volume 92.1 fl (80.0-94.0); Mean Platelet Volume 8.2 fL (7.4-10.4); Platelet Count 195 thou/uL (130-400); RBC Distribution Width 14.2 % (11.5-14.5); Red Blood Cell (RBC) Count 3.88 mill/uL (4.70-6.10); White Blood Cell (WBC) Count 8.3 thou/uL (4.8-10.8)
[2018-01-31 08:18] LABS: ALT (SGPT) 47 U/L (8-55); AST (SGOT) 83 U/L (5-34); Albumin 1.7 g/dL (3.5-5.0); Alkaline Phosphatase 399 U/L (40-150); Anion Gap 10 mmol/L (10-20); BUN (Urea Nitrogen) 34 mg/dL (8.9-20.6); Bilirubin, Total 0.7 mg/dL (0.2-1.2); Calc. Creatinine Clearance 0 mL/min (70-130); Carbon Dioxide 23 mmol/L (22-29); Chloride 110 mmol/L (98-107); Estimated GFR-MDRD 48; Globulin 4.8 g/dL (2.4-3.5); Glucose 178 mg/dL (70-105); Potassium 4.6 mmol/L (3.5-5.1); Protein, Total 6.5 g/dL (6.0-8.3); Sodium 138 mmol/L (136-145)
--- NOTE | 2018-01-31 09:16 | RAD ---
PORTABLE CHEST 1 VIEW: DATE: 01/31/18. TIME: 7:54 a.m. HISTORY: Dyspnea, cough. FINDINGS: Comparison is made with the exam of 12/21/17. The heart size is enlarged. There is pulmonary vascular congestion with probable small effusions. N o pneumothoraces or lobar consolidation is seen. Findings are suspicious for CHF. POS: [facility]
--- NOTE | 2018-01-31 11:11 | PDOC.FPRHP ---
- History of Present Illness Chief Complaint: dyspnea History of Present Illness: Lynn Long is a 47 year old male with a PMH of End-stage liver disease 2/2 polysubstance abuse and chronic hepatitis C on hospice care (Hospice Agency is [facility]), hx of HFrEF, hx of polysubstance abuse, CKD Stage 3, DMII, hyperlipidemia, and noncompliance who was brought to the ED by his fiance, Cornelia, because he was short of breath and they could not find his home albuterol. The onset of the dyspnea was 2 days ago. Fiance provided much of the history in the ED, and stated that he has been admitted to the hospital in the past for fluid overload. According to the ER record, patient is a confirmed DNR. Admitting team was unable to obtain any history from patient as he refused to answer questions. ER doctor consulted palliative care and hospice care in the ED and they were able to contact [facility] who said that patient has 2 weeks worth of pain medications missing in his house. 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 Patient was going to be discharged but needs to be under the care of hospice prior to discharge which was why the resident service was called to admit the patient. ED Course: CXR and labs were done in ED. Patient was not started on any medications in the ED. - Allergies/Adverse Reactions Allergies Allergy/AdvReac Type Severity Reaction Status Date / Time ibuprofen [From Motrin] Allergy Intermediate Short of Verified 12/21/17 12:58 Breath fentanyl Allergy Verified 12/21/17 12:58 ketorolac tromethamine Allergy Short of Verified 12/21/17 12:58 [From Toradol] Breath NSAIDS (Non-Steroidal Allergy Short of Verified 12/21/17 12:58 Anti-Inflamma Breath tramadol HCl [From Ultram] Allergy Short of Verified 12/21/17 12:58 Breath - Home Medications Medication Instructions Recorded Confirmed Type Omeprazole Magnesium [Prilosec] 20 mg PO DAILY 11/14/16 01/31/18 History ALPRAZolam [Xanax] 2 mg PO BID 08/13/17 01/31/18 History HYDROcodone/Acetaminophen [[place] 1 - 2 tab PO TID PRN 08/13/17 01/31/18 History 10-325 Tablet] Allopurinol [Zyloprim] 100 mg PO DAILY #30 tablet 12/23/17 01/31/18 Rx Aspirin [Aspirin Chewable Tablet] 81 mg PO DAILY #30 tab 12/23/17 01/31/18 Rx Carvedilol [Coreg] 12.5 mg PO BID-WM #60 tab 12/23/17 01/31/18 Rx Cyanocobalamin (Vitamin B-12) 1,000 mcg PO DAILY #30 tab 12/23/17 01/31/18 Rx [Vitamin B-12] Ferrous Sulfate [Feosol] 325 mg PO QAM-WM #30 tab 12/23/17 01/31/18 Rx Folic Acid [Folvite] 1 mg PO DAILY #30 tab 12/23/17 01/31/18 Rx Furosemide [Lasix] 80 mg PO 0900,1400 #60 tab 12/23/17 01/31/18 Rx Lactulose 10 GM/15ML Oral Junie 20 gm PO DAILY #450 ml 12/23/17 01/31/18 Rx [Lactulose] Lisinopril [Zestril] 5 mg PO DAILY #30 tab 12/23/17 01/31/18 Rx Metolazone 2.5 mg PO ASDIR #10 tab 12/23/17 01/31/18 Rx Multivitamin W/ Minerals 1 tab PO DAILY #30 tab 12/23/17 01/31/18 Rx [Theragran M] Potassium Chloride [K-Dur] 20 meq PO DAILY #30 tab 12/23/17 01/31/18 Rx risperiDONE [RisperDAL] 0.5 mg PO DAILY #30 tab 12/23/17 01/31/18 Rx Spironolactone [Aldactone] 25 mg PO DAILY 01/31/18 01/31/18 History - History PMHx: End-Stage Liver Disease 2/2 Chronic Hepatitis C and polysubstance abuse, CKD Stage 3, COPD, HFrEF, CAD, Dyslipidemia PSHx: Hernia repair, Cardiac stent, Abd paracentesis FHx: Noncontributory Social: currently smokes 1.5 pk per day - Review of Systems ROS unobtainable: other (patient refuses to answer questions and keeps falling asleep) - Vital signs BP: 143/102 HR: 97 RR: 23 Tmax: 98.4 Pox: 100% on 2L Wt: 92.9 kg - Physical Exam Constitutional: NAD -Constitutional: wakes to sternal rubs, opens eyes, yells, refuses to answer questions, falls asleep HEENT: normocephalic and atraumatic, PERRLA, EOMI, conjunctiva clear, no scleral icterus, TM's clear and intact, normal nasal mucosa, MMM, oropharynx clear Neck: supple, FROM, trachea midline, no LAD, no JVD Chest: no-tender to palpation, no lesions Heart: RRR, normal S1/S2, no murmurs/rubs/gallops -Lungs: diffuse wheezes heard bilaterally, minimal rales, suboptimal air entry, no respiratory distress or retractions Abdomen: soft, non-tender, bowel sounds present, no masses/distention Musculoskeletal: normal structure, normal tone, ROM grossly normal Neurological: no focal deficit, normal sensation Skin: no rash/lesions, good turgor, capillary refill <2 seconds Heme/Lymphatic: no unusual bruising or bleeding, no purpura, no petechia Psychiatric: other (did not respond to any questions and was not very cooperative with exam) FMR H&P: Results - Labs Result Diagrams: 02/01/18 06:47 02/01/18 06:47 Lab results: WBC 8.3 thou/uL (4.8-10.8) 01/31/18 07:45 Hgb 12.2 g/dL (14.0-18.0) L 01/31/18 07:45 Hct 35.8 % (42.0-52.0) L 01/31/18 07:45 MCV 92.1 fl (80.0-94.0) 01/31/18 07:45 Plt Count 195 thou/uL (130-400) 01/31/18 07:45 Neutrophils % 61.0 % (42.0-75.0) 01/31/18 07:45 Sodium 138 mmol/L (136-145) 01/31/18 07:45 Potassium 4.6 mmol/L (3.5-5.1) 01/31/18 07:45 Chloride 110 mmol/L (98-107) H 01/31/18 07:45 Carbon Dioxide 23 mmol/L (22-29) 01/31/18 07:45 BUN 34 mg/dL (8.9-20.6) H 01/31/18 07:45 Creatinine 1.84 mg/dL (0.6-1.3) H 01/31/18 07:45 Glucose 178 mg/dL (70-105) H 01/31/18 07:45 Calcium 8.0 mg/dL (7.8-10.44) 01/31/18 07:45 Total Bilirubin 0.7 mg/dL (0.2-1.2) 01/31/18 07:45 AST 83 U/L (5-34) H 01/31/18 07:45 ALT 47 U/L (8-55) 01/31/18 07:45 Alkaline Phosphatase 399 U/L (40-150) H 01/31/18 07:45 Ammonia 99 umol/L (18-72) H 01/31/18 08:35 B-Natriuretic Peptide 4335.0 pg/mL (0-100) H 01/31/18 07:45 Serum Total Protein 6.5 g/dL (6.0-8.3) 01/31/18 07:45 Albumin 1.7 g/dL (3.5-5.0) L 01/31/18 07:45 FMR H&P: A/P - Problem List (1) Acute on chronic systolic heart failure Current Visit: No Status: Acute Code(s): I50.23 - ACUTE ON CHRONIC SYSTOLIC (CONGESTIVE) HEART FAILURE (2) End stage liver disease Current Visit: Yes Status: Chronic Code(s): K72.90 - HEPATIC FAILURE, UNSPECIFIED WITHOUT COMA (3) CKD (chronic kidney disease), stage III Current Visit: Yes Status: Chronic Code(s): N18.3 - CHRONIC KIDNEY DISEASE, STAGE 3 (MODERATE) (4) Coronary artery disease Current Visit: Yes Status: Chronic Code(s): I25.10 - ATHSCL HEART DISEASE OF [place] CORONARY ARTERY W/O ANG PCTRS (5) DM type 2 (diabetes mellitus, type 2) Current Visit: No Status: Chronic Qualifiers: Diabetes mellitus termite inspector insulin use: with fpc use Diabetes mellitus complication status: with kidney complications Diabetes mellitus complication detail: with chronic kidney disease Chronic kidney disease stage : stage 3 (moderate) Qualified Code(s): E11.22 - Type 2 diabetes mellitus with diabetic chronic kidney disease; N18.3 - Chronic kidney disease, stage 3 ( moderate); N18.3 - Chronic kidney disease, stage 3 (moderate); N18.3 - Chronic kidney disease, stage 3 (moderate); Z79.4 - petroleum terminal plant operator (current) use of insulin; Z79.4 - shelter (current) use of insulin; Z79.4 - petroleum terminal plant operator (current) use of insulin; Z79.4 - petroleum terminal plant operator (current) use of insulin (6) HTN (hypertension) Current Visit: No Status: Chronic Code(s): I10 - ESSENTIAL (PRIMARY) HYPERTENSION (7) Hepatitis C Current Visit: No Status: Chronic Code(s): B19.20 - UNSPECIFIED VIRAL HEPATITIS C WITHOUT HEPATIC COMA Qualifiers: (8) Noncompliance Current Visit: No Status: Chronic Code(s): Z91.19 - PATIENT'S NONCOMPLIANCE W OTH MEDICAL TREATMENT AND REGIMEN - Plan 1) Acute on Chronic Heart Failure Patient presented with two day history of worsening dyspnea. Known history of noncompliance. Fiance states that he does not take his medications as he should and they were unable to find his inhaler. Currently under hospice care with [facility]. - Hospice consulted in the ED, with patient's hx of diverting pain medications and loss of 2 wks of pain medications, they recommended admitting patient to hospital before they accept him back to hospice. - Likely component of mild CHF exacerbation along with uncontrolled COPD - Slightly increased NC O2 to maintain adequate O2 sats - Continue supplemental O2, alice q4h duonebs - Continue home lasix, spironolactone, and metolazone - Place on tele, obs status - Palliative care and hospice team consulted, appreciate recommendations 2) End-Stage Liver Disease - Continue home regimen - Ammonia increased to 99 - Will increase patient's daily regimen on lactulose to 10 mg TID 3) Type 2 DM - Continue home lantus - Mod SSI - Accuchecks ACHS - Hypoglycemia protocol prn 4) CAD - home meds 5) CKD Stage 3 - Kidney function is actually better than previous admission - Will continue home medications and continue to monitor daily BMPs 6) 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 - see above (7) Bipolar Disorder - Continue home meds Diet: HH incl low sodium, Diabetic Diet Activity: Ad amena, consider sitter if patient becomes agitated Code Status: Full Code, patient has history of DNR status and is currently under hospice care but patient was not answering any questions so decision was made to default to full code. Palliative Care team consulted for Goals of Care. FMR H&P: Upper Level - Pertinent history 47 y/o BM with pmhx of end-stage liver disease 2/2 polysubstance abuse and chronic hepatitis C on hospice care, HFpEF (chronically on O2), CKD Stage 3, DMII, hyperlipidemia, and medical noncompliance who was brought to the ED by his fianceCornelia, because he was short of breath and they could not find his home albuterol. Dyspnea began to acutely worsened 2 days ago. Patient acting confused in the ED, so majority of history obtaining from his fiance. [facility] was contacted who said that the patient has 2 weeks worth of pain medications missing in his house and is on the verge of being fired. 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 Residency service asked to place the patient in observation until he can have these hospice issues sorted out prior to discharge. - Pertinent findings PE: Gen: AAOx1, NAD HEENT: NC in place at 3L (baseline) Resp: pursed lip breathing, prolonged exhilation, CTAB Abd: NT/ND, +BS Ext: 2+ pitting edema Pulses: intact b/l UE's Neuro: no focal deficits Psych: uncooperative - Plan Date/Time: 01/31/18 1111 I, Les Fuchs MD, have evaluated this patient and agree with findings/plan as outlined by internet sales associate resident. Pertinent changes/additions are listed here. 47 yo BM with: 1) Acute on Chronic Diastolic Heart Failure: Place in observation to telemetry for worsened dyspnea. Known history of medication noncompliance. Given patient' s hx of diverting pain medications and loss of 2 wks of pain medications, hospice recommends observing patient in hospital before he can be accepted back to hospice. Suspect mild CHF exacerbation along with uncontrolled COPD. BNP 4335 , which is around his recent baseline. Continue prn O2 via NC to maintain sats 90-92%. Will schedule q4h duonebs. Restart home lasix, spironolactone, and metolazone. Palliative and hospice teams consulted, appreciate continued recommendations. 2) End-Stage Liver Disease: Continue home medication regimen, with the exception of increasing lactulose to 10 mg TID, given increased ammonia to 99. Could explain some of the patient's current confusion. 3) Type 2 DML: Continue lantus. Start moderate SSI, ACHS accuchecks. 4) CKD Stage 3: Renal fxn at or slightly better than baseline. Avoid nephrotoxic agents and continue to monitor. 5) 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: Mgmt as above 6) Bipolar Disorder: Home medications 7) H/o polysubstance abuse and medication divergence. Consider checking UDS. Case management consult will possibly be needed. Attending Addendum - Attending Addendum Date/Time: 01/30/18 581 I personally evaluated the patient and discussed the management with Dr. Geiger and Dr Fuchs I agree with the History, Examination, Assessment and Plan documented above with any addition or exceptions noted below. Will treat for overload state and hepatic encephalopathy. Awaiting reapproval for hospice due to narcotic abuse. Kim
[2018-01-31] MEDS ORDERED: hydrALAZINE 20 MG/ML VIAL ONE (11:44)
[2018-01-31] MEDS ORDERED: hydrALAZINE 25 MG TAB ONE (11:47)
[2018-01-31] MEDS ORDERED: Dextrose 50% Abboject 50 ML SYRINGE SLOW IVP PRN (13:30)
[2018-01-31] MEDS ORDERED: Dextrose 5% in Water 1,000 ML IV PRN (13:30)
[2018-01-31] MEDS ORDERED: Spironolactone 25 MG TAB PO SCH ×2 (13:31→14:00)
[2018-01-31 13:44] VITALS: BMI 31.3
[2018-01-31] MEDS ORDERED: Metolazone 2.5 MG TAB PO SCH (13:45)
[2018-01-31] MEDS ORDERED: Furosemide 40 MG TAB PO SCH (14:00)
[2018-01-31] MEDS: HYDROcodone/Acetaminophen 10/325 mg Tablet PO PRN (14:30)
[2018-01-31] MEDS: Furosemide 80 MG TAB PO SCH (14:32)
[2018-01-31] MEDS: Insulin Regular 300 UNITS/3 ML VIAL SC PRN (17:51)
[2018-01-31] MEDS: Carvedilol 6.25 MG TAB PO SCH (18:09)
[2018-01-31] MEDS ORDERED: Non-Formulary Item 1 EACH (Alprazolam [Xanax] 2 MG) PO SCH (21:00)
[2018-01-31] MEDS: Insulin Glargine 40 UNITS in Pre-Filled Syringe 1 EACH SC SCH (22:15)
[2018-01-31] MEDS: ALPRAZolam 1 MG TAB PO SCH (22:17)
[2018-02-01] MEDS: HYDROcodone/Acetaminophen 10/325 mg Tablet PO PRN ×3 (01:36→16:17)
--- NOTE | 2018-02-01 06:15 | PDOC.FM ---
- Subjective Subjective: Lynn Long seen at bedside this morning. He had some agitation overnight and orders were given not to give him any xanax or norco because he has been sedated since admission. He became more lucid overnight and was able to get up and go to the restroom. Complained of pain and received his home norco. He denies any complaints this morning, states that he does not want to be dependent on drugs. - Objective MAR Reviewed: Yes Vital Signs & Weight: Vital Signs (12 hours) Temp Pulse Resp BP BP BP Pulse Ox 02/01/18 03:33 95 02/01/18 01:59 88 142/100 H 01/31/18 23:50 159/99 H 01/31/18 22:17 97.9 F 95 20 137/87 96 01/31/18 20:25 97.9 F 95 20 137/87 96 Weight Weight 89.358 kg I&O: 01/30/18 01/31/18 02/01/18 06:59 06:59 06:59 Intake Total 750 Output Total 0 Balance 750 Result Diagrams: 02/01/18 06:47 02/01/18 06:47 <Fredy Geiger - Last Filed: 02/01/18 08:31> - Objective Vital Signs & Weight: Vital Signs (12 hours) Temp Pulse Resp BP BP BP Pulse Ox 02/01/18 08:40 89 02/01/18 08:39 157/103 H 02/01/18 08:36 97.4 F L 89 16 02/01/18 08:00 97.4 F L 89 16 157/103 H 100 02/01/18 07:17 97 02/01/18 07:16 88 20 97 02/01/18 03:33 95 02/01/18 01:59 88 142/100 H Weight Weight 89.358 kg I&O: 01/31/18 02/01/18 02/02/18 06:59 06:59 06:59 Intake Total 1375 Output Total 0 Balance 1375 Result Diagrams: 02/01/18 06:47 02/01/18 06:47 <Enedina Abdi - Last Filed: 02/01/18 12:17> Phys Exam - Physical Examination Constitutional: NAD HEENT: moist MMs, sclera anicteric Neck: no JVD, supple, full ROM Respiratory: no rales, no rhonchi, clear to auscultation bilateral minimal wheezes, improvement from yesterday Cardiovascular: RRR, no significant murmur Gastrointestinal: soft, non-tender, no distention Musculoskeletal: edema present (2+) Neurological: non-focal, normal sensation, moves all 4 limbs Psychiatric: normal affect, A&O x 3 Skin: no rash, normal turgor, cap refill <2 seconds <Fredy Geiger - Last Filed: 02/01/18 08:31> Dx/Plan (1) Acute on chronic systolic heart failure Code(s): I50.23 - ACUTE ON CHRONIC SYSTOLIC (CONGESTIVE) HEART FAILURE Status : Acute (2) End stage liver disease Code(s): K72.90 - HEPATIC FAILURE, UNSPECIFIED WITHOUT COMA Status: Chronic (3) CKD (chronic kidney disease), stage III Code(s): N18.3 - CHRONIC KIDNEY DISEASE, STAGE 3 (MODERATE) Status: Chronic (4) Coronary artery disease Code(s): I25.10 - ATHSCL HEART DISEASE OF [place] CORONARY ARTERY W/O ANG PCTRS Status: Chronic (5) DM type 2 (diabetes mellitus, type 2) Status: Chronic QualifierTitle: Diabetes mellitus terminal system operator insulin use: with terminal system operator use Diabetes mellitus complication status: with kidney complications Diabetes mellitus complication detail: with chronic kidney disease Chronic kidney disease stage: stage 3 (moderate) Qualified Code(s): E11.22 - Type 2 diabetes mellitus with diabetic chronic kidney disease; N18.3 - Chronic kidney disease, stage 3 (moderate); N18.3 - Chronic kidney disease, stage 3 (moderate) ; N18.3 - Chronic kidney disease, stage 3 (moderate); Z79.4 - detention (current ) use of insulin; Z79.4 - exterminator termite (current) use of insulin; Z79.4 - detention (current) use of insulin; Z79.4 - exterminator termite (current) use of insulin (6) HTN (hypertension) Code(s): I10 - ESSENTIAL (PRIMARY) HYPERTENSION Status: Chronic (7) Hepatitis C Code(s): B19.20 - UNSPECIFIED VIRAL HEPATITIS C WITHOUT HEPATIC COMA Status: Chronic (8) Noncompliance Code(s): Z91.19 - PATIENT'S NONCOMPLIANCE W OTH MEDICAL TREATMENT AND REGIMEN Status: Chronic - Plan Plan: 1) Acute on Chronic Heart Failure Patient presented with two day history of worsening dyspnea. Known history of noncompliance. Fiance states that he does not take his medications as he should and they were unable to find his inhaler. Currently under hospice care with [facility]. - Hospice consulted in the ED, with patient's hx of diverting pain medications and loss of 2 wks of pain medications, they recommended admitting patient to hospital before they accept him back to hospice. - Likely component of mild CHF exacerbation along with uncontrolled COPD - Slightly increased NC O2 need to maintain adequate O2 sats - Continue supplemental O2, alice q4h duonebs - Continue home lasix, spironolactone, and metolazone - Place on tele, obs status - Palliative care and hospice team consulted, appreciate recommendations - this morning, at baseline, O2 sats are 95% on RA 2) End-Stage Liver Disease - Continue home regimen - Ammonia increased to 99, repeat ammonia this AM is 88 - Will continue regimen of lactulose 10 mg TID 3) Type 2 DM - Continue home lantus - Mod SSI - Accuchecks ACHS - Hypoglycemia protocol prn 4) CAD - home meds 5) CKD Stage 3 - Kidney function is actually better than previous admission - Will continue home medications and continue to monitor daily BMPs 6) 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 - see above (7) Bipolar Disorder - Continue home meds <Fredy Geiger - Last Filed: 02/01/18 08:31> (1) Acute on chronic systolic heart failure Code(s): I50.23 - ACUTE ON CHRONIC SYSTOLIC (CONGESTIVE) HEART FAILURE Status : Acute (2) End stage liver disease Code(s): K72.90 - HEPATIC FAILURE, UNSPECIFIED WITHOUT COMA Status: Chronic (3) CKD (chronic kidney disease), stage III Code(s): N18.3 - CHRONIC KIDNEY DISEASE, STAGE 3 (MODERATE) Status: Chronic (4) Coronary artery disease Code(s): I25.10 - ATHSCL HEART DISEASE OF [place] CORONARY ARTERY W/O ANG PCTRS Status: Chronic (5) DM type 2 (diabetes mellitus, type 2) Status: Chronic Qualifiers: Diabetes mellitus care home insulin use: with terminal system operator use Diabetes mellitus complication status: with kidney complications Diabetes mellitus complication detail: with chronic kidney disease Chronic kidney disease stage : stage 3 (moderate) Qualified Code(s): E11.22 - Type 2 diabetes mellitus with diabetic chronic kidney disease; N18.3 - Chronic kidney disease, stage 3 ( moderate); N18.3 - Chronic kidney disease, stage 3 (moderate); N18.3 - Chronic kidney disease, stage 3 (moderate); Z79.4 - detention (current) use of insulin; Z79.4 - exterminator termite (current) use of insulin; Z79.4 - detention (current) use of insulin; Z79.4 - detention (current) use of insulin (6) HTN (hypertension) Code(s): I10 - ESSENTIAL (PRIMARY) HYPERTENSION Status: Chronic (7) Hepatitis C Code(s): B19.20 - UNSPECIFIED VIRAL HEPATITIS C WITHOUT HEPATIC COMA Status: Chronic Qualifiers: (8) Noncompliance Code(s): Z91.19 - PATIENT'S NONCOMPLIANCE W OTH MEDICAL TREATMENT AND REGIMEN Status: Chronic <Enedina Abdi - Last Filed: 02/01/18 12:17> Attending Addendum - Attending Addendum Date/Time: 02/01/18 1211 I personally evaluated the patient and discussed the management with Dr. Fuchs and Dr. Geiger I agree with the History, Examination, Assessment and Plan documented above with any addition or exceptions noted below. 47 yo male with significantly poor prognosis admitted for decline and worsening Hepatic encephalopathy. Patient appears to be inpatient hospice appropriate. No other treatment options available. Continues to severely decline. Not able to take appropriate medications. Encephalopatic since admission. Has been hospice candidate for many months. However, due to some behaviors has been discharged from their care. Today patient appears near the end. Patient overloaded and not able to handle small ammonia load. Has taken small dose of lactose today which continued assistance at bedside. Will contact inpatient hospice for evaluation. ABrayMD <Enedina Abdi - Last Filed: 02/01/18 12:17>
[2018-02-01 06:56] LABS: #Basophils 0.2 thou/uL (0.0-0.2); #Eosinphils 0.1 thou/uL (0.0-0.7); #Lymphocytes 2.3 thou/uL (1.20-3.40); #Monocytes 0.7 thou/uL (0.11-0.59); #Neutrophils 4.9 thou/uL (1.40-6.50); %Basophils 1.9 % (0.0-1.0); %Eosinophils 1.3 % (0.0-10.0); %Lymphocytes 28.2 % (21.0-51.0); %Monocytes 8.8 % (0.0-10.0); %Neutrophils 59.8 % (42.0-75.0); Hemoglobin 11.9 g/dL (14.0-18.0); Mean Corpuscular HGB CONC 34.9 g/dL (32.0-36.0); Mean Corpuscular Hemoglobin 32.2 pg (27.0-31.0); Mean Corpuscular Volume 92.3 fL (78.0-98.0); Mean Platelet Volume 7.8 fL (7.4-10.4); Platelet Count 168 thou/uL (130-400); RBC Distribution Width 14.7 % (11.5-14.5); White Blood Cell (WBC) Count 8.1 thou/uL (4.8-10.8)
[2018-02-01 07:07] LABS: Anion Gap 11 mmol/L (10-20); BUN (Urea Nitrogen) 38 mg/dL (8.9-20.6); Calc. Creatinine Clearance 55 mL/min (70-130); Calcium 7.9 mg/dL (7.8-10.44); Carbon Dioxide 22 mmol/L (22-29); Chloride 111 mmol/L (98-107); Estimated GFR-MDRD 42; Glucose 130 mg/dL (70-105); Potassium 4.2 mmol/L (3.5-5.1); Sodium 140 mmol/L (136-145)
[2018-02-01] MEDS: Potassium Chloride 20 MEQ TAB PO SCH (08:35)
[2018-02-01] MEDS: Cyanocobalamin (Vitamin B-12) 1,000 MCG TAB PO SCH (08:36)
[2018-02-01] MEDS: Multivitamin W/ Minerals 1 TAB PO SCH (08:36)
[2018-02-01] MEDS: Allopurinol 100 MG TAB PO SCH (08:36)
[2018-02-01] MEDS: Spironolactone 25 MG TAB PO SCH (08:37)
[2018-02-01] MEDS: Furosemide 80 MG TAB PO SCH ×2 (08:37→13:44)
[2018-02-01] MEDS: ALPRAZolam 1 MG TAB PO SCH (08:38)
[2018-02-01] MEDS: Ferrous Sulfate 325 MG TAB PO SCH (08:39)
[2018-02-01] MEDS: Folic Acid 1 MG TAB PO SCH (08:39)
[2018-02-01] MEDS: Carvedilol 6.25 MG TAB PO SCH ×2 (08:39→16:17)
[2018-02-01] MEDS: risperiDONE 0.25 MG TAB PO SCH (08:40)
[2018-02-01] MEDS: Lisinopril 5 MG TAB PO SCH (08:40)
[2018-02-01] MEDS ORDERED: Non-Formulary Item 1 EACH (Omeprazole Magnesium [Prilosec] 20 MG) PO SCH (09:00)
[2018-02-01] MEDS ORDERED: Non-Formulary Item 1 EACH (Risperidone [Risperdal] 0.5 MG) PO SCH (09:00)
[2018-02-01] MEDS ORDERED: Lorazepam 1 MG TAB PO PRN (17:46)
[2018-02-01] MEDS: Insulin Glargine 40 UNITS in Pre-Filled Syringe 1 EACH SC SCH (23:10)
[2018-02-02] MEDS: Insulin Glargine 40 UNITS in Pre-Filled Syringe 1 EACH SC SCH (02:10)
--- NOTE | 2018-02-02 06:08 | PDOC.FM ---
- Subjective Subjective: Lynn Long seen at bedside this morning. Resting comfortably with no complaints. Patient was less agitated last night. He will be evaluated by [facility] today. - Objective MAR Reviewed: Yes Vital Signs & Weight: Vital Signs (12 hours) Temp Pulse Resp BP Pulse Ox 02/02/18 02:21 77 18 106/90 99 02/01/18 21:12 97.7 F 78 20 99 Weight Weight 89.358 kg I&O: 01/31/18 02/01/18 02/02/18 06:59 06:59 06:59 Intake Total 1375 800 Output Total 0 Balance 1375 800 Result Diagrams: 02/01/18 06:47 02/01/18 06:47 <Fredy Geiger - Last Filed: 02/02/18 08:36> - Objective Vital Signs & Weight: Vital Signs (12 hours) Temp Pulse Resp BP Pulse Ox 02/03/18 07:37 97.8 F 81 18 145/106 H 96 02/02/18 20:20 97.8 F 81 16 02/02/18 20:00 97.8 F 81 16 116/86 96 Weight Weight 89.358 kg I&O: 02/02/18 02/03/18 02/04/18 06:59 06:59 06:59 Intake Total 1220 800 Balance 1220 800 Result Diagrams: 02/01/18 06:47 02/01/18 06:47 <Enedina Abdi - Last Filed: 02/03/18 07:50> Phys Exam - Physical Examination Constitutional: NAD HEENT: moist MMs, sclera anicteric Neck: no JVD, supple, full ROM Respiratory: no wheezing, no rales, no rhonchi, clear to auscultation bilateral improved from admission Cardiovascular: RRR, no significant murmur Gastrointestinal: soft, non-tender, no distention Musculoskeletal: pulses present, edema present Neurological: non-focal, normal sensation Psychiatric: normal affect, A&O x 3 Skin: no rash, normal turgor <Fredy Geiger - Last Filed: 02/02/18 08:36> Dx/Plan (1) Acute on chronic systolic heart failure Code(s): I50.23 - ACUTE ON CHRONIC SYSTOLIC (CONGESTIVE) HEART FAILURE Status : Acute (2) End stage liver disease Code(s): K72.90 - HEPATIC FAILURE, UNSPECIFIED WITHOUT COMA Status: Chronic (3) CKD (chronic kidney disease), stage III Code(s): N18.3 - CHRONIC KIDNEY DISEASE, STAGE 3 (MODERATE) Status: Chronic (4) Coronary artery disease Code(s): I25.10 - ATHSCL HEART DISEASE OF [place] CORONARY ARTERY W/O ANG PCTRS Status: Chronic (5) DM type 2 (diabetes mellitus, type 2) Status: Chronic QualifierTitle: Diabetes mellitus oil heaterman insulin use: with assisted use Diabetes mellitus complication status: with kidney complications Diabetes mellitus complication detail: with chronic kidney disease Chronic kidney disease stage: stage 3 (moderate) Qualified Code(s): E11.22 - Type 2 diabetes mellitus with diabetic chronic kidney disease; N18.3 - Chronic kidney disease, stage 3 (moderate); N18.3 - Chronic kidney disease, stage 3 (moderate) ; N18.3 - Chronic kidney disease, stage 3 (moderate); Z79.4 - [facility] (current ) use of insulin; Z79.4 - [facility] (current) use of insulin; Z79.4 - [facility] (current) use of insulin; Z79.4 - [facility] (current) use of insulin (6) HTN (hypertension) Code(s): I10 - ESSENTIAL (PRIMARY) HYPERTENSION Status: Chronic (7) Hepatitis C Code(s): B19.20 - UNSPECIFIED VIRAL HEPATITIS C WITHOUT HEPATIC COMA Status: Chronic (8) Noncompliance Code(s): Z91.19 - PATIENT'S NONCOMPLIANCE W OTH MEDICAL TREATMENT AND REGIMEN Status: Chronic - Plan Plan: 1) Acute on Chronic Heart Failure Patient presented with two day history of worsening dyspnea. Known history of noncompliance. Fiance states that he does not take his medications as he should and they were unable to find his inhaler. Pt under hospice care with [facility] prior to admission. Hospice consulted in the ED, with patient' s hx of diverting pain medications and loss of 2 wks of pain medications, they recommended admitting patient to hospital before they accept him back to hospice. - Slightly increased NC O2 need to maintain adequate O2 sats initially, currently at baseline - Continue supplemental O2, prn q4h duonebs - Continue home lasix, spironolactone, and metolazone - Palliative care and hospice team consulted, appreciate recommendations - this morning, at baseline, O2 sats are 95% on RA - CM and palliative care team working [facility], see CM notes for further detail. 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 - see above (7) Bipolar Disorder - Continue home meds <Fredy Geiger - Last Filed: 02/02/18 08:36> (1) Acute on chronic systolic heart failure Code(s): I50.23 - ACUTE ON CHRONIC SYSTOLIC (CONGESTIVE) HEART FAILURE Status : Acute (2) End stage liver disease Code(s): K72.90 - HEPATIC FAILURE, UNSPECIFIED WITHOUT COMA Status: Chronic (3) CKD (chronic kidney disease), stage III Code(s): N18.3 - CHRONIC KIDNEY DISEASE, STAGE 3 (MODERATE) Status: Chronic (4) Coronary artery disease Code(s): I25.10 - ATHSCL HEART DISEASE OF [place] CORONARY ARTERY W/O ANG PCTRS Status: Chronic (5) DM type 2 (diabetes mellitus, type 2) Status: Chronic Qualifiers: Diabetes mellitus assisted insulin use: with assisted use Diabetes mellitus complication status: with kidney complications Diabetes mellitus complication detail: with chronic kidney disease Chronic kidney disease stage : stage 3 (moderate) Qualified Code(s): E11.22 - Type 2 diabetes mellitus with diabetic chronic kidney disease; N18.3 - Chronic kidney disease, stage 3 ( moderate); N18.3 - Chronic kidney disease, stage 3 (moderate); N18.3 - Chronic kidney disease, stage 3 (moderate); Z79.4 - termite treater helper (current) use of insulin; Z79.4 - [facility] (current) use of insulin; Z79.4 - termite treater helper (current) use of insulin; Z79.4 - termite treater helper (current) use of insulin (6) HTN (hypertension) Code(s): I10 - ESSENTIAL (PRIMARY) HYPERTENSION Status: Chronic (7) Hepatitis C Code(s): B19.20 - UNSPECIFIED VIRAL HEPATITIS C WITHOUT HEPATIC COMA Status: Chronic Qualifiers: (8) Noncompliance Code(s): Z91.19 - PATIENT'S NONCOMPLIANCE W OTH MEDICAL TREATMENT AND REGIMEN Status: Chronic <Enedina Abdi - Last Filed: 02/03/18 07:50> Attending Addendum - Attending Addendum Date/Time: 02/02/18 [id number] I personally evaluated the patient and discussed the management with Dr. Fuchs and Dr. Geiger I agree with the History, Examination, Assessment and Plan documented above with any addition or exceptions noted below. Awaiting hospice placement. Currently plan is to move in with family/friends with hospice care. Still waiting to finalize. Continue current care. ABrayMD <Enedina Abdi - Last Filed: 02/03/18 07:50>
[2018-02-02] MEDS: HYDROcodone/Acetaminophen 10/325 mg Tablet PO PRN ×3 (09:13→20:02)
[2018-02-02] MEDS: Furosemide 80 MG TAB PO SCH ×2 (09:15→15:14)
[2018-02-02] MEDS: Metolazone 2.5 MG TAB PO SCH (09:15)
[2018-02-02] MEDS: Spironolactone 25 MG TAB PO SCH (09:16)
[2018-02-02] MEDS: Potassium Chloride 20 MEQ TAB PO SCH (09:17)
[2018-02-02] MEDS: Ferrous Sulfate 325 MG TAB PO SCH (09:19)
[2018-02-02] MEDS: Carvedilol 6.25 MG TAB PO SCH ×2 (09:19→18:37)
[2018-02-02] MEDS: Lisinopril 5 MG TAB PO SCH (09:20)
[2018-02-02] MEDS: Multivitamin W/ Minerals 1 TAB PO SCH (09:20)
[2018-02-02] MEDS: Cyanocobalamin (Vitamin B-12) 1,000 MCG TAB PO SCH (09:20)
[2018-02-02] MEDS: Folic Acid 1 MG TAB PO SCH (09:20)
[2018-02-02] MEDS: risperiDONE 0.25 MG TAB PO SCH (09:20)
[2018-02-02] MEDS: Allopurinol 100 MG TAB PO SCH (09:20)
--- NOTE | 2018-02-03 06:46 | PDOC.FM ---
- Subjective Subjective: Lynn Long seen at bedside this morning. He is resting comfortably with no complaints. He had no acute events overnight. - Objective MAR Reviewed: Yes Vital Signs & Weight: Vital Signs (12 hours) Temp Pulse Resp BP Pulse Ox 02/02/18 20:20 97.8 F 81 16 02/02/18 20:00 97.8 F 81 16 116/86 96 Weight Weight 89.358 kg I&O: 02/01/18 02/02/18 02/03/18 06:59 06:59 06:59 Intake Total 1375 1220 800 Output Total 0 Balance 1375 1220 800 Result Diagrams: 02/01/18 06:47 02/01/18 06:47 <Fredy Geiger - Last Filed: 02/03/18 08:44> - Objective Vital Signs & Weight: Vital Signs (12 hours) Temp Pulse Resp BP Pulse Ox 02/03/18 08:00 97.8 F 81 18 02/03/18 07:37 97.8 F 81 18 145/106 H 96 Weight Weight 89.358 kg I&O: 02/02/18 02/03/18 02/04/18 06:59 06:59 06:59 Intake Total 1220 800 Balance 1220 800 Result Diagrams: 02/01/18 06:47 02/01/18 06:47 <Enedina Abdi - Last Filed: 02/03/18 11:45> Phys Exam - Physical Examination Constitutional: NAD HEENT: moist MMs, sclera anicteric Neck: no JVD, supple, full ROM Respiratory: no wheezing, no rhonchi, clear to auscultation bilateral mild bibasilar rales Cardiovascular: RRR, no significant murmur Gastrointestinal: soft, non-tender, no distention Musculoskeletal: no edema, pulses present Neurological: non-focal, normal sensation, moves all 4 limbs Psychiatric: normal affect, A&O x 3 <Fredy Geiger - Last Filed: 02/03/18 08:44> Dx/Plan (1) Acute on chronic systolic heart failure Code(s): I50.23 - ACUTE ON CHRONIC SYSTOLIC (CONGESTIVE) HEART FAILURE Status : Acute (2) End stage liver disease Code(s): K72.90 - HEPATIC FAILURE, UNSPECIFIED WITHOUT COMA Status: Chronic (3) CKD (chronic kidney disease), stage III Code(s): N18.3 - CHRONIC KIDNEY DISEASE, STAGE 3 (MODERATE) Status: Chronic (4) Coronary artery disease Code(s): I25.10 - ATHSCL HEART DISEASE OF [place] CORONARY ARTERY W/O ANG PCTRS Status: Chronic (5) DM type 2 (diabetes mellitus, type 2) Status: Chronic QualifierTitle: Diabetes mellitus fpc insulin use: with termite inspector use Diabetes mellitus complication status: with kidney complications Diabetes mellitus complication detail: with chronic kidney disease Chronic kidney disease stage: stage 3 (moderate) Qualified Code(s): E11.22 - Type 2 diabetes mellitus with diabetic chronic kidney disease; N18.3 - Chronic kidney disease, stage 3 (moderate); N18.3 - Chronic kidney disease, stage 3 (moderate) ; N18.3 - Chronic kidney disease, stage 3 (moderate); Z79.4 - shelter (current ) use of insulin; Z79.4 - shelter (current) use of insulin; Z79.4 - shelter (current) use of insulin; Z79.4 - shelter (current) use of insulin (6) HTN (hypertension) Code(s): I10 - ESSENTIAL (PRIMARY) HYPERTENSION Status: Chronic (7) Hepatitis C Code(s): B19.20 - UNSPECIFIED VIRAL HEPATITIS C WITHOUT HEPATIC COMA Status: Chronic (8) Noncompliance Code(s): Z91.19 - PATIENT'S NONCOMPLIANCE W OTH MEDICAL TREATMENT AND REGIMEN Status: Chronic - Plan Plan: 1) Acute on Chronic Heart Failure-resolved Patient presented with two day history of worsening dyspnea. Known history of noncompliance. Fiance states that he does not take his medications as he should and they were unable to find his inhaler. Pt under hospice care with [facility] prior to admission. Hospice consulted in the ED, with patient' s hx of diverting pain medications and loss of 2 wks of pain medications, they recommended admitting patient to hospital before they accept him back to hospice. - Slightly increased NC O2 need to maintain adequate O2 sats initially, currently at baseline - Continue supplemental O2, prn q4h duonebs - Continue home lasix, spironolactone, and metolazone - Palliative care and hospice team consulted, appreciate recommendations - has remained at baseline, O2 sats are 96% on RA - PC RN on case and it looking [facility] see [facility] now that they have found him a more reliable/monitored living situation 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 - see above (7) Bipolar Disorder - Continue home meds <Fredy Geiger - Last Filed: 02/03/18 08:44> (1) Acute on chronic systolic heart failure Code(s): I50.23 - ACUTE ON CHRONIC SYSTOLIC (CONGESTIVE) HEART FAILURE Status : Acute (2) End stage liver disease Code(s): K72.90 - HEPATIC FAILURE, UNSPECIFIED WITHOUT COMA Status: Chronic (3) CKD (chronic kidney disease), stage III Code(s): N18.3 - CHRONIC KIDNEY DISEASE, STAGE 3 (MODERATE) Status: Chronic (4) Coronary artery disease Code(s): I25.10 - ATHSCL HEART DISEASE OF [place] CORONARY ARTERY W/O ANG PCTRS Status: Chronic (5) DM type 2 (diabetes mellitus, type 2) Status: Chronic Qualifiers: Diabetes mellitus termite inspector insulin use: with termite inspector use Diabetes mellitus complication status: with kidney complications Diabetes mellitus complication detail: with chronic kidney disease Chronic kidney disease stage : stage 3 (moderate) Qualified Code(s): E11.22 - Type 2 diabetes mellitus with diabetic chronic kidney disease; N18.3 - Chronic kidney disease, stage 3 ( moderate); N18.3 - Chronic kidney disease, stage 3 (moderate); N18.3 - Chronic kidney disease, stage 3 (moderate); Z79.4 - termite control service representative (current) use of insulin; Z79.4 - termite control service representative (current) use of insulin; Z79.4 - termite control service representative (current) use of insulin; Z79.4 - shelter (current) use of insulin (6) HTN (hypertension) Code(s): I10 - ESSENTIAL (PRIMARY) HYPERTENSION Status: Chronic (7) Hepatitis C Code(s): B19.20 - UNSPECIFIED VIRAL HEPATITIS C WITHOUT HEPATIC COMA Status: Chronic Qualifiers: (8) Noncompliance Code(s): Z91.19 - PATIENT'S NONCOMPLIANCE W OTH MEDICAL TREATMENT AND REGIMEN Status: Chronic <Enedina Abdi - Last Filed: 02/03/18 11:45> Attending Addendum - Attending Addendum Date/Time: 02/03/18 1144 I personally evaluated the patient and discussed the management with Dr. Fuchs and Dr. Geiger I agree with the History, Examination, Assessment and Plan documented above with any addition or exceptions noted below. Stable and unchanged. Hospice pending patient's family/friends. Will continue treatment based on patients compliance. ABrayMD <Enedina Abdi - Last Filed: 02/03/18 11:45>
[2018-02-03] MEDS: Allopurinol 100 MG TAB PO SCH (09:00)
[2018-02-03] MEDS: Carvedilol 6.25 MG TAB PO SCH ×2 (09:00→16:20)
[2018-02-03] MEDS: Furosemide 80 MG TAB PO SCH ×2 (09:01→13:40)
[2018-02-03] MEDS: Potassium Chloride 20 MEQ TAB PO SCH (09:01)
[2018-02-03] MEDS: Cyanocobalamin (Vitamin B-12) 1,000 MCG TAB PO SCH (09:01)
[2018-02-03] MEDS: risperiDONE 0.25 MG TAB PO SCH (09:01)
[2018-02-03] MEDS: Lisinopril 5 MG TAB PO SCH (09:01)
[2018-02-03] MEDS: Spironolactone 25 MG TAB PO SCH (09:02)
[2018-02-03] MEDS: HYDROcodone/Acetaminophen 10/325 mg Tablet PO PRN ×4 (10:01→21:45)
[2018-02-03] MEDS ORDERED: HYDROcodone/Acetaminophen 10/325 mg Tablet PO PRN (11:33)
[2018-02-03] MEDS: Insulin Glargine 40 UNITS in Pre-Filled Syringe 1 EACH SC SCH (21:47)
--- NOTE | 2018-02-04 08:01 | PDOC.FM ---
- Subjective Subjective: RHETT is not very communicative this morning. Complains of continued breakthrough pain even on [place] q4h but still refuses IV access. - Objective MAR Reviewed: Yes Vital Signs & Weight: Weight Weight 89.358 kg I&O: 02/03/18 02/04/18 02/05/18 06:59 06:59 06:59 Intake Total 800 960 Output Total 2 Balance 800 958 Result Diagrams: 02/01/18 06:47 02/01/18 06:47 Phys Exam - Physical Examination Constitutional: NAD awake but appears lethargic mild diffuse wheezing and decrease BS Cardiovascular: RRR, no significant murmur Gastrointestinal: soft, non-tender, positive bowel sounds Musculoskeletal: edema present Neurological: non-focal, moves all 4 limbs Dx/Plan (1) Acute on chronic systolic heart failure Code(s): I50.23 - ACUTE ON CHRONIC SYSTOLIC (CONGESTIVE) HEART FAILURE Status : Acute (2) End stage liver disease Code(s): K72.90 - HEPATIC FAILURE, UNSPECIFIED WITHOUT COMA Status: Chronic (3) CKD (chronic kidney disease), stage III Code(s): N18.3 - CHRONIC KIDNEY DISEASE, STAGE 3 (MODERATE) Status: Chronic (4) Coronary artery disease Code(s): I25.10 - ATHSCL HEART DISEASE OF [place] CORONARY ARTERY W/O ANG PCTRS Status: Chronic (5) DM type 2 (diabetes mellitus, type 2) Status: Chronic Qualifiers: Diabetes mellitus ferry terminal agent insulin use: with ferry terminal agent use Diabetes mellitus complication status: with kidney complications Diabetes mellitus complication detail: with chronic kidney disease Chronic kidney disease stage : stage 3 (moderate) Qualified Code(s): E11.22 - Type 2 diabetes mellitus with diabetic chronic kidney disease; N18.3 - Chronic kidney disease, stage 3 ( moderate); N18.3 - Chronic kidney disease, stage 3 (moderate); N18.3 - Chronic kidney disease, stage 3 (moderate); Z79.4 - care home (current) use of insulin; Z79.4 - termite technician (current) use of insulin; Z79.4 - termite technician (current) use of insulin; Z79.4 - termite technician (current) use of insulin (6) HTN (hypertension) Code(s): I10 - ESSENTIAL (PRIMARY) HYPERTENSION Status: Chronic (7) Hepatitis C Code(s): B19.20 - UNSPECIFIED VIRAL HEPATITIS C WITHOUT HEPATIC COMA Status: Chronic Qualifiers: (8) Noncompliance Code(s): Z91.19 - PATIENT'S NONCOMPLIANCE W OTH MEDICAL TREATMENT AND REGIMEN Status: Chronic - Plan Plan: (1) End stage HF with exacerbation, resolved: presented with 2 days of worsening dyspnea after suspected medication noncompliance. O2 requirement now back to baseline. Neb treatments prn. Palliative/Hospice teams consulted in the ED -- with patient's hx of diverting pain medications and loss of 2 wks of pain medications, pt was fired by [facility]. We have been struggling to find a different hospice agency to provide care upon discharge. Continue home lasix, spironolactone, and metolazone. Family meeting scheduled for Tuesday. If patient can go to a different more stable living situation, he will possibly be accepted back by [facility]. (2) End-Stage Liver Disease due to chronic hepatitis C: Ammonia levels high; patient refuses to take his lactulose regularly and likely thus has a large degree of encephalopathy ongoing. (3) Type 2 DM: continue home long-acting insulin; minimize accucheks and SSI (4) CAD: continue home medications. (5) CKD Stage 3 (6) Bipolar Disorder: Cont. risperidone.
[2018-02-04] MEDS: Spironolactone 25 MG TAB PO SCH (09:34)
[2018-02-04] MEDS: risperiDONE 0.25 MG TAB PO SCH (09:34)
[2018-02-04] MEDS: Carvedilol 6.25 MG TAB PO SCH ×2 (09:35→17:22)
[2018-02-04] MEDS: Allopurinol 100 MG TAB PO SCH (09:35)
[2018-02-04] MEDS: Furosemide 80 MG TAB PO SCH ×2 (09:35→15:02)
[2018-02-04] MEDS: Lisinopril 5 MG TAB PO SCH (09:35)
[2018-02-04] MEDS: Cyanocobalamin (Vitamin B-12) 1,000 MCG TAB PO SCH (09:35)
[2018-02-04] MEDS: Potassium Chloride 20 MEQ TAB PO SCH (09:35)
[2018-02-04] MEDS: Metolazone 2.5 MG TAB PO SCH (09:36)
[2018-02-04] MEDS: HYDROcodone/Acetaminophen 10/325 mg Tablet PO PRN (09:39)
[2018-02-04] MEDS: Insulin Glargine 40 UNITS in Pre-Filled Syringe 1 EACH SC SCH (21:08)
[2018-02-05] MEDS: Carvedilol 6.25 MG TAB PO SCH ×2 (08:01→18:12)
[2018-02-05] MEDS: Furosemide 80 MG TAB PO SCH ×2 (08:01→14:13)
[2018-02-05] MEDS: Allopurinol 100 MG TAB PO SCH (08:01)
[2018-02-05] MEDS: Cyanocobalamin (Vitamin B-12) 1,000 MCG TAB PO SCH (08:01)
[2018-02-05] MEDS: Lisinopril 5 MG TAB PO SCH (08:02)
[2018-02-05] MEDS: Potassium Chloride 20 MEQ TAB PO SCH (08:02)
[2018-02-05] MEDS: risperiDONE 0.25 MG TAB PO SCH (08:02)
[2018-02-05] MEDS: Spironolactone 25 MG TAB PO SCH (08:03)
--- NOTE | 2018-02-05 09:39 | PDOC.FM ---
- Subjective Subjective: Calm and polite this morning. No issues overnight per staff. Still intermittently altered. Sleeping frequently. - Objective MAR Reviewed: Yes Vital Signs & Weight: Vital Signs (12 hours) Temp Pulse Resp BP Pulse Ox 02/05/18 08:02 75 02/05/18 07:34 97.5 F L 75 16 145/88 H 93 L Weight Weight 89.358 kg I&O: 02/04/18 02/05/18 02/06/18 06:59 06:59 06:59 Intake Total 960 237 Output Total 2 Balance 958 237 Result Diagrams: 02/01/18 06:47 02/01/18 06:47 Phys Exam - Physical Examination Constitutional: NAD drowsy but can answer simple questions Respiratory: clear to auscultation bilateral Cardiovascular: no significant murmur, gallop (S4) Gastrointestinal: soft, non-tender, positive bowel sounds Musculoskeletal: no edema, pulses present Neurological: non-focal, moves all 4 limbs Skin: no rash Dx/Plan (1) Acute on chronic systolic heart failure Code(s): I50.23 - ACUTE ON CHRONIC SYSTOLIC (CONGESTIVE) HEART FAILURE Status : Acute (2) End stage liver disease Code(s): K72.90 - HEPATIC FAILURE, UNSPECIFIED WITHOUT COMA Status: Chronic (3) CKD (chronic kidney disease), stage III Code(s): N18.3 - CHRONIC KIDNEY DISEASE, STAGE 3 (MODERATE) Status: Chronic (4) Coronary artery disease Code(s): I25.10 - ATHSCL HEART DISEASE OF [place] CORONARY ARTERY W/O ANG PCTRS Status: Chronic (5) DM type 2 (diabetes mellitus, type 2) Status: Chronic Qualifiers: Diabetes mellitus termite inspector insulin use: with termite inspector use Diabetes mellitus complication status: with kidney complications Diabetes mellitus complication detail: with chronic kidney disease Chronic kidney disease stage : stage 3 (moderate) Qualified Code(s): E11.22 - Type 2 diabetes mellitus with diabetic chronic kidney disease; N18.3 - Chronic kidney disease, stage 3 ( moderate); N18.3 - Chronic kidney disease, stage 3 (moderate); N18.3 - Chronic kidney disease, stage 3 (moderate); Z79.4 - superintendent marine oil terminal (current) use of insulin; Z79.4 - superintendent marine oil terminal (current) use of insulin; Z79.4 - superintendent marine oil terminal (current) use of insulin; Z79.4 - superintendent marine oil terminal (current) use of insulin (6) HTN (hypertension) Code(s): I10 - ESSENTIAL (PRIMARY) HYPERTENSION Status: Chronic (7) Hepatitis C Code(s): B19.20 - UNSPECIFIED VIRAL HEPATITIS C WITHOUT HEPATIC COMA Status: Chronic Qualifiers: (8) Noncompliance Code(s): Z91.19 - PATIENT'S NONCOMPLIANCE W OTH MEDICAL TREATMENT AND REGIMEN Status: Chronic - Plan Plan: (1) End stage HF with exacerbation, resolved: presented with 2 days of worsening dyspnea after suspected medication noncompliance. O2 requirement now back to baseline. Neb treatments prn. Palliative/Hospice teams consulted in the ED -- with patient's hx of diverting pain medications and loss of 2 wks of pain medications, pt was fired by [facility]. We have been struggling to find a different hospice agency to provide care upon discharge. Continue home lasix, spironolactone, and metolazone. Family meeting scheduled for Tuesday at 10am. If patient can go to a different, more stable living situation, he will possibly be accepted back by [facility]. (2) End-Stage liver Disease due to chronic hepatitis C: Ammonia levels high; patient not always consistent with taking his lactulose regularly and likely thus has a large degree of ongoing encephalopathy. (3) Type 2 DM: continue home long-acting insulin; minimize accucheks and SSI (4) CAD: continue home medications. (5) CKD Stage 3 (6) Bipolar Disorder: Cont. risperidone. Pt essentially status quo. Hopefully we can have a firm disposition after family meeting tomorrow morning.
[2018-02-05] MEDS: HYDROcodone/Acetaminophen 10/325 mg Tablet PO PRN ×2 (11:59→19:39)
--- NOTE | 2018-02-05 18:22 | ADD-PRG ---
ADDENDUM Please see the note from Dr. Fuchs for which I agree. The patient was seen, evaluated, examined and discussed by the bedside with the residents. This is an unfortunate 47-year-old with end-stage cirrh osis with history of polysubstance abuse, heart disease, just numerous medical problems which he has been on hospice, but it sounds like hospice agency basically fired him because of the opiates being m issing in his house and then he was symptomatic with dyspnea, so he came to the hospital. Intermitte ntly refusing lactulose, although it sounds like intermittent encephalopathy. Right now, I am trying to figure out placement. We will get him back on all his home medications and sounds like he is sta ble and back to baseline. Not really complaining this morning, although really was not very cooperat marshall with exam or discussing anything, so the plan right now mostly trying to figure out placement. W e will continue the same medications.
--- NOTE | 2018-02-05 18:25 | ADD-PRG ---
DATE OF SERVICE: 02/05/2018 ADDENDUM Please see the note from Dr. Les Fuchs for which I agree. The patient was seen and evaluated, exa mined and discussed with the residents by bedside, basically no changes. Still a little bit encephal opathic, but he has occasionally refusing lactulose, everything else is stable and basically we are t rying to find placement for him for home hospice care for his end-stage cirrhosis and liver disease, and so once we find a safe place for placement and ideally hospice care situation then we will be abl e to be discharged.
[2018-02-05] MEDS: Insulin Glargine 40 UNITS in Pre-Filled Syringe 1 EACH SC SCH (21:04)
--- NOTE | 2018-02-06 06:13 | PDOC.FM ---
- Subjective Subjective: RHETT Long seen at bedside this morning. There were no acute events overnight, nurse states that patient was slightly more disoriented overnight but otherwise fine. He has no complaints this morning. - Objective MAR Reviewed: Yes Vital Signs & Weight: Vital Signs (12 hours) Temp Pulse Resp BP Pulse Ox 02/05/18 20:00 98.1 F 86 16 144/98 H 94 L 02/05/18 18:22 76 12 94 L Weight Weight 89.358 kg I&O: 02/04/18 02/05/18 02/06/18 06:59 06:59 06:59 Intake Total 960 237 480 Output Total 2 Balance 958 237 480 Result Diagrams: 02/01/18 06:47 02/01/18 06:47 <Fredy Geiger - Last Filed: 02/06/18 08:14> - Objective Vital Signs & Weight: Vital Signs (12 hours) Temp Pulse Resp BP Pulse Ox 02/06/18 08:00 97.5 F L 76 20 02/06/18 07:29 97.5 F L 76 20 142/96 H 96 Weight Weight 89.358 kg I&O: 02/05/18 02/06/18 02/07/18 06:59 06:59 06:59 Intake Total 237 480 Balance 237 480 Result Diagrams: 02/01/18 06:47 02/01/18 06:47 <Flavio Mckeon - Last Filed: 02/06/18 11:13> Phys Exam - Physical Examination Constitutional: NAD HEENT: moist MMs, sclera anicteric Neck: no JVD, supple, full ROM Respiratory: no wheezing, no rales, no rhonchi, clear to auscultation bilateral Cardiovascular: RRR, no significant murmur Gastrointestinal: soft, non-tender, no distention Musculoskeletal: pulses present, edema present Neurological: non-focal, normal sensation, moves all 4 limbs Psychiatric: A&O x 3 Skin: no rash <Fredy Geiger - Last Filed: 02/06/18 08:14> Dx/Plan (1) Acute on chronic systolic heart failure Code(s): I50.23 - ACUTE ON CHRONIC SYSTOLIC (CONGESTIVE) HEART FAILURE Status : Acute (2) End stage liver disease Code(s): K72.90 - HEPATIC FAILURE, UNSPECIFIED WITHOUT COMA Status: Chronic (3) CKD (chronic kidney disease), stage III Code(s): N18.3 - CHRONIC KIDNEY DISEASE, STAGE 3 (MODERATE) Status: Chronic (4) Coronary artery disease Code(s): I25.10 - ATHSCL HEART DISEASE OF [place] CORONARY ARTERY W/O ANG PCTRS Status: Chronic (5) DM type 2 (diabetes mellitus, type 2) Status: Chronic QualifierTitle: Diabetes mellitus termite helper insulin use: with custodial use Diabetes mellitus complication status: with kidney complications Diabetes mellitus complication detail: with chronic kidney disease Chronic kidney disease stage: stage 3 (moderate) Qualified Code(s): E11.22 - Type 2 diabetes mellitus with diabetic chronic kidney disease; N18.3 - Chronic kidney disease, stage 3 (moderate); N18.3 - Chronic kidney disease, stage 3 (moderate) ; N18.3 - Chronic kidney disease, stage 3 (moderate); Z79.4 - longterm (current ) use of insulin; Z79.4 - termite helper (current) use of insulin; Z79.4 - termite helper (current) use of insulin; Z79.4 - termite helper (current) use of insulin (6) HTN (hypertension) Code(s): I10 - ESSENTIAL (PRIMARY) HYPERTENSION Status: Chronic (7) Hepatitis C Code(s): B19.20 - UNSPECIFIED VIRAL HEPATITIS C WITHOUT HEPATIC COMA Status: Chronic (8) Noncompliance Code(s): Z91.19 - PATIENT'S NONCOMPLIANCE W OTH MEDICAL TREATMENT AND REGIMEN Status: Chronic - Plan Plan: (1) End stage HF with exacerbation, resolved: Presented with 2 days of worsening dyspnea after suspected medication noncompliance. O2 requirement now back to baseline. Neb treatments prn. Palliative/Hospice teams consulted in the ED -- with patient's hx of diverting pain medications and loss of 2 wks of pain medications, pt was fired by [facility]. We have been struggling to find a different hospice agency to provide care upon discharge. Continue home lasix, spironolactone, and metolazone. Family meeting scheduled for Tuesday at 10am. If patient can go to a different, more stable living situation, he will possibly be accepted back by [facility]. (2) End-Stage liver Disease due to chronic hepatitis C: Ammonia levels high; patient not always consistent with taking his lactulose regularly and likely thus has a large degree of ongoing encephalopathy. (3) Type 2 DM: Continue home long-acting insulin; minimize accucheks and SSI (4) CAD: Continue home medications. (5) CKD Stage 3 (6) Bipolar Disorder: Cont. risperidone. Pt essentially status quo. Hopefully we can have a firm disposition after family meeting today and after eval from [facility]. <Fredy Geiger - Last Filed: 02/06/18 08:14> Attending Addendum - Attending Addendum Date/Time: 02/06/18 1110 I personally evaluated the patient and discussed the management with Dr. Geiger I agree with the History, Examination, Assessment and Plan documented above with any addition or exceptions noted below.Patient has recovered from acute episode. History of end stage HF with EF 10 % patient( previous Not candidate for transplant consideration) remains encephalopathic accepted to NH with hospice Discussed with Sister (POA) and family this am. <Flavio Mckeon - Last Filed: 02/06/18 11:13>
[2018-02-06] MEDS: Carvedilol 6.25 MG TAB PO SCH ×2 (07:57→16:50)
[2018-02-06] MEDS: Spironolactone 25 MG TAB PO SCH (07:58)
[2018-02-06] MEDS: Cyanocobalamin (Vitamin B-12) 1,000 MCG TAB PO SCH (07:58)
[2018-02-06] MEDS: Furosemide 80 MG TAB PO SCH ×2 (07:58→14:17)
[2018-02-06] MEDS: risperiDONE 0.25 MG TAB PO SCH (07:58)
[2018-02-06] MEDS: Lisinopril 5 MG TAB PO SCH (07:58)
[2018-02-06] MEDS: Allopurinol 100 MG TAB PO SCH (07:58)
[2018-02-06] MEDS: Potassium Chloride 20 MEQ TAB PO SCH (07:59)
--- NOTE | 2018-02-06 13:13 | DIS-2 ---
DATE OF ADMISSION: 01/31/2018 DATE OF DISCHARGE: 02/06/2018 RESIDENT: Fredy Geiger M.D. ADMITTING ATTENDING: Dr. Enedina Abdi DISCHARGE ATTENDING: Dr. Flavio Mckeon CONSULTS: 1. Case management, 01/31/2018. 2. Palliative care, 01/31/2018. PROCEDURES: Chest x-ray on 01/31/2018 : IMPRESSION: Heart size enlarged. There is pulmonary vascular congestion with probable small effusions. No pneumothoraces or lumbar consolidations seen. Findings are suspicious for congestive heart failure. PRIMARY DIAGNOSES: Acute respiratory failure with hypoxia secondary to acute on chronic systolic heart failure. SECONDARY DIAGNOSIS: 1. End-stage liver disease. 2. Chronic kidney disease stage 3. 3. Coronary artery disease. 4. Noncompliance. 5. Hypertension. 6. Type 2 diabetes. DISCHARGE MEDICATIONS: Resume all home medications includin. Omeprazole, magnesium 20 mg p.o. daily. 2. Alprazolam 2 mg p.o. b.i.d. 3. [place] 10/325 1-2 tabs p.o. t.i.d. p.r.n. 4. Metolazone 2.5 mg p.o. daily. 5. Allopurinol 100 mg p.o. daily. 6. Aspirin 81 mg p.o. daily. 7. Carvedilol 12.5 mg p.o. b.i.d. with meals. 8. Cyanocobalamin 1000 mcg p.o. daily. 9. Ferrous sulfate 325 mg p.o. q.a.m. with meals. 10. Folic acid 1 mg p.o. daily. 11. Furosemide 80 mg p.o. b.i.d. 12. Lactulose 28 grams p.o. daily. 13. Lisinopril 5 mg p.o. daily. 14. Multivitamin 1 tab p.o. daily. 15. KCl 20 mEq p.o. daily. 16. Risperidone 0.5 mg p.o. daily. 17. Spironolactone 25 mg p.o. daily. HISTORY OF PRESENT ILLNESS/HOSPITAL COURSE: Ermias Long is a 47-year-old male with a past medical history of end-stage liver disease secondary to polysubstance abuse and chronic hepatitis C who is on hospice care, history of heart failure with reduced ejection fraction, history of polysubstance abuse, history of CKD stage 3, diabetes type 2, hyperlipidemia, and noncompliance, who was brought to the ED by his Cornelia mathew, because he was short of breath and they could not find his home albuterol. The onset of the dyspnea was 2 days ago. Audra provided much of the history in the ED because the patient was not cooperative. The patient had been admitted in the past for fluid overload. According to ER record, the patient was confirmed DNR. Admitting team was unable to obtain a history from the patient because he was noncooperative. The ER doctor consulted palliative care and hospice care in the ED. They were able to contact the patient's hospital agency, [facility], who said that the patient had 2 weeks' worth of pain medications missing in his house and that he has a history of diverting his pain medications and he had been fired from 4-5 previous hospice agencies for that reason. The patient was admitted because of a slight increase in oxygen requirement from baseline and minimal fluid overload. The patient has a history of noncompliance of the medications which was likely the reason for his worsening dyspnea and his mild fluid overload. All home medications were continued and no additional medicines were added. The patient had an initial ammonia of 99 and it was likely thought that the patient was probably encephalopathic from elevated ammonia from hepatic disease. The patient's hospital admission was prolonged as a result of the patient waiting to be reaccepted to a hospice agency. It was obvious that the patient has severe decline secondary to worsening congestive heart failure and worsening hepatic failure. He was encephalopathic for most of the admission and refused many of his home medications daily. The patient was fired from [facility] as a result of inability to recover missing medication. The patient was declined from a couple of hospice agencies during his stay due to patient not having a reliable home situation. Later in the admission, it was the patient's Cornelia mathew, the patient's fibrian?e's daughter said that the patient can come live with them. The patient's fibrian?e's his daughter works for the [employer] department and [facility] stated that they would come evaluate the patient again now that the patient has a better plan for care at home. The patient was evaluated by [facility] on 02/06/2018. The patient was accepted to [facility] on 02/06/2018 after a morning meeting and the patient's medical power of deputy county attorney who was a sister was able to attend as well as his fiancee, Cornelia. Patient discharge was prolonged secondary to placement issue. Patient was cleared for discharge home with hospice care on 02/06/18. After the order had been placed for discharge family did not feel comfortable with taking him home and decided a prison was what they wanted. The patient was then evaluated for prison placement on 02/07 and 02/08. The patient has had difficulty with being accepted to prison's in past because of behavior issues. The prison is still evaluating his case and working on getting acceptance with insurance company. Patient was discharged and left the hospital on 02/08 with the plan to go home with hospice until a prison will accept him. DISPOSITION: Poor. The patient has advanced and worsening congestive heart failure and hepatic failure. Continued hospice is the best option for the patient moving forward. DISCHARGE INSTRUCTIONS: 1. Location: Relative's home with continued hospice care. 2. Diet: Regular. 3. Activity: As tolerated. 4. Followup: Follow up as needed with primary care provider. CAMMIE
[2018-02-06] MEDS: HYDROcodone/Acetaminophen 10/325 mg Tablet PO PRN (16:50)
[2018-02-06] MEDS: Insulin Regular 300 UNITS/3 ML VIAL SC PRN (17:15)
[2018-02-06] MEDS: Insulin Glargine 40 UNITS in Pre-Filled Syringe 1 EACH SC SCH (20:46)
[2018-02-07] MEDS: Allopurinol 100 MG TAB PO SCH ×2 (08:11→08:22)
[2018-02-07] MEDS: Spironolactone 25 MG TAB PO SCH ×2 (08:11→08:23)
[2018-02-07] MEDS: Cyanocobalamin (Vitamin B-12) 1,000 MCG TAB PO SCH ×2 (08:12→08:23)
[2018-02-07] MEDS: risperiDONE 0.25 MG TAB PO SCH ×2 (08:12→08:19)
[2018-02-07] MEDS: Potassium Chloride 20 MEQ TAB PO SCH ×2 (08:12→08:23)
[2018-02-07] MEDS: Furosemide 80 MG TAB PO SCH ×3 (08:12→13:26)
[2018-02-07] MEDS: Lisinopril 5 MG TAB PO SCH ×2 (08:12→08:23)
[2018-02-07] MEDS: Carvedilol 6.25 MG TAB PO SCH ×3 (08:12→16:57)
[2018-02-07] MEDS: Metolazone 2.5 MG TAB PO SCH ×2 (08:13→08:22)
[2018-02-07] MEDS: HYDROcodone/Acetaminophen 10/325 mg Tablet PO PRN (16:56)
[2018-02-07] MEDS: Insulin Regular 300 UNITS/3 ML VIAL SC PRN (17:01)
[2018-02-07] MEDS: Insulin Glargine 40 UNITS in Pre-Filled Syringe 1 EACH SC SCH (21:16)
[2018-02-07 21:47] VITALS: TEMP 97.6
[2018-02-08] MEDS: HYDROcodone/Acetaminophen 10/325 mg Tablet PO PRN ×2 (07:51→13:22)
[2018-02-08] MEDS: Carvedilol 6.25 MG TAB PO SCH (08:10)
[2018-02-08] MEDS: Furosemide 80 MG TAB PO SCH ×2 (08:10→13:22)
[2018-02-08] MEDS: Cyanocobalamin (Vitamin B-12) 1,000 MCG TAB PO SCH (08:11)
[2018-02-08] MEDS: Allopurinol 100 MG TAB PO SCH (08:11)
[2018-02-08] MEDS: Lisinopril 5 MG TAB PO SCH (08:11)
[2018-02-08] MEDS: Spironolactone 25 MG TAB PO SCH (08:11)
[2018-02-08] MEDS: Potassium Chloride 20 MEQ TAB PO SCH (08:11)
[2018-02-08] MEDS: risperiDONE 0.25 MG TAB PO SCH (08:11)
[2018-02-08 11:05] VITALS: BP 128/91
[2018-02-08] MEDS: Insulin Regular 300 UNITS/3 ML VIAL SC PRN (11:23)
[2018-02-08] MEDS ORDERED: Ondansetron HCl/PF 4 MG/2 ML Vial IVP PRN (11:37)
--- NOTE | 2018-02-09 09:17 | PDOC.EVN ---
Event Note - Event Note Event Note: Event Note for 929 on 02/08: Lynn Long's hospital stay has been prolonged by changes in patient/family decisions and difficulty with placement. Patient was accepted by [facility] on 02/06/18 and the order for discharge home with hospice was placed. Prior to leaving, patient's family then decided that they did not feel comfortable with patient going home and they requested that he go to a custodial. He was evaluated by nursing homes and then patient refused to be put into a facility. On 02/08, he and family decided they wanted to go home and he was discharged from the hospital and went [facility] with [facility].
== END 2018-02-08 14:27 | disposition hospice, home (50) | DRG 291 ==
LOC: ERS 07:06 → 2SE 13:19 → OBSVTOIN 13:19 → T4-A 02-04 14:23
PROVIDERS: ADMIT Student in an Organized Health Care Education/Training Program; ATTEND Student in an Organized Health Care Education/Training Program
DX: I13.0 Hypertensive heart and chronic kidney disease with heart failure and stage 1 through stage 4 chronic kidney disease, or unspecified chronic kidney disease (principal); I50.23 Acute on chronic systolic (congestive) heart failure; E11.22 Type 2 diabetes mellitus with diabetic chronic kidney disease; N18.3 Chronic kidney disease, stage 3 (moderate); Z53.29 Procedure and treatment not carried out because of patient's decision for other reasons; J44.9 Chronic obstructive pulmonary disease, unspecified; K72.90 Hepatic failure, unspecified without coma; Z66 Do not resuscitate; Z51.5 Encounter for palliative care; B18.2 Chronic viral hepatitis C; I25.10 Atherosclerotic heart disease of native coronary artery without angina pectoris; K74.69 Other cirrhosis of liver; F41.9 Anxiety disorder, unspecified; F31.9 Bipolar disorder, unspecified; F12.10 Cannabis abuse, uncomplicated; E78.5 Hyperlipidemia, unspecified; F17.210 Nicotine dependence, cigarettes, uncomplicated; F20.9 Schizophrenia, unspecified; Z88.4 Allergy status to anesthetic agent; Z88.6 Allergy status to analgesic agent; Z88.5 Allergy status to narcotic agent; I25.2 Old myocardial infarction; Z79.82 Long term (current) use of aspirin; Z79.4 Long term (current) use of insulin; Z79.899 Other long term (current) drug therapy; Z91.81 History of falling; Z87.19 Personal history of other diseases of the digestive system; Z95.5 Presence of coronary angioplasty implant and graft; Z91.19 Patient's noncompliance with other medical treatment and regimen
CPT/HCPCS: 36415; 36416; 71045; 80048; 80053; 82140; 83880; 85025; 93005; 94640; J0360; J1815; J2270; J2405; J7620

== ENCOUNTER 2018-02-19 07:09 | Emergency (ER) | payer OTHER | END 2018-02-19 08:04 | disposition home or self-care (01) | LOC: ERS 07:09 | DX: K72.90 Hepatic failure, unspecified without coma (principal); I13.2 Hypertensive heart and chronic kidney disease with heart failure and with stage 5 chronic kidney disease, or end stage renal disease; I50.9 Heart failure, unspecified; N18.6 End stage renal disease; E11.22 Type 2 diabetes mellitus with diabetic chronic kidney disease; I25.2 Old myocardial infarction; E78.5 Hyperlipidemia, unspecified; I25.10 Atherosclerotic heart disease of native coronary artery without angina pectoris; D64.9 Anemia, unspecified; F41.9 Anxiety disorder, unspecified; F20.9 Schizophrenia, unspecified; F31.9 Bipolar disorder, unspecified; F17.210 Nicotine dependence, cigarettes, uncomplicated; Z79.899 Other long term (current) drug therapy; Z79.82 Long term (current) use of aspirin; Z79.4 Long term (current) use of insulin | CPT/HCPCS: 93005 ==

== ENCOUNTER 2018-02-22 12:24 | Day surgery (SDC) | payer MEDICAID ==
[2018-02-21 16:51] VITALS: BMI 33.5
--- NOTE | 2018-02-22 01:49 | HP ---
HISTORY OF PRESENT ILLNESS: Griffin Long is a 47-year-old black male who is on hospice for end-stage liver disease. The patient has been told he had liver cancer. He was last seen in the emergency [facility] m 02/19/2018 for abdominal pain and paracentesis. He was recently hospitalized at [facility] from 01/31/2018 to 02/08/2018 for palliative care initiation. I have been asked to see him regardi ng placement of a peritoneal catheter for decompression of ascites as he is making frequent trips to the emergency room in the hospital for admission for decompression. He goes to both [facility] and [facility] once every week or two. The patient has hepatitis C and cirrhosis with hepat itis B antibodies positive. On 12/21/2017, PT 16, INR 1.3, hemoglobin 11, white count 8, platelet co unt 168,000. Sodium 140, potassium 4.2, carbon dioxide 22, BUN 38, creatinine 2.07. GFR 63. Alpha fetoprotein was checked on 11/28/2015 was 15.9. ALLERGIES: He reports FENTANYL, TORADOL and IBUPROFEN. TOBACCO: Five cigarettes a day. ALCOHOL: None for 4 weeks, occasional use prior to that. MEDICATIONS: Prilosec 20 mg a day, alprazolam 2 mg b.i.d., [place] 10/325 p.r.n., metolazone 2.5 mg da angelito, allopurinol 100 mg daily, aspirin 81 mg daily, carvedilol 12.5 mg b.i.d. with meals, cyanocobala min 1000 mcg daily, ferrous sulfate 325 t.i.d. with meals, folic acid daily, furosemide 80 mg b.i.d., lactulose 28 mg daily, lisinopril 5 mg daily, multivitamins daily, potassium chloride 20 mEq daily, risperidone 0.5 mg daily, spironolactone 25 mg daily. PAST SURGICAL HISTORY: umbilical hernia repair after recurrence two days prior 08/07/2014 and 08/05/2014; on 09/05/2015, right inguinal hernia repair with mesh; multiple upper endoscopies, Dr. Lyman and Dr. Alvarez noting changes of portal hypertension and varices, he has been banded for these. PAST MEDICAL HISTORY: Portal hypertension, cirrhosis, esophageal varices, diabetes mellitus, hyperte nsion, chronic kidney disease, bipolar illness. The patient, on 11/21/2015, had a nuclear stress hilario t that was negative for ischemia with a 42% EF. He had a transthoracic echocardiogram on 08/22/2016, noting LV dilatation, global hypokinesis, mild tricuspid regurgitation, EF 25%. He does not see a c ardiologist routinely. REVIEW OF SYSTEMS: [place] otherwise noncontributory. FAMILY HISTORY: Noncontributory. SOCIAL HISTORY: The patient has been incarcerated from [id number]. He has a history of heroin IV use , cocaine use. PHYSICAL EXAMINATION: VITAL SIGNS: Weight 199 pounds, weight 5 foot 6 inches, blood pressure 130/88, heart rate 106, tempe rature 98.6 degrees. HEENT: Unremarkable. LUNGS: Clear to auscultation. CARDIAC: Regular rate and rhythm. ABDOMEN: Protuberant, positive fluid wave. Scars per above surgical history without herniation. EXTREMITIES: Palpable pulses. No ankle edema. Normal capillary refill. LYMPH: No lymphadenopathy. LABORATORY DATA: Total bilirubin is 0.7 on 01/31/2018. AST and ALT are 83 and 47 on 01/31/2018 resp ectively. Alkaline phosphatase 399 on 01/31/2018 . Alpha fetoprotein is noted above. ASSESSMENT AND PLAN: 1. End-stage liver disease with frequent ascites, noncompliant on medical therapy. Hospice has seen him. Alpha fetoprotein was elevated in 2015, we will recheck a level. He has been told he has live r cancer, but last CAT scan at [facility] was in 2017. Would agree with placement of perito mel catheter for palliation and patient will go on hospice care. 2. Diabetes mellitus, type 2, noncompliant. 3. Noncompliant on medications. 4. Bipolar illness. 5. Cardiomyopathy. Negative cardiac stress test, date noted above.
[2018-02-22] MEDS ORDERED: CEFAZOLIN/Water 2 GM/20 ML SYRINGE ONE (13:22)
[2018-02-22] MEDS ORDERED: Ketorolac Tromethamine 30 MG/ML VIAL ONE (13:22)
[2018-02-22 13:49] LABS: #Basophils 0.1 thou/uL (0.0-0.2); #Eosinphils 0.1 thou/uL (0.0-0.7); #Lymphocytes 1.8 thou/uL (1.20-3.40); #Monocytes 0.5 thou/uL (0.11-0.59); #Neutrophils 5.8 thou/uL (1.40-6.50); %Basophils 1.2 % (0.0-1.0); %Eosinophils 1.3 % (0.0-10.0); %Lymphocytes 21.5 % (21.0-51.0); %Monocytes 6.5 % (0.0-10.0); %Neutrophils 69.5 % (42.0-75.0); Hemoglobin 10.5 g/dL (14.0-18.0); Mean Corpuscular HGB CONC 35.2 g/dL (32.0-36.0); Mean Corpuscular Hemoglobin 31.8 pg (27.0-31.0); Mean Corpuscular Volume 90.4 fL (78.0-98.0); Mean Platelet Volume 8.1 fL (7.4-10.4); Platelet Count 189 thou/uL (130-400); White Blood Cell (WBC) Count 8.3 thou/uL (4.8-10.8)
[2018-02-22 14:12] LABS: Anion Gap 10 mmol/L (10-20); BUN (Urea Nitrogen) 31 mg/dL (8.9-20.6); Calc. Creatinine Clearance 56 mL/min (70-130); Calcium 7.7 mg/dL (7.8-10.44); Carbon Dioxide 23 mmol/L (22-29); Chloride 105 mmol/L (98-107); Estimated GFR-MDRD 40; Glucose 348 mg/dL (70-105); Potassium 4.7 mmol/L (3.5-5.1); Sodium 133 mmol/L (136-145)
[2018-02-22] MEDS ORDERED: Succinylcholine Chloride 20 MG/ML 10 ml SYRINGE FS ONE (14:43)
[2018-02-22] MEDS ORDERED: Lidocaine 1% PF 5 ML VIAL ONE (14:43)
[2018-02-22] MEDS ORDERED: PROPOFOL 200 MG/20 ML VIAL ONE (14:43)
[2018-02-22] MEDS ORDERED: Insulin Regular 300 UNITS/3 ML VIAL SC PRN (15:51)
[2018-02-22] MEDS ORDERED: Dextrose 50% Abboject 50 ML SYRINGE IVP PRN (15:51)
[2018-02-22] MEDS ORDERED: Dextrose 5% in Water 1,000 ML IV PRN (15:51)
[2018-02-22] MEDS ORDERED: Insulin Regular 300 UNITS/3 ML VIAL ONE (16:40)
[2018-02-22] MEDS ORDERED: Midazolam HCl 2 mg/2 ml Vial ONE (17:09)
[2018-02-22] MEDS ORDERED: Bupivacaine HCl 0.5%/Epinephrine 1:200,000/PF 30 ml Vial ONE (17:23)
[2018-02-22] MEDS ORDERED: Morphine 4 MG/ML VIAL ONE (17:25)
[2018-02-22] MEDS ORDERED: Morphine Sulfate 2 MG/ML SYRINGE SLOW IVP PRN (18:33)
[2018-02-22] MEDS ORDERED: Promethazine HCl 25 MG/ML VIAL SLOW IVP PRN (18:33)
[2018-02-22] MEDS ORDERED: Albuterol Sulfate 2.5 mg/3 ml Neb NEB SCH (19:00)
[2018-02-22] MEDS ORDERED: Albuterol Sulfate 1.25 MG/3 ML NEB ONE (19:12)
[2018-02-22] MEDS ORDERED: Labetalol HCl 100 MG/20 ML VIAL ONE (19:28)
--- NOTE | 2018-02-23 01:06 | OP ---
DATE OF OPERATION: 02/22/2018 PREOPERATIVE DIAGNOSES: End-stage liver disease, uncontrollable ascites, hepatitis B and C, history of liver cancer, hospice, request peritoneal drainage catheter to control his ascites, noncompliant o n medications. POSTOPERATIVE DIAGNOSES: End-stage liver disease, uncontrollable ascites, hepatitis B and C, history of liver cancer, hospice, request peritoneal drainage catheter to control his ascites, noncompliant on medications. PROCEDURE: Laparoscopic placement of pleural catheter kit PleurX. SURGEON: Aleksandr Granda M.D. ANESTHESIA: General. Local 0.5% Marcaine with epinephrine. SHIRT FINISHER: Max Ortega M.D. PROCEDURE IN DETAIL: The patient was taken to the operating room under general anesthesia, abdomen w as prepped with ChloraPrep, draped in routine fashion. Bilateral far lateral subcostal incision made and pneumoperitoneum to 15 mmHg obtained. With the Veress needle, we replaced it with a 5 port and video laparoscope inserted, contralateral 5 port placed. Ascites aspirated from the abdominal cavity . A 1500 mL aspirated. Local anesthetic infiltrated into the skin and subcutaneous tissue about the operative site. A counter incision was made in the right lower quadrant at the planned exit site an d another counter incision made periumbilical slightly more superior and using the [place] dissector , the catheter was tunneled, placing the cuff beneath the skin access site. The introducer sheath wa s then placed through this counterincision periumbilical and directed inferiorly and subcutaneous tis julisa penetrating the abdominal wall inferiorly, removing the dilator and then placing the catheter thr ough the pull-away sheath and the catheter grasped with a laparoscopic grasper direct into the pelvis . The pull-away sheath was removed. It was noted be in good position flushed with heparinized salin e solution. The caps applied. Sterile dressings applied. Subcutaneous tissues of all wounds approx imated with 4-0 Monocryl, skin with subdermal 4-0 Monocryl and DermaGlue applied.
--- NOTE | 2018-02-23 14:02 | EKG ---
Test Reason : PREOP Blood Pressure : / mmHG Vent. Rate : 095 BPM Atrial Rate : 095 BPM P-R Int : 142 ms QRS Dur : 094 ms QT Int : 386 ms P-R-T Axes : 068 -11 109 degrees QTc Int : 485 ms Normal sinus rhythm Inferior infarct , age undetermined cannot be excluded Non-specific intra-ventricular conduction delay T wave abnormality, consider lateral ischemia Prolonged QT Abnormal ECG Confirmed by AMOS SAN ([id number]) on 02/23/2018 2:02:02 PM Referred By: VLAD Confirmed By:AMOS SAN
== END 2018-02-22 20:40 | disposition home or self-care (01) ==
LOC: SDC 12:24
PROVIDERS: ATTEND Specialist
PROC: 0B9 Respiratory System, Drainage (ICD-10-PCS; principal; 2018-02-22)
DX: K72.90 Hepatic failure, unspecified without coma (principal); B15.9 Hepatitis A without hepatic coma; B19.20 Unspecified viral hepatitis C without hepatic coma; R18.8 Other ascites; F17.210 Nicotine dependence, cigarettes, uncomplicated; I12.9 Hypertensive chronic kidney disease with stage 1 through stage 4 chronic kidney disease, or unspecified chronic kidney disease; E11.22 Type 2 diabetes mellitus with diabetic chronic kidney disease; N18.9 Chronic kidney disease, unspecified; F41.9 Anxiety disorder, unspecified; F32.9 Major depressive disorder, single episode, unspecified; Z88.5 Allergy status to narcotic agent; Z88.8 Allergy status to other drugs, medicaments and biological substances; Z79.82 Long term (current) use of aspirin; Z79.899 Other long term (current) drug therapy
CPT/HCPCS: 36416; 80048; 85025; 93005; 93010; 96374; J0131; J0670; J1642; J1815; J1885; J2001; J2250; J2270; J2704

== ENCOUNTER 2018-04-16 11:03 | Emergency (ER) | payer MEDICAID, OTHER ==
[2018-04-16 11:40] LABS: #Basophils 0.1 thou/uL (0.0-0.2); #Eosinphils 0.1 thou/uL (0.0-0.7); #Monocytes 0.8 thou/uL (0.11-0.59); #Neutrophils 6.6 thou/uL (1.40-6.50); %Basophils 1.2 % (0.0-1.0); %Eosinophils 0.8 % (0.0-10.0); %Lymphocytes 20.9 % (21.0-51.0); %Monocytes 8.2 % (0.0-10.0); %Neutrophils 68.9 % (42.0-75.0); Mean Corpuscular HGB CONC 34.9 g/dL (32.0-36.0); Mean Corpuscular Hemoglobin 31.1 pg (27.0-31.0); Mean Corpuscular Volume 89.1 fL (78.0-98.0); Mean Platelet Volume 7.6 fL (7.4-10.4); Platelet Count 233 thou/uL (130-400); RBC Distribution Width 13.9 % (11.5-14.5); Red Blood Cell (RBC) Count 2.26 mill/uL (4.70-6.10); White Blood Cell (WBC) Count 9.6 thou/uL (4.8-10.8)
[2018-04-16 11:48] LABS: INR-International Normal Ratio 1.6; PTT 31.1 SEC (22.9-36.1); Prothrombin Time 18.7 SEC (12.0-14.7)
== END 2018-04-16 12:54 | disposition home or self-care (01) ==
LOC: ERS 11:03
DX: R18.8 Other ascites (principal); I13.0 Hypertensive heart and chronic kidney disease with heart failure and stage 1 through stage 4 chronic kidney disease, or unspecified chronic kidney disease; E11.22 Type 2 diabetes mellitus with diabetic chronic kidney disease; N18.9 Chronic kidney disease, unspecified; I50.9 Heart failure, unspecified; I25.2 Old myocardial infarction; B19.20 Unspecified viral hepatitis C without hepatic coma; E78.5 Hyperlipidemia, unspecified; D64.9 Anemia, unspecified; F31.9 Bipolar disorder, unspecified; F41.9 Anxiety disorder, unspecified; F17.210 Nicotine dependence, cigarettes, uncomplicated; Z79.899 Other long term (current) drug therapy; Z79.82 Long term (current) use of aspirin; Z79.4 Long term (current) use of insulin
CPT/HCPCS: 36415; 85025; 85610; 85730

== ENCOUNTER 2018-05-18 10:01 | Emergency (ER) | payer MEDICAID ==
[2018-05-18 11:21] LABS: Troponin I 0.045 ng/mL (< 0.028)
[2018-05-18 11:35] LABS: Bilirubin Negative (Negative); Blood, Urine Trace (Negative); Clarity CLOUDY (Clear); Glucose, Urine (Dipstick) Negative (Negative); Leukocyte Negative (Negative); Nitrite Negative (Negative); Protein, Urine (Dipstick) 100 mg/dL (Neg-Trace); Specific Gravity, Urine 1.014 (1.002-1.036)
[2018-05-18 11:44] LABS: Bacteria/HPF None Seen HPF (None Seen); RBC/HPF 0-3 HPF (0-3); WBC/HPF 0-3 HPF (0-3)
[2018-05-18 11:45] LABS: Crystals/HPF 2+ AMORPH URATES HPF (Negative); Hyaline Casts/LPF 0-3 HYALINE CAST LPF (0-3 Hyaline)
--- NOTE | 2018-05-18 11:52 | RAD ---
PORTABLE CHEST: Date: 05-18-18 Provided Clinical History: Fluid retention. FINDINGS: Evaluation is limited by patient motion. Comparison is made with the study dated 01-31-18. Cardiac silhouette remains enlarged. There is prominence of a pulmonary vasculature and pulmonary int erstitium. Linear attenuation difference overlies the right hemithorax laterally with lung markings s een peripheral to this, presumably reflecting a skin fold. No definite evidence for pneumothorax. The re is airspace disease suspected in the left upper and left midlung zones. IMPRESSION: Cardiomegaly and left upper lung zone airspace disease. Findings may reflect edema or pneumonia. Foll ow up is recommended. POS: LUDIN
== END 2018-05-18 12:30 | disposition home or self-care (01) ==
LOC: ERS 10:01
DX: R60.9 Edema, unspecified (principal); E11.9 Type 2 diabetes mellitus without complications; I25.2 Old myocardial infarction; I50.9 Heart failure, unspecified; D64.9 Anemia, unspecified; F41.9 Anxiety disorder, unspecified; F31.9 Bipolar disorder, unspecified; F20.9 Schizophrenia, unspecified; F17.210 Nicotine dependence, cigarettes, uncomplicated; I11.0 Hypertensive heart disease with heart failure; I25.10 Atherosclerotic heart disease of native coronary artery without angina pectoris; E78.5 Hyperlipidemia, unspecified; Z79.899 Other long term (current) drug therapy; Z79.82 Long term (current) use of aspirin; Z79.4 Long term (current) use of insulin
CPT/HCPCS: 71045; 81003; 81015; 84484; 93005

== ENCOUNTER 2018-05-18 17:52 | Inpatient (IN) | payer MEDICAID, OTHER ==
[2018-05-18 20:22] LABS: Hemoglobin 8.7 g/dL (14.0-18.0); Mean Corpuscular HGB CONC 32.8 g/dL (32.0-36.0); Mean Corpuscular Hemoglobin 30.8 pg (27.0-31.0); Mean Platelet Volume 9.1 fL (7.4-10.4); Platelet Count 167 thou/uL (130-400); RBC Distribution Width 18.7 % (11.5-14.5); Red Blood Cell (RBC) Count 2.81 mill/uL (4.70-6.10)
[2018-05-18 20:34] LABS: ALT (SGPT) 29 U/L (8-55); AST (SGOT) 72 U/L (5-34); Albumin 2.3 g/dL (3.5-5.0); Alkaline Phosphatase 183 U/L (40-150); Anion Gap 15 mmol/L (10-20); BUN (Urea Nitrogen) 111 mg/dL (8.9-20.6); Bilirubin, Total 2.5 mg/dL (0.2-1.2); CK (CPK) 272 U/L (30-200); Calc. Creatinine Clearance 0 mL/min (70-130); Calcium 8.4 mg/dL (7.8-10.44); Carbon Dioxide 20 mmol/L (22-29); Chloride 104 mmol/L (98-107); Estimated GFR-MDRD 20; Glucose 185 mg/dL (70-105); Potassium 4.9 mmol/L (3.5-5.1); Protein, Total 8.3 g/dL (6.0-8.3); Sodium 134 mmol/L (136-145)
[2018-05-18 20:35] LABS: Acetaminophen Less than 6.0 mcg/mL (10.0-30.0); Alcohol Less than 10 mg/dL (Less than 10); Salicylate Less than 8.0 mg/dL (15.0-30.0)
[2018-05-18 20:39] LABS: Troponin I 0.054 ng/mL (< 0.028)
[2018-05-18 20:47] LABS: Hypochromia SLIGHT = 6-15 cells (100X) (0-5/hpf); Lymphocytes 14 % (21-51); MDiff Complete? YES; Monocytes 1 % (0-10); Neutrophil 85 % (42-75); PLT Morphology Comment Appears Adequate; White Blood Cell (WBC) Count 8.1 thou/uL (4.8-10.8)
[2018-05-18 20:56] LABS: CKMB 11.9 ng/mL (0-6.6)
[2018-05-18] MEDS ORDERED: Furosemide 100 MG/10 ML VIAL ONE (21:13)
[2018-05-18 21:40] LABS: Actual Bicarbonate (HCO3a) 20.2 mEq/L (22-28); Analyzer IN Cardio ER; Base Excess (BEa) -3.3 mEq/L (-2.0 to +3.0); CO2 Tension 30.6 mmHg (35.0-45.0); Calcium, Ionized 1.13 mmol/L (1.12-1.30); Carboxyhemoglobin (COHb) 0.2 gm% (0.0-3.0); Hemoglobin (Hb) 9.4 g/dL (14.0-18.0); O2 Tension (PaO2) 146.8 mmHg (80.0-100.0); Potassium - ABG Lab 5.05 mmol/L (3.70-5.30); pH, Arterial 7.44 (7.35-7.45)
[2018-05-18 21:41] LABS: Bilirubin Negative (Negative); Blood, Urine Small (Negative); Clarity CLOUDY (Clear); Glucose, Urine (Dipstick) Negative (Negative); Leukocyte Small (Negative); Nitrite Negative (Negative); Protein, Urine (Dipstick) 100 mg/dL (Neg-Trace); Specific Gravity, Urine 1.013 (1.002-1.036); pH, Urine 5.5 (5.0-9.0)
[2018-05-18 21:42] LABS: Puncture Site RRA
[2018-05-18 21:43] LABS: Bacteria/HPF None Seen HPF (None Seen)
[2018-05-18 21:53] LABS: Amphetamine Not Detected (NotDetected); Barbiturates Screen Not Detected (NotDetected); Benzodiazepine Screen Not Detected (NotDetected); Cocaine Metabolite Screen Detected (NotDetected); Medtox Control Line Valid? VALID (VALID); Medtox Reader # READER 1; Methadone Not Detected (NotDetected); Methamphetamine Not Detected (NotDetected); Opiate Screen Detected (NotDetected); Oxycodone Screen Not Detected (NotDetected); Phencyclidine (PCP) Not Detected (NotDetected); THC/Cannabinoid Screen Not Detected (NotDetected); Tricyclic Screen Not Detected (NotDetected)
[2018-05-18 21:55] LABS: Hyaline Casts/LPF >50 HYALINE CAST LPF (0-3 Hyaline)
[2018-05-18] MEDS ORDERED: Ondansetron ODT 4 MG TAB PO PRN (22:42)
[2018-05-18] MEDS ORDERED: Acetaminophen 325 MG TAB PO PRN (22:42)
[2018-05-18] MEDS ORDERED: Acetaminophen 650 MG Suppository PR PRN (22:42)
[2018-05-18] MEDS ORDERED: Ondansetron HCl/PF 4 MG/2 ML Vial IVP PRN (22:42)
[2018-05-18 22:58] LABS: Reticulocyte Count 4.7 % (0.5-1.5)
[2018-05-18 23:08] LABS: Iron 56 ug/dL (65-175); Iron Binding Capacity, Total 123 mcg/dL (261-462)
[2018-05-19 00:11] LABS: Troponin I 0.051 ng/mL (< 0.028)
[2018-05-19 00:39] LABS: Vitamin B12 Greater than 2000 pg/mL (211-911)
[2018-05-19 02:54] VITALS: BMI 32.1
[2018-05-19 04:00] LABS: #Eosinphils 0.1 thou/uL (0.0-0.7); #Lymphocytes 1.6 thou/uL (1.20-3.40); #Monocytes 0.5 thou/uL (0.11-0.59); #Neutrophils 6.2 thou/uL (1.40-6.50); %Basophils 0.5 % (0.0-1.0); %Eosinophils 0.8 % (0.0-10.0); %Lymphocytes 19.4 % (21.0-51.0); %Monocytes 6.4 % (0.0-10.0); %Neutrophils 72.9 % (42.0-75.0); Hemoglobin 9.4 g/dL (14.0-18.0); Mean Corpuscular HGB CONC 32.2 g/dL (32.0-36.0); Mean Corpuscular Hemoglobin 30.1 pg (27.0-31.0); Mean Corpuscular Volume 93.7 fL (78.0-98.0); Platelet Count 157 thou/uL (130-400); Red Blood Cell (RBC) Count 3.13 mill/uL (4.70-6.10); White Blood Cell (WBC) Count 8.5 thou/uL (4.8-10.8)
[2018-05-19 04:13] LABS: ALT (SGPT) 31 U/L (8-55); AST (SGOT) 73 U/L (5-34); Albumin 2.3 g/dL (3.5-5.0); Alkaline Phosphatase 181 U/L (40-150); Anion Gap 18 mmol/L (10-20); BUN (Urea Nitrogen) 114 mg/dL (8.9-20.6); BUN/Creatinine Ratio 28.43; Bilirubin, Total 2.6 mg/dL (0.2-1.2); Calc. Creatinine Clearance 28 mL/min (70-130); Calcium 8.5 mg/dL (7.8-10.44); Carbon Dioxide 17 mmol/L (22-29); Chloride 105 mmol/L (98-107); Estimated GFR-MDRD 19; Globulin 6.1 g/dL (2.4-3.5); Glucose 180 mg/dL (70-105); Phosphorus 5.3 mg/dL (2.3-4.7); Potassium 5.4 mmol/L (3.5-5.1); Protein, Total 8.4 g/dL (6.0-8.3); Sodium 135 mmol/L (136-145)
[2018-05-19 04:17] LABS: Troponin I 0.052 ng/mL (< 0.028)
[2018-05-19] MEDS: cefTRIAXone\\ROCEPHIN 1 GM in Sodium Chloride 0.9% 100 ML IVPB SCH (04:36)
--- NOTE | 2018-05-19 04:46 | HP ---
CHIEF COMPLAINT: Shortness of breath, edema. HISTORY OF PRESENT ILLNESS: This is a 47-year-old male with past medical history of end-stage renal disease secondary to polysubstance abuse, chronic hepatitis C, heart failure with reduced left ventri cular ejection fraction of 20%-25%. History of polysubstance abuse, diabetes mellitus type 2, hyperl ipidemia, and noncompliance who is presenting to ED with bilateral lower extremity edema and shortnes s of breath. Per nursing staff and patient's records, the patient was recently at [facility] similar presentation and the patient signed out against medical advice. At this time, patient is n ow being brought to our emergency room. The patient is altered and cannot able to provide us with go od history; however, we are obtaining some of the patient's history from nursing staff who spoke to t he patient's power of document review attorney Daniela Finn, who is number is [phone] and rocky Kimble o is number is [phone]. Upon further investigation into the patient's chart, we see the patient has been abusing cocaine and has been doing illicit drugs. The patient is very noncompliant with hi s medication. The patient does have cirrhosis with elevated ammonia levels and the patient tends to have alteration of awareness every time when the patient's ammonia levels are elevated. Per the nurs ing staff, when the patient gets treated and patient becomes alert and oriented, patient tends to sig n out against medical advice. Upon further review of the chart, it also shows the patient was made h ospice in the past and patient's code status is DNR/DNI, but at this time is very hard to get any his tory from the patient, so we will make patient FULL CODE and we will consult palliative care for furt her conversation with the power of document review attorney if patient is still DNR or DNI. REVIEW OF SYSTEMS: Not able to be obtained because the patient is altered. PAST MEDICAL HISTORY: 1. End-stage liver disease secondary to chronic hepatitis C and polysubstance abuse. 2. Chronic kidney disease stage 4. 3. Heart failure with reduced ejection fraction. 4. Coronary artery disease. 5. Hyperlipidemia. 6. Chronic obstructive pulmonary disease. PAST SURGICAL HISTORY: Hernia repair, cardiac stents and abdominal paracentesis. FAMILY HISTORY: Reviewed and noncontributory. SOCIAL HISTORY: The patient smokes 1.5 packs per day. The patient uses drugs, abuse marijuana and c ocaine. ALLERGIES: The patient is allergic to FENTANYL, IBUPROFEN, NSAIDS, TORADOL and TRAMADOL. CURRENT MEDICATIONS: The patient is on furosemide 80 mg, lactulose 15 mL b.i.d., clonidine 0.2 mg b. i.d., daily, folic acid 1 mg, nadolol 40 mg a day, hydralazine 50 mg as needed, Lantus 40 subcu , multivitamin, [place], Xanax 2 mg b.i.d., K-Dur 20 mEq, Humulin 70/30 of 64 units subcu b.i.d. and vi tamin B12 daily, omeprazole 20, metolazone 2.5 mg, carvedilol 12.5 mg, and spironolactone 50 mg. PHYSICAL EXAMINATION: VITAL SIGNS: Blood pressure 132/114, heart rate of 74, respiratory rate of 20, O2 sat 99 on room air . GENERAL APPEARANCE: The patient is lying in bed, making noise, waning. HEENT: Normocephalic, atraumatic. Pupils are equally round and react to light. Extraocular movemen ts are intact. No scleral icterus. Mucous membranes are moist. NECK: Trachea is midline. No jugular venous distention, no tenderness, no abrasions. LUNGS: The patient has mild rales at the bases of the lungs bilaterally. No wheezing appreciated. CARDIOVASCULAR: Positive S1, S2, regular rate and rhythm. No murmurs, no gallops, no rubs appreciat ed. ABDOMEN: Diffuse abdominal tenderness with palpation, soft, positive bowel sounds. EXTREMITIES: The patient has tenderness at the lower extremities bilaterally and anasarca noted at t he abdomen going all the way down to the lower extremities bilaterally. The patient does have scrota l edema as noted. There is a Omalley in place. NEUROLOGIC: Cranial nerves II-XII grossly intact. No focal neurologic deficits noted. ED COURSE: The patient was given ketamine 100 mg for sedation, furosemide 80 IV push was given. Chest x-ray showed cardiomegaly and left upper zone airspace disease. Findings may reflect edema or pneumonia. LABORATORY DATA: White blood cell count 8.1, hemoglobin 8.7, hematocrit is 26.5, MCV is 94.0, RDW is 18.7. Retic count is 4.7. ABGs: A pH is 7.4, pCO2 is 30, pO2 is 146. Sodium is 134, potassium is 4.9, chloride is 104, carbon dioxide of 20, gap of 15, BUN is 111, creatinine is 3.93 and GFR is 20. Iron level was 56, TIBC saturation 23, ferritin is 415, AST 72, ALT 29. Ammonia level is 136, CK-M B is 11.9, troponin 0.051. BNP is 17,653. TSH is 2.18. Folate is 15.20. Urinalysis is positive fo r leukoesterase and negative for nitrites. Toxicology positive for cocaine and opioids. ASSESSMENT AND PLAN: This is a 47-year-old male being admitted for: 1. Acute on chronic systolic heart failure. At this point, we have a Omalley in place. We have Cardi ology consulted. We are giving patient Lasix. The patient has not been compliant with his home medi cations. We will follow up in the morning and we will monitor the patient closely. We will admit th e patient to the [facility]. 2. Scrotal edema due to hepatic cirrhosis and also heart failure. At this point, we will continue p atient on Lasix IV and will follow up with the morning labs. 3. Hepatic encephalopathy due to increased ammonia levels. We will start patient on lactulose 20 mg q.i.d. and we will monitor the patient's mental status. 4. End-stage renal failure. We have consulted Nephrology. We will follow up with their recommendat ions. We have consulted Palliative Care and we will follow up with morning labs. 5. Urinary tract infection. The patient has a positive leukoesterase. We will start the patient on Rocephin. We will treat patient's urinary tract infection. We will follow up on cultures. 6. Heart failure with reduced ejection fraction. We have ordered for an echo. We consulted Cardiol negro. We will follow up with their recommendations. 7. Deep venous thrombosis and gastrointestinal prophylaxis. We will do SCDs, we will do Pepcid. 8. Polysubstance abuse. The patient has positive cocaine in his urine. We will monitor the patient . At this point, we will continue supportive care. DISPOSITION: The patient has been admitted to the [facility]. We will monitor the patient closely. We wi ll follow up with consultants for their recommendations and we will contact patient's family members regarding the patient's DNR/DNI status and we have consulted Palliative Care for goal of care.
[2018-05-19] MEDS: Furosemide 40 MG/4 ML VIAL SLOW IVP SCH ×2 (05:04→15:19)
[2018-05-19] MEDS ORDERED: Heparin 5,000 UNITS/ML VIAL SC SCH (09:00)
[2018-05-19] MEDS: risperiDONE 0.25 MG TAB PO SCH (09:15)
[2018-05-19] MEDS: ALPRAZolam 1 MG TAB PO SCH ×2 (09:15→21:05)
[2018-05-19] MEDS: Famotidine/PF 20 mg/2ml Vial SLOW IVP SCH (09:16)
[2018-05-19] MEDS: Potassium Chloride 20 MEQ TAB PO SCH (09:16)
[2018-05-19] MEDS: Folic Acid 1 MG TAB PO SCH (09:16)
[2018-05-19] MEDS: Ferrous Sulfate 325 MG TAB PO SCH (09:16)
--- NOTE | 2018-05-19 10:51 | CON ---
DATE OF CONSULTATION: 05/19/2018 CONSULTING PHYSICIAN: Hospitalist REASON FOR CONSULTATION: IMCU placement. HISTORY OF PRESENT ILLNESS: This is a 47-year-old male who apparently has extensive drug issues. He is unable to give me anything in the way of history. In fact, while I was in the room he was rather combative and was swinging at me with his fist. According to his history, he is currently hospitalized for shortness of breath and edema. He has med rly extensive chronic kidney disease and has a dilated cardiomyopathy. He is a cocaine abuser. He h as been DNR in the past. He has spent some time in the [facility], but I believe he rece ntly left there against medical advice. PAST MEDICAL HISTORY: 1. End-stage liver disease secondary to hepatitis C. 2. Cocaine abuse. 3. Chronic kidney disease stage 4. 4. Cardiomyopathy with ejection fraction of 20-25%. 5. Coronary artery disease. 6. Hyperlipidemia. 7. Chronic obstructive pulmonary disease. PAST SURGICAL HISTORY: 1. Hernia repair. 2. Coronary stent placement. 3. Abdominal paracentesis. SOCIAL HISTORY: Smokes a pack and a half a day. Uses cocaine and marijuana daily. ALLERGIES: FENTANYL, IBUPROFEN, NSAIDS, TORADOL, TRAMADOL. MEDICATIONS: Prior to admission; furosemide, lactulose, clonidine, Nadolol, hydralazine, Lantus insu tatum, multivitamin, [place], Xanax, K-Dur, insulin 70/30, omeprazole, metolazone, carvedilol, and spiron olactone. REVIEW OF SYSTEMS: Cannot be obtained secondary to patient agitation. PHYSICAL EXAMINATION: VITAL SIGNS: Temperature 97.2, pulse 81, respirations 20, O2 sat 100% on 3 liters, blood pressure 94 /80. GENERAL: He is a disheveled appearing male who is quite agitated. HEENT: Unremarkable. NECK: No JVD. LUNGS: Clear without wheezing. CARDIOVASCULAR: S1, S2 muffled. ABDOMEN: Soft, slightly distended. EXTREMITIES: 4+ edema from the knees downward. LABORATORY AND X-RAY FINDINGS: White blood cell count 8.5, hematocrit 29.3, platelet count 157. Sod ium 135, potassium 5.4, chloride 105, CO2 17, BUN 114, creatinine 4.0, glucose 180. ABG; pH 7.44, p CO2 31, pO2 146. Urinalysis showed red cells and white cells. Tox screen showed cocaine and opiates . Chest x-ray shows cardiomegaly with pulmonary vascular congestion. ASSESSMENT: 1. Congestive heart failure. 2. End-stage renal disease. 3. Agitated patient. 4. Multiple other medical problems as listed above. PLAN: No acute pulmonary needs. The patient is currently undergoing diuresis. Nephrology has been consulted. The patient may end up needing dialysis if that is his wishes.
--- NOTE | 2018-05-19 13:53 | CON ---
DATE OF CONSULTATION: 05/19/2018 HISTORY OF PRESENT ILLNESS: The patient is an unfortunate 47-year-old gentleman with a known severe cardiomyopathy and end-stage liver disease, who presented with dyspnea and altered mental status. Th e patient is unable to give any type of coherent history. The patient has previously suffered a myoc ardial infarction. He has been treated medically due to his severe liver disease. The patient prese nted to the hospital edematous and was admitted for further evaluation. PAST MEDICAL HISTORY: 1. Severe cardiomyopathy. 2. End-stage renal disease. 3. Hypertension. 4. Dyslipidemia. 5. Chronic obstructive pulmonary disease. PAST SURGICAL HISTORY: He has had a hernia repair. SOCIAL HISTORY: He smokes 1-1/2-pack per day. ALLERGIES: He is allergic to FENTANYL, NONSTEROIDALS, IBUPROFEN, TORADOL, and TRAMADOL. MEDICATIONS: Noncompliant. PHYSICAL EXAMINATION: GENERAL: This is an obtunded gentleman with a blood pressure of 154/100. NECK: Full. LUNGS: Crackles in both lung bases. HEART: Regular rate and rhythm, normal S1 and S2, no murmurs. ABDOMEN: Distended. EXTREMITIES: Showed severe bilateral edema. LABORATORY DATA: White blood cell count 8.5, hemoglobin 9.4, hematocrit 29.3, his platelets are 157. Sodium was 135, potassium 5.4, chloride 105, bicarbonate 17, BUN 114, creatinine 4.0, glucose 130. His troponin was 0.052. His BNP was 17,663. IMPRESSION: 1. Congestive heart failure. 2. Severe cardiomyopathy. 3. End-stage renal disease. 4. End-stage liver disease. 5. Chronic obstructive pulmonary disease. 6. History of illicit drug use. This gentleman presents with congestive heart failure and renal failure. The patient is being underg oing dialysis. From a cardiac standpoint, his prognosis is very poor. We will check the patient's e chocardiogram and follow this patient with you through his hospitalization.
[2018-05-19] MEDS ORDERED: Haloperidol Lactate 5 MG/ML VIAL IM PRN (20:35)
--- NOTE | 2018-05-19 20:48 | PDOC.PN ---
- Subjective Encounter Start Date: 05/19/18 Encounter Start Time: 17:00 -: non-verbal Patient seen and examined for CHF/Encephalopathy. No IV access. Lethargic - Objective Resuscitation Status: Resuscitation Status DNR:Do Not Resuscitate MAR Reviewed: Yes Vital Signs & Weight: Vital Signs (12 hours) Temp Pulse Resp BP Pulse Ox 05/19/18 19:00 97.5 F L 77 23 H 133/104 H 100 05/19/18 15:00 97.4 F L 20 157/113 H 05/19/18 10:52 97.4 F L 68 18 145/99 H Weight Weight 193 lb 1.6 oz I&O: 05/18/18 05/19/18 05/20/18 06:59 06:59 06:59 Intake Total 100 Output Total 600 350 Balance -500 -350 Result Diagrams: 05/19/18 03:49 05/19/18 03:49 EKG Reviewed by me: Yes (Tele SR) Phys Exam - Physical Examination Lethargic Respiratory: no wheezing Bibasilar rales Cardiovascular: RRR, no rub Gastrointestinal: soft, positive bowel sounds Musculoskeletal: edema present Dx/Plan - Plan DVT proph w/SCDs IMPRESSION: 1. Toxic Metabolic Encephalopathy - multifactorial. 2. Acute on chronic systolic HF 3. JAROCHO/Hyperkalemia 4. Elevated troponins due to demand ischamia 5. Polysubstance abuse / Other issues per H&P PLAN: Cont current meds as below Palliative care following Cont supportive care Hospice eval Review of Systems - Review of Systems Other: Cannot obtain due to current mentation. - Medications/Allergies Allergies/Adverse Reactions: Allergies Allergy/AdvReac Type Severity Reaction Status Date / Time ibuprofen [From Motrin] Allergy Severe Short of Verified 02/21/18 16:52 Breath ketorolac tromethamine Allergy Severe Short of Verified 02/21/18 16:52 [From Toradol] Breath fentanyl Allergy Verified 02/21/18 16:52 NSAIDS (Non-Steroidal Allergy Short of Verified 02/21/18 16:52 Anti-Inflamma Breath tramadol HCl [From Ultram] Allergy Short of Verified 02/21/18 16:52 Breath Medications: Current Medications Acetaminophen (Tylenol) 650 mg PO Q4H PRN PRN Reason: Headache/Fever/Mild Pain (1-3) Acetaminophen (Tylenol) 650 mg AR Q4H PRN PRN Reason: Headache/Fever/Mild Pain (1-3) Alprazolam (Xanax) 2 mg PO BID [facility] Last Admin: 05/19/18 09:15 Dose: 2 mg Famotidine (Pepcid) 20 mg SLOW IVP QAM [facility] Last Admin: 05/19/18 09:16 Dose: Not Given Ferrous Sulfate (Feosol) 325 mg PO QAM-WM [facility] Last Admin: 05/19/18 09:16 Dose: Not Given Folic Acid (Folvite) 1 mg PO DAILY [facility] Last Admin: 05/19/18 09:16 Dose: Not Given Furosemide (Lasix) 40 mg SLOW IVP 0600,1400 [facility] Last Admin: 05/19/18 15:19 Dose: Not Given Haloperidol Lactate (Haldol) 1 mg IM Q4H PRN PRN Reason: Agitation Stop: 05/20/18 07:00 Ceftriaxone Sodium 1 gm/ (Sodium Chloride) 100 mls @ 200 mls/hr IVPB Q24HR [facility] Last Admin: 05/19/18 04:36 Dose: 100 mls Lactulose (Lactulose) 20 gm PO QID [facility] Last Admin: 05/19/18 17:39 Dose: Not Given Ondansetron HCl (Zofran Odt) 4 mg PO Q6H PRN PRN Reason: Nausea/Vomiting Ondansetron HCl (Zofran) 4 mg IVP Q6H PRN PRN Reason: Nausea/Vomiting Pneumococcal 13-Valent Conj Vacc (Prevnar) 0.5 ml IM .ONCE ONE Stop: 05/20/18 09:01 Potassium Chloride (K-Dur) 20 meq PO DAILY [facility] Last Admin: 05/19/18 09:16 Dose: Not Given Risperidone (Risperidone) 0.5 mg PO DAILY [facility] Last Admin: 05/19/18 09:15 Dose: 0.5 mg Sodium Chloride (Flush - Normal Saline) 10 ml IVF Q12HR PRN PRN Reason: Saline Flush Sodium Chloride (Flush - Normal Saline) 10 ml IVF PRN PRN PRN Reason: Saline Flush Last Admin: 05/19/18 05:04 Dose: 10 ml
--- NOTE | 2018-05-19 23:57 | CON ---
DATE OF CONSULTATION: 05/19/2018 NEPHROLOGY CONSULTATION REASON FOR CONSULTATION: Acute kidney injury. REASON FOR ADMISSION: Shortness of breath. HISTORY OF PRESENT ILLNESS: This is a 47-year-old male with history of end-stage liver disea se, chronic kidney disease, heart failure and hyperlipidemia, who came to the hospital with shortness of breath and was found to have elevated creatinine and Nephrology is consulted. The patient is cur rently confused, not able to get a good history. His creatinine was 4.01 with a GFR of 19, potassium of 5.4. PAST MEDICAL HISTORY: End-stage liver disease, chronic kidney disease, heart failure, coronary arter y disease, hyperlipidemia and COPD. PAST SURGICAL HISTORY: Hernia repair, cardiac stents and abdominal paracentesis. HOME MEDICATIONS: Include spironolactone, [place], Risperdal, Theragran, folic acid, Feosol, metolazon e, lisinopril, lactulose, Lasix, vitamin B12, carvedilol, aspirin and allopurinol. ALLERGIES: IBUPROFEN, KETOROLAC . SOCIAL HISTORY: Smokes 1.5 packs per day. FAMILY HISTORY: . REVIEW OF SYSTEMS: Could not be obtained. PHYSICAL EXAMINATION: GENERAL: This is a well-built male who is confused. VITAL SIGNS: Temperature 97.5, pulse 68, respiratory rate 18, blood pressure 140/99. HEENT: Atraumatic, normocephalic. Moist oral mucosa. NECK: Supple, no masses. CARDIOVASCULAR: S1, S2. Rate and rhythm regular. RESPIRATORY: Clear. ABDOMEN: Soft. MUSCULOSKELETAL: 1+ edema. DERMATOLOGIC: No skin rash. NEUROLOGICAL: Confused. LABORATORY DATA: Potassium is 5.4, BUN is 114, and creatinine is 4.04. ASSESSMENT AND PLAN: 1. Acute kidney injury on chronic kidney stage IV. Continue supportive care. No acute indication f or dialysis. Might need in the near future. 2. Hyperkalemia. Continue supportive care. 3. Metabolic acidosis. 4. Anemia. 5. Hepatic encephalopathy. 6. Mild proteinuria. 7. Substance abuse. Overall, prognosis is poor. We will continue to monitor. Avoid nephrotoxins, continue supportive ca re for now. Might need renal replacement.
[2018-05-20 04:11] LABS: Anion Gap 15 mmol/L (10-20); BUN (Urea Nitrogen) 115 mg/dL (8.9-20.6); Calc. Creatinine Clearance 31 mL/min (70-130); Calcium 8.5 mg/dL (7.8-10.44); Carbon Dioxide 18 mmol/L (22-29); Chloride 108 mmol/L (98-107); Estimated GFR-MDRD 22; Glucose 160 mg/dL (70-105); Potassium 5.3 mmol/L (3.5-5.1); Sodium 136 mmol/L (136-145)
[2018-05-20] MEDS: cefTRIAXone\\ROCEPHIN 1 GM in Sodium Chloride 0.9% 100 ML IVPB SCH (04:23)
[2018-05-20] MEDS: Furosemide 40 MG/4 ML VIAL SLOW IVP SCH ×2 (04:24→18:24)
[2018-05-20 04:35] LABS: Band 1 % (5-11); Hemoglobin 8.7 g/dL (14.0-18.0); Lymphocytes 12 % (21-51); MDiff Complete? YES; Mean Corpuscular HGB CONC 31.9 g/dL (32.0-36.0); Mean Corpuscular Volume 94.1 fL (78.0-98.0); Mean Platelet Volume 8.8 fL (7.4-10.4); Monocytes 2 % (0-10); Neutrophil 85 % (42-75); Platelet Count 139 thou/uL (130-400); Red Blood Cell (RBC) Count 2.91 mill/uL (4.70-6.10); White Blood Cell (WBC) Count 8.5 thou/uL (4.8-10.8)
[2018-05-20] MEDS: Potassium Chloride 20 MEQ TAB PO SCH (08:08)
[2018-05-20] MEDS: Ferrous Sulfate 325 MG TAB PO SCH (08:08)
[2018-05-20] MEDS: Folic Acid 1 MG TAB PO SCH (08:08)
[2018-05-20] MEDS: Famotidine/PF 20 mg/2ml Vial SLOW IVP SCH (08:09)
[2018-05-20] MEDS ORDERED: Prevnar 13-Val Conj/PF 0.5 ML SYRINGE IM ONE (09:00)
--- NOTE | 2018-05-20 10:15 | PRG ---
DATE OF SERVICE: 05/20/2018. SUBJECTIVE: Patient was seen and examined at bedside and overnight events noted. Patient denies any shortness of breath or chest pain or palpitation. No history of nausea or vomiting or diarrhea or f ever or chills or cramps. OBJECTIVE: GENERAL: This is a well-built male, confused. VITAL SIGNS: Temperature 97.8, pulse 76, respiratory rate 24, blood pressure 133/94. HEENT: Atraumatic, normocephalic. Oral mucosa is moist. NECK: Supple. CARDIOVASCULAR: S1, S2 heard. Rate and rhythm regular. RESPIRATORY: Clear to auscultation. GASTROINTESTINAL: Abdomen is soft. MUSCULOSKELETAL: No tenderness, no edema. DERMATOLOGIC: No skin rash. NEUROLOGIC: Alert and awake and oriented x3. No focal neurologic deficits. Moving all the extremit ies. PSYCHIATRIC: Mood and affect normal. LABORATORY DATA: Potassium 5.3, BUN is 115, and creatinine is 3.6. ASSESSMENT AND PLAN: 1. Acute kidney injury on chronic kidney disease stage 4. Renal function is stable, actually creati nine is slightly better, BUN remains elevated, most likely from hepatic encephalopathy. 2. Hyperkalemia, stable. 3. Metabolic acidosis. 4. Anemia. 5. Hepatic encephalopathy. 6. Substance abuse. No acute indication for dialysis. We will follow.
[2018-05-20] MEDS ORDERED: Meperidine HCl/PF 25 MG/ML VIAL IM PRN (10:19)
--- NOTE | 2018-05-20 10:36 | PDOC.PN ---
- Subjective Encounter Start Date: 05/20/18 Encounter Start Time: 10:35 Mr. Long was seen today in follow-up of altered mental status, and CHF exacerbation. He is currently still confused. He appears agitated, or restless. - Objective Resuscitation Status: Resuscitation Status DNR:Do Not Resuscitate MAR Reviewed: Yes Vital Signs & Weight: Vital Signs (12 hours) Temp Pulse Resp BP Pulse Ox 05/20/18 07:00 96.7 F L 78 24 H 152/106 H 92 L 05/20/18 03:00 97.8 F 76 24 H 133/94 H 100 05/20/18 00:25 97.8 F 104 H 22 H 148/109 H 100 Weight Weight 188 lb 14.4 oz I&O: 05/19/18 05/20/18 05/21/18 06:59 06:59 06:59 Intake Total 100 Output Total 600 1700 Balance -500 -1700 Result Diagrams: 05/20/18 03:36 05/20/18 03:36 Phys Exam - Physical Examination HEENT: PERRLA, sclera anicteric Respiratory: no wheezing, no rales, no rhonchi, clear to auscultation bilateral Cardiovascular: RRR, no rub 2/6 systolic murmur, no gallop Gastrointestinal: soft, non-tender, no distention, positive bowel sounds Musculoskeletal: edema present 3-4+ pitting edema in both legs, and scrotum Dx/Plan (1) Acute on chronic systolic heart failure Code(s): I50.23 - ACUTE ON CHRONIC SYSTOLIC (CONGESTIVE) HEART FAILURE Status : Acute (2) Cocaine abuse Code(s): F14.10 - COCAINE ABUSE, UNCOMPLICATED Status: Chronic (3) DM type 2 (diabetes mellitus, type 2) Status: Chronic Qualifiers: Diabetes mellitus fpc insulin use: with fpc use Diabetes mellitus complication status: with kidney complications Diabetes mellitus complication detail: with chronic kidney disease Chronic kidney disease stage : stage 3 (moderate) Qualified Code(s): E11.22 - Type 2 diabetes mellitus with diabetic chronic kidney disease; N18.3 - Chronic kidney disease, stage 3 ( moderate); N18.3 - Chronic kidney disease, stage 3 (moderate); N18.3 - Chronic kidney disease, stage 3 (moderate); Z79.4 - detention (current) use of insulin; Z79.4 - detention (current) use of insulin; Z79.4 - termite treater (current) use of insulin; Z79.4 - termite treater (current) use of insulin (4) HTN (hypertension) Code(s): I10 - ESSENTIAL (PRIMARY) HYPERTENSION Status: Chronic (5) Hepatic encephalopathy Code(s): K72.90 - HEPATIC FAILURE, UNSPECIFIED WITHOUT COMA Status: Acute - Plan * Acute on chronic systolic heart failure- continue IV diuresis- continue to monitor and correct electrolytes as needed * Hepatic encephalopathy- continue Lactulose as tolerated * Iron Deficiency anemia- stable * Acute on chronic kidney disease- likely due to Cardio-renal syndrome- continue to diurese- * HTN- blood pressure is not well controlled- will add a CAtapres patch * Symptom management- ( will add Morphine SL for pain, and air hunger) Ativan IM for agitation * UTI- I suspect more asymptomatic Bactiuria- will discontinue antibiotics * A Hospice Consult has been placed.
[2018-05-20] MEDS ORDERED: Dextrose 50% Abboject 50 ML SYRINGE SLOW IVP PRN (10:48)
[2018-05-20] MEDS ORDERED: HumaLOG 300 UNITS/3 ML VIAL SC PRN ×2 (10:48)
[2018-05-20] MEDS ORDERED: Dextrose 5% in Water 1,000 ML IV PRN (10:48)
[2018-05-20] MEDS: risperiDONE 0.25 MG TAB PO SCH (10:58)
[2018-05-20] MEDS: ALPRAZolam 1 MG TAB PO SCH ×2 (10:58→20:24)
[2018-05-20] MEDS ORDERED: cloNIDine 0.2mg/24 Hour PATCH TD SCH (12:00)
[2018-05-20] MEDS: Morphine 10 MG/0.5 ML ORAL SYRINGE SL PRN ×2 (12:02→18:25)
[2018-05-20] MEDS: Ziprasidone 20 MG VIAL IM PRN ×2 (12:33→17:30)
--- NOTE | 2018-05-20 15:17 | PRG ---
DATE OF SERVICE: 05/20/2018 SUBJECTIVE: The patient is somnolent in bed. He has a sitter. PHYSICAL EXAMINATION: VITAL SIGNS: On exam, temperature is 96.7, pulse 78, respirations 24, O2 sat 92% on 3 liters, blood pressure 141/103. HEENT: Unremarkable. NECK: No JVD. LUNGS: Coarse breath sounds. CARDIAC: S1 and S2, regular. ABDOMEN: Soft, nontender. EXTREMITIES: Edematous. LABORATORY DATA: White blood cell count 8.5, hematocrit 27.4, platelet count 139. Sodium 136, potas sium 5.3, chloride 108, CO2 of 18, BUN 115, creatinine 3.6, glucose 160. ASSESSMENT: 1. End-stage renal disease. 2. Multiple medical problems including substance abuse, diabetes mellitus, and hepatic encephalopath y. RECOMMENDATIONS: He seems more suitable for comfort care than anything else. Hospice has been consu lted. There are no active issues that I think I can be of assistance, and therefore, I will sign off the case.
[2018-05-20] MEDS: Carvedilol 6.25 MG TAB PO SCH (18:24)
[2018-05-21] MEDS: Morphine 10 MG/0.5 ML ORAL SYRINGE SL PRN (00:20)
[2018-05-21 04:12] LABS: Anion Gap 14 mmol/L (10-20); BUN (Urea Nitrogen) 116 mg/dL (8.9-20.6); Calc. Creatinine Clearance 30 mL/min (70-130); Calcium 8.6 mg/dL (7.8-10.44); Carbon Dioxide 21 mmol/L (22-29); Chloride 110 mmol/L (98-107); Estimated GFR-MDRD 22; Glucose 146 mg/dL (70-105); Sodium 140 mmol/L (136-145)
[2018-05-21 04:38] LABS: Hemoglobin 8.6 g/dL (14.0-18.0); Hypochromia SLIGHT = 6-15 cells (100X) (0-5/hpf); Lymphocytes 9 % (21-51); MDiff Complete? YES; Mean Corpuscular HGB CONC 32.5 g/dL (32.0-36.0); Mean Corpuscular Hemoglobin 30.9 pg (27.0-31.0); Mean Platelet Volume 8.1 fL (7.4-10.4); Monocytes 3 % (0-10); Neutrophil 88 % (42-75); PLT Morphology Comment Appears Adequate; Platelet Count 134 thou/uL (130-400); RBC Distribution Width 19.4 % (11.5-14.5); Red Blood Cell (RBC) Count 2.79 mill/uL (4.70-6.10); White Blood Cell (WBC) Count 8.4 thou/uL (4.8-10.8)
[2018-05-21] MEDS: Furosemide 40 MG/4 ML VIAL SLOW IVP SCH ×2 (06:58→17:30)
[2018-05-21] MEDS: Ziprasidone 20 MG VIAL IM PRN (09:18)
--- NOTE | 2018-05-21 09:39 | PDOC.PN ---
- Subjective Encounter Start Date: 05/21/18 Encounter Start Time: 09:37 Mr. Long was seen today in follow-up of altered mental status. and CHF. He is still quite confused, with periods of agitation. A sitter is currently in the room. - Objective Resuscitation Status: Resuscitation Status DNR:Do Not Resuscitate MAR Reviewed: Yes Vital Signs & Weight: Vital Signs (12 hours) Temp Pulse Resp BP Pulse Ox 05/21/18 08:00 94 L 05/21/18 03:59 97.4 F L 76 18 153/104 H 99 05/20/18 23:45 97.4 F L 76 18 150/103 H 94 L Weight Weight 186 lb I&O: 05/20/18 05/21/18 05/22/18 06:59 06:59 06:59 Output Total 1700 1400 Balance -1700 -1400 Result Diagrams: 05/21/18 03:36 05/21/18 03:36 Phys Exam - Physical Examination HEENT: PERRLA, sclera anicteric Respiratory: no wheezing, no rales, no rhonchi, clear to auscultation bilateral Cardiovascular: RRR, no significant murmur, no rub no gallop Gastrointestinal: soft, non-tender, no distention, positive bowel sounds Musculoskeletal: edema present 2+ pitting edema bilaterally Deviation from normal: Disoriented, and confused Skin: no rash Dx/Plan (1) Acute on chronic systolic heart failure Code(s): I50.23 - ACUTE ON CHRONIC SYSTOLIC (CONGESTIVE) HEART FAILURE Status : Acute (2) DM type 2 (diabetes mellitus, type 2) Status: Chronic Qualifiers: Diabetes mellitus jail insulin use: with buttermaker helper use Diabetes mellitus complication status: with kidney complications Diabetes mellitus complication detail: with chronic kidney disease Chronic kidney disease stage : stage 3 (moderate) Qualified Code(s): E11.22 - Type 2 diabetes mellitus with diabetic chronic kidney disease; N18.3 - Chronic kidney disease, stage 3 ( moderate); N18.3 - Chronic kidney disease, stage 3 (moderate); N18.3 - Chronic kidney disease, stage 3 (moderate); Z79.4 - buttermaker helper (current) use of insulin; Z79.4 - residential (current) use of insulin; Z79.4 - residential (current) use of insulin; Z79.4 - buttermaker helper (current) use of insulin (3) HTN (hypertension) Code(s): I10 - ESSENTIAL (PRIMARY) HYPERTENSION Status: Chronic (4) Hepatic encephalopathy Code(s): K72.90 - HEPATIC FAILURE, UNSPECIFIED WITHOUT COMA Status: Acute (5) Cocaine abuse Code(s): F14.10 - COCAINE ABUSE, UNCOMPLICATED Status: Chronic - Plan * Acute on chronic systolic heart failure- compensated * Hepatic encephalopathy- continue lactulose as tolerated ( he has been spitting it out) * HTN- blood pressure is elevated- continue Catapres patch- this may take a few days for optimal effect * Nutritional support- He has pulled his central line out, and he does not have IV access, I spoke with the patient's sister Kati, and she has given permission for pleasure feeds as tolerated, especially since the plan is for Hospice care * Awaiting Hospice placement.
[2018-05-21] MEDS: Carvedilol 6.25 MG TAB PO SCH ×2 (09:44→17:30)
[2018-05-21] MEDS: ALPRAZolam 1 MG TAB PO SCH ×2 (09:56→20:19)
[2018-05-21] MEDS: Folic Acid 1 MG TAB PO SCH (09:56)
[2018-05-21] MEDS: Ferrous Sulfate 325 MG TAB PO SCH (09:56)
[2018-05-21] MEDS: Famotidine/PF 20 mg/2ml Vial SLOW IVP SCH (09:56)
[2018-05-21] MEDS: Spironolactone 25 MG TAB PO SCH (09:57)
[2018-05-21] MEDS: Potassium Chloride 20 MEQ TAB PO SCH (09:57)
[2018-05-21] MEDS: risperiDONE 0.25 MG TAB PO SCH (09:57)
--- NOTE | 2018-05-21 13:35 | PRG ---
DATE OF SERVICE: 05/21/2018. SUBJECTIVE: The patient was seen and examined at bedside. The patient is somnolent and less agitate d earlier. OBJECTIVE: GENERAL: This is a well-built male, somnolent. VITAL SIGNS: Temperature 97.9, pulse 61, respiratory rate 18, blood pressure 140/92. HEENT: Atraumatic, normocephalic. Oral mucosa is moist. NECK: Supple. CARDIOVASCULAR: S1, S2 heard. Rate and rhythm regular. RESPIRATORY: Clear to auscultation. GASTROINTESTINAL: Abdomen is soft. MUSCULOSKELETAL: No tenderness, 1+ edema. DERMATOLOGIC: No skin rash. NEUROLOGIC: Somnolent. PSYCHIATRIC: Mood and affect normal. LABORATORY DATA: Potassium is 5.0, BUN is 116, creatinine 3.6. ASSESSMENT AND PLAN: 1. Acute kidney injury on chronic kidney stage IV. Renal function is stable. No acute indications for dialysis. 2. Hyperkalemia, better. 3. Metabolic acidosis, better. 4. Anemia. 5. Hepatic encephalopathy. 6. Substance abuse. 7. No acute indication for dialysis. We will follow.
--- NOTE | 2018-05-21 21:06 | EKG ---
Test Reason : Blood Pressure : / mmHG Vent. Rate : 073 BPM Atrial Rate : 073 BPM P-R Int : 142 ms QRS Dur : 102 ms QT Int : 456 ms P-R-T Axes : 089 026 133 degrees QTc Int : 502 ms Normal sinus rhythm Low voltage QRS Prolonged QT Abnormal ECG When compared with ECG of 18-MAY-2018 10:19, (Unconfirmed) No significant change was found Confirmed by Loco STANLEY ([id number]) on 05/21/2018 9:06:30 PM Referred By: PATSY Confirmed By:Loco STANLEY
[2018-05-22] MEDS: Ziprasidone 20 MG VIAL IM PRN ×2 (00:55→10:47)
[2018-05-22] MEDS: Furosemide 40 MG/4 ML VIAL SLOW IVP SCH ×2 (04:21→14:09)
[2018-05-22 04:37] LABS: Anion Gap 15 mmol/L (10-20); BUN (Urea Nitrogen) 113 mg/dL (8.9-20.6); Calc. Creatinine Clearance 30 mL/min (70-130); Calcium 8.5 mg/dL (7.8-10.44); Carbon Dioxide 19 mmol/L (22-29); Chloride 112 mmol/L (98-107); Estimated GFR-MDRD 23; Glucose 156 mg/dL (70-105); Potassium 5.2 mmol/L (3.5-5.1); Sodium 141 mmol/L (136-145)
[2018-05-22] MEDS: Morphine 10 MG/0.5 ML ORAL SYRINGE SL PRN (05:35)
--- NOTE | 2018-05-22 08:15 | PDOC.PN ---
- Subjective Encounter Start Date: 05/22/18 Encounter Start Time: 08:14 Mr. Long was seen today in follow-up of hepatic encephalopathy, and CHF exacerbation. He is somnolent this morning, and barely opens his eyes. - Objective Resuscitation Status: Resuscitation Status DNR:Do Not Resuscitate MAR Reviewed: Yes Vital Signs & Weight: Vital Signs (12 hours) Temp Pulse Resp BP Pulse Ox 05/22/18 07:29 97.3 F L 69 17 157/102 H 97 05/22/18 04:15 97.3 F L 65 20 139/99 H 96 05/22/18 00:22 97.2 F L 72 18 149/104 H 100 Weight Weight 182 lb 1 oz I&O: 05/21/18 05/22/18 05/23/18 06:59 06:59 06:59 Intake Total 480 Output Total 1400 1325 Balance -1400 -845 Result Diagrams: 05/21/18 03:36 05/22/18 03:56 Phys Exam - Physical Examination HEENT: PERRLA, sclera anicteric Respiratory: no wheezing, no rales, no rhonchi, clear to auscultation bilateral Cardiovascular: RRR, no significant murmur, no rub Gastrointestinal: soft, non-tender, no distention, positive bowel sounds Musculoskeletal: edema present 3+ pitting edema in both lower extremities Deviation from normal: Disoriented, and somnolent Dx/Plan (1) Acute on chronic systolic heart failure Code(s): I50.23 - ACUTE ON CHRONIC SYSTOLIC (CONGESTIVE) HEART FAILURE Status : Acute (2) Hepatic encephalopathy Code(s): K72.90 - HEPATIC FAILURE, UNSPECIFIED WITHOUT COMA Status: Acute (3) HTN (hypertension) Code(s): I10 - ESSENTIAL (PRIMARY) HYPERTENSION Status: Chronic (4) DM type 2 (diabetes mellitus, type 2) Status: Chronic Qualifiers: Diabetes mellitus long term care administrator insulin use: with halfway use Diabetes mellitus complication status: with kidney complications Diabetes mellitus complication detail: with chronic kidney disease Chronic kidney disease stage : stage 3 (moderate) Qualified Code(s): E11.22 - Type 2 diabetes mellitus with diabetic chronic kidney disease; N18.3 - Chronic kidney disease, stage 3 ( moderate); N18.3 - Chronic kidney disease, stage 3 (moderate); N18.3 - Chronic kidney disease, stage 3 (moderate); Z79.4 - long term care pharmacist (current) use of insulin; Z79.4 - [facility] (current) use of insulin; Z79.4 - long term care pharmacist (current) use of insulin; Z79.4 - [facility] (current) use of insulin (5) Cocaine abuse Code(s): F14.10 - COCAINE ABUSE, UNCOMPLICATED Status: Chronic - Plan * Acute on chronic systolic heart failure- compensated- ( he is not taking much in by mouth) he is not receiving Lasix. * Hepatic Encephalopathy- he has refused to take lactulose, * HTN- blood pressure is elevated- will add Nitropaste since he is not tolerating p.o. * Nutritional support- pleasure feeds * Awaiting Hospice .
[2018-05-22] MEDS: Ferrous Sulfate 325 MG TAB PO SCH (08:59)
[2018-05-22] MEDS: Carvedilol 6.25 MG TAB PO SCH ×2 (08:59→17:00)
[2018-05-22] MEDS: ALPRAZolam 1 MG TAB PO SCH ×2 (09:00→21:01)
[2018-05-22] MEDS: risperiDONE 0.25 MG TAB PO SCH (09:00)
[2018-05-22] MEDS: Folic Acid 1 MG TAB PO SCH (09:00)
[2018-05-22] MEDS: Potassium Chloride 20 MEQ TAB PO SCH (09:00)
[2018-05-22] MEDS: Famotidine/PF 20 mg/2ml Vial SLOW IVP SCH (09:00)
[2018-05-22] MEDS: Spironolactone 25 MG TAB PO SCH (09:01)
[2018-05-22] MEDS: Nitroglycerin 2% Ointment 1 INCH/1 GM Packet TOP SCH ×2 (14:13→21:57)
--- NOTE | 2018-05-22 18:49 | PRG ---
DATE OF SERVICE: 05/22/2018 SUBJECTIVE: Patient was seen and examined at bedside and overnight events noted. Patient denies any shortness of breath or chest pain or palpitation. No history of nausea or vomiting or diarrhea or f ever or chills or cramps. OBJECTIVE: GENERAL: This is a well-built -[place], confused. VITAL SIGNS: Temperature 98.4, pulse 74, respiratory rate 16, blood pressure 148/101. HEENT: Atraumatic, normocephalic. Oral mucosa is moist. NECK: Supple CARDIOVASCULAR: S1, S2 heard. Rate and rhythm regular. RESPIRATORY: Clear to auscultation. GASTROINTESTINAL: Abdomen is soft. MUSCULOSKELETAL: No tenderness, no edema. DERMATOLOGIC: No skin rash. NEUROLOGIC: Confused. PSYCHIATRIC: Mood and affect normal. LABORATORY DATA: Potassium is 5.2, BUN is 113, creatinine is 3.4. ASSESSMENT AND PLAN: 1. Acute kidney injury on chronic kidney disease, stage 4; stable. Creatinine is slightly better. 2. Azotemia. BUN remains elevated. 3. Hepatic encephalopathy, substance abuse. 4. No acute indication for dialysis. 5. Hyperkalemia. 6. Metabolic acidosis. We will monitor.
[2018-05-23] MEDS: Ziprasidone 20 MG VIAL IM PRN ×2 (01:34→13:17)
[2018-05-23] MEDS: Sterile Water 10 ML VIAL FS PRN (01:35)
[2018-05-23] MEDS: Furosemide 40 MG/4 ML VIAL SLOW IVP SCH (05:29)
[2018-05-23] MEDS: Nitroglycerin 2% Ointment 1 INCH/1 GM Packet TOP SCH ×3 (05:41→20:58)
[2018-05-23] MEDS: Spironolactone 25 MG TAB PO SCH ×2 (09:31→12:06)
[2018-05-23] MEDS: risperiDONE 0.25 MG TAB PO SCH ×2 (09:32→12:06)
[2018-05-23] MEDS: Carvedilol 6.25 MG TAB PO SCH ×3 (09:32→18:12)
[2018-05-23] MEDS: ALPRAZolam 1 MG TAB PO SCH ×3 (09:32→20:31)
--- NOTE | 2018-05-23 09:44 | PRG ---
Patient Name: Lynn DANIELLE Date of service: 05/23/2018 Subjective: The patient was seen and examined at bedside. He remains confused and is on restraints. Objective: General: This is a well-built male, confused. Vital signs: Temperature 97.4, pulse 80, respiratory rate 12, blood pressure 150/91. HEENT: Atraumatic, normocephalic. Oral mucosa is moist. Neck: Supple. Cardiovascular: S1 S2 heard. Rate and rhythm regular. Respiratory: Clear to auscultation. Gastrointestinal: Abdomen is soft. Musculoskeletal: No tenderness. 1+ edema. Dermatologic: No skin rash. Neurologic: Confused. Psychiatric: Mood and affect normal. LABORATORY DATA: No labs done today. ASSESSMENT AND PLAN: 1. Acute kidney injury on chronic kidney stage 4. 2. Edema. 3. Hypertension. 4. Anemia. 5. Hyperkalemia. 6. Metabolic acidosis. 7. Hepatic encephalopathy. 8. Altered mentation. We will follow.
[2018-05-23] MEDS: Ferrous Sulfate 325 MG TAB PO SCH (12:05)
[2018-05-23] MEDS: Famotidine/PF 20 mg/2ml Vial SLOW IVP SCH (12:06)
[2018-05-23] MEDS: Folic Acid 1 MG TAB PO SCH (12:06)
--- NOTE | 2018-05-23 16:43 | PDOC.PN ---
- Subjective Encounter Start Date: 05/23/18 Encounter Start Time: 16:32 Mr. Long was seen today in follow-up of CHF exacerbation. He has not changed much, and is very somnolent. He has not been able to take much in by mouth. - Objective Resuscitation Status: Resuscitation Status DNR:Do Not Resuscitate MAR Reviewed: Yes Vital Signs & Weight: Vital Signs (12 hours) Temp Pulse Resp BP Pulse Ox 05/23/18 11:05 97.4 F L 79 20 152/94 H 100 05/23/18 08:00 99 05/23/18 07:54 97.4 F L 71 22 H 151/91 H 99 05/23/18 07:09 100 Weight Weight 6.356 oz I&O: 05/22/18 05/23/18 05/24/18 06:59 06:59 06:59 Intake Total 480 200 Output Total 1325 1350 Balance -845 -1150 Result Diagrams: 05/21/18 03:36 05/22/18 03:56 Phys Exam - Physical Examination HEENT: PERRLA Respiratory: no wheezing, no rales, no rhonchi, clear to auscultation bilateral Cardiovascular: RRR, no significant murmur, no rub Gastrointestinal: soft, non-tender, positive bowel sounds Musculoskeletal: edema present 2+ pitting edema Dx/Plan (1) Acute on chronic systolic heart failure Code(s): I50.23 - ACUTE ON CHRONIC SYSTOLIC (CONGESTIVE) HEART FAILURE Status : Acute (2) Hepatic encephalopathy Code(s): K72.90 - HEPATIC FAILURE, UNSPECIFIED WITHOUT COMA Status: Acute (3) HTN (hypertension) Code(s): I10 - ESSENTIAL (PRIMARY) HYPERTENSION Status: Chronic (4) DM type 2 (diabetes mellitus, type 2) Status: Chronic Qualifiers: Diabetes mellitus fdc insulin use: with terminal manager use Diabetes mellitus complication status: with kidney complications Diabetes mellitus complication detail: with chronic kidney disease Chronic kidney disease stage : stage 3 (moderate) Qualified Code(s): E11.22 - Type 2 diabetes mellitus with diabetic chronic kidney disease; N18.3 - Chronic kidney disease, stage 3 ( moderate); N18.3 - Chronic kidney disease, stage 3 (moderate); N18.3 - Chronic kidney disease, stage 3 (moderate); Z79.4 - longterm (current) use of insulin; Z79.4 - longterm (current) use of insulin; Z79.4 - watermaster (current) use of insulin; Z79.4 - watermaster (current) use of insulin (5) Cocaine abuse Code(s): F14.10 - COCAINE ABUSE, UNCOMPLICATED Status: Chronic - Plan * CHF exacerbation- unchanged * Hepatic encephalopathy- also unchanged * Await Hospice placement.
[2018-05-24] MEDS: Furosemide 40 MG/4 ML VIAL SLOW IVP SCH (00:40)
[2018-05-24] MEDS: Sterile Water 10 ML VIAL FS PRN (01:02)
[2018-05-24] MEDS: Ziprasidone 20 MG VIAL IM PRN (01:02)
[2018-05-24] MEDS: Nitroglycerin 2% Ointment 1 INCH/1 GM Packet TOP SCH ×3 (04:57→20:26)
[2018-05-24] MEDS: Ferrous Sulfate 325 MG TAB PO SCH (08:00)
[2018-05-24] MEDS: Spironolactone 25 MG TAB PO SCH (08:30)
[2018-05-24] MEDS: Famotidine/PF 20 mg/2ml Vial SLOW IVP SCH (08:30)
[2018-05-24] MEDS: Carvedilol 6.25 MG TAB PO SCH ×2 (08:53→17:36)
--- NOTE | 2018-05-24 09:04 | PRG ---
Patient Name: Ermias DANIELLE Date of service: 05/24/2018 Subjective: Patient was seen and examined at bedside and overnight events noted. Patient denies any shortness of breath or chest pain or palpitation. No history of nausea or vomiting or diarrhea or fever or chills or cramps. Objective: General: This is a well-built male in no apparent distress. Vital signs: Temperature 97, pulse 80, respiratory rate 18, blood pressure 132/64. HEENT: Atraumatic, normocephalic. Oral mucosa is moist. Neck: Supple. Cardiovascular: S1 S2 heard. Rate and rhythm regular. Respiratory: Clear to auscultation. Gastrointestinal: Abdomen is soft. Musculoskeletal: No tenderness. No edema. Dermatologic: No skin rash. Neurologic: Alert and awake and oriented X3. No focal neurologic deficits. Moving all the extremit ies. Psychiatric: Mood and affect normal. LABORATORY DATA: No labs done today. ASSESSMENT AND PLAN: 1. Acute kidney injury. Monitor labs. 2. Azotemia. 3. Encephalopathy, better. 4. Hyperkalemia. 5. Metabolic acidosis. Monitor labs. Avoid nephrotoxins.
[2018-05-24] MEDS: risperiDONE 0.25 MG TAB PO SCH (10:31)
[2018-05-24] MEDS: ALPRAZolam 1 MG TAB PO SCH ×2 (10:32→20:27)
[2018-05-24] MEDS: Folic Acid 1 MG TAB PO SCH (10:35)
--- NOTE | 2018-05-24 17:09 | PDOC.PN ---
- Subjective Encounter Start Date: 05/24/18 Encounter Start Time: 17:08 Mr. Long was seen today in follow-up of hepatic encephalopathy. He is awake and can answer a few simple questions. He does not endorse any medical complaints. - Objective Resuscitation Status: Resuscitation Status DNR:Do Not Resuscitate MAR Reviewed: Yes Vital Signs & Weight: Vital Signs (12 hours) Temp Pulse Resp BP BP Pulse Ox 05/24/18 12:18 68 14 139/94 H 100 05/24/18 08:53 133/94 H 05/24/18 08:00 97.4 F L 74 16 133/64 98 05/24/18 07:50 98 05/24/18 06:56 100 Weight Weight 6.356 oz I&O: 05/23/18 05/24/18 05/25/18 06:59 06:59 06:59 Intake Total 200 837 Output Total 1350 1150 Balance -1150 -313 Result Diagrams: 05/21/18 03:36 05/22/18 03:56 Phys Exam - Physical Examination HEENT: PERRLA Respiratory: no wheezing, no rales, no rhonchi, clear to auscultation bilateral Cardiovascular: RRR, no significant murmur, no rub no gallop Gastrointestinal: soft, non-tender, positive bowel sounds Musculoskeletal: edema present 3-4 + pitting edema on both lower and upper extremities intermittent confusion Dx/Plan (1) Acute on chronic systolic heart failure Code(s): I50.23 - ACUTE ON CHRONIC SYSTOLIC (CONGESTIVE) HEART FAILURE Status : Acute (2) Hepatic encephalopathy Code(s): K72.90 - HEPATIC FAILURE, UNSPECIFIED WITHOUT COMA Status: Acute (3) HTN (hypertension) Code(s): I10 - ESSENTIAL (PRIMARY) HYPERTENSION Status: Chronic (4) DM type 2 (diabetes mellitus, type 2) Status: Chronic Qualifiers: Diabetes mellitus cupola patcher helper insulin use: with mcc use Diabetes mellitus complication status: with kidney complications Diabetes mellitus complication detail: with chronic kidney disease Chronic kidney disease stage : stage 3 (moderate) Qualified Code(s): E11.22 - Type 2 diabetes mellitus with diabetic chronic kidney disease; N18.3 - Chronic kidney disease, stage 3 ( moderate); N18.3 - Chronic kidney disease, stage 3 (moderate); N18.3 - Chronic kidney disease, stage 3 (moderate); Z79.4 - [facility] (current) use of insulin; Z79.4 - covering and lining supervisor (current) use of insulin; Z79.4 - covering and lining supervisor (current) use of insulin; Z79.4 - covering and lining supervisor (current) use of insulin (5) Cocaine abuse Code(s): F14.10 - COCAINE ABUSE, UNCOMPLICATED Status: Chronic - Plan * Acute on chronic systolic heart failure- lasix when tolerated * Hepatic encephalopathy- Lactulose when tolerated * Awaiting placement .
[2018-05-25] MEDS: Nitroglycerin 2% Ointment 1 INCH/1 GM Packet TOP SCH ×3 (05:17→20:45)
[2018-05-25] MEDS: Furosemide 40 MG/4 ML VIAL SLOW IVP SCH (05:18)
--- NOTE | 2018-05-25 09:57 | PRG ---
Patient Name: Ermias DANIELLE Date of service: 05/25/2018 Subjective: Patient was seen and examined at bedside and overnight events noted. Patient denies any shortness of breath or chest pain or palpitation. No history of nausea or vomiting or diarrhea or fever or chills or cramps. Objective: General: This is a well-built male in no apparent distress. Vital signs: Temperature 96, pulse 90, respiratory rate 18, blood pressure 125/86. HEENT: Atraumatic, normocephalic. Oral mucosa is moist. Neck: Supple. Cardiovascular: S1 S2 heard. Rate and rhythm regular. Respiratory: Clear to auscultation. Gastrointestinal: Abdomen is soft. Musculoskeletal: No tenderness. No edema. Dermatologic: No skin rash. Neurologic: Alert and awake and oriented X3. No focal neurologic deficits. Moving all the extremit ies. Psychiatric: Mood and affect normal. LABORATORY DATA: No labs done today. ASSESSMENT AND PLAN: 1. Acute kidney injury, check labs. 2. Azotemia, clinically, seems better. 3. Hyperkalemia. 4. Metabolic acidosis. Plan is to check labs today.
[2018-05-25] MEDS: Folic Acid 1 MG TAB PO SCH (10:19)
[2018-05-25] MEDS: Famotidine/PF 20 mg/2ml Vial SLOW IVP SCH (10:19)
[2018-05-25] MEDS: ALPRAZolam 1 MG TAB PO SCH ×2 (10:19→20:10)
[2018-05-25] MEDS: Carvedilol 6.25 MG TAB PO SCH ×2 (10:19→17:06)
[2018-05-25] MEDS: Ferrous Sulfate 325 MG TAB PO SCH (10:19)
[2018-05-25] MEDS: Spironolactone 25 MG TAB PO SCH (10:20)
[2018-05-25] MEDS: risperiDONE 0.25 MG TAB PO SCH (10:20)
--- NOTE | 2018-05-25 18:04 | PDOC.PN ---
- Subjective Encounter Start Date: 05/25/18 Encounter Start Time: 18:02 Mr. Long was seen today in follow-up of CHF exacerbation and hepatic encephalopathy. He does not have any complaints today. He is more lucid today. He was able to get a few doses of Lactulose down yesterday. He has eaten a little of his dinner. - Objective Resuscitation Status: Resuscitation Status DNR:Do Not Resuscitate MAR Reviewed: Yes Vital Signs & Weight: Vital Signs (12 hours) Pulse Resp BP Pulse Ox 05/25/18 17:08 71 18 133/85 97 Weight Weight 183 lb 7.358 oz I&O: 05/24/18 05/25/18 05/26/18 06:59 06:59 06:59 Intake Total 070 990 0486 Output Total 9996 877 1670 Balance -313 115 -600 Result Diagrams: 05/21/18 03:36 05/22/18 03:56 Phys Exam - Physical Examination HEENT: PERRLA + facial swelling Respiratory: no wheezing, no rales, no rhonchi, clear to auscultation bilateral Cardiovascular: RRR, no significant murmur, no rub Gastrointestinal: soft, non-tender, no distention, positive bowel sounds Musculoskeletal: edema present + anasarca Dx/Plan (1) Acute on chronic systolic heart failure Code(s): I50.23 - ACUTE ON CHRONIC SYSTOLIC (CONGESTIVE) HEART FAILURE Status : Acute (2) Hepatic encephalopathy Code(s): K72.90 - HEPATIC FAILURE, UNSPECIFIED WITHOUT COMA Status: Acute (3) HTN (hypertension) Code(s): I10 - ESSENTIAL (PRIMARY) HYPERTENSION Status: Chronic (4) DM type 2 (diabetes mellitus, type 2) Status: Chronic Qualifiers: Diabetes mellitus terminal operator insulin use: with fdc use Diabetes mellitus complication status: with kidney complications Diabetes mellitus complication detail: with chronic kidney disease Chronic kidney disease stage : stage 3 (moderate) Qualified Code(s): E11.22 - Type 2 diabetes mellitus with diabetic chronic kidney disease; N18.3 - Chronic kidney disease, stage 3 ( moderate); N18.3 - Chronic kidney disease, stage 3 (moderate); N18.3 - Chronic kidney disease, stage 3 (moderate); Z79.4 - marine oil terminal superintendent (current) use of insulin; Z79.4 - [facility] (current) use of insulin; Z79.4 - [facility] (current) use of insulin; Z79.4 - marine oil terminal superintendent (current) use of insulin (5) Cocaine abuse Code(s): F14.10 - COCAINE ABUSE, UNCOMPLICATED Status: Chronic - Plan * Acute on chronic systolic heart failure- patient is volume overloaded. Since he is more alert today I have encouraged him to try to take the Lasix by mouth * Hepatic encephalopathy- continue Lactulose as tolerated * Patient has been out of restraints today * Awaiting skilled nursing and Hospice placement for end stage systolic heart failure, and Liver disease.
[2018-05-25 19:41] VITALS: BP 137/92; TEMP 96.7
[2018-05-26] MEDS ORDERED: Furosemide 80 MG TAB PO SCH (09:00)
[2018-05-26] MEDS: Ferrous Sulfate 325 MG TAB PO SCH (11:46)
[2018-05-26] MEDS: Furosemide 40 MG/4 ML VIAL SLOW IVP SCH (11:46)
[2018-05-26] MEDS: Nitroglycerin 2% Ointment 1 INCH/1 GM Packet TOP SCH (11:46)
[2018-05-26] MEDS: Carvedilol 6.25 MG TAB PO SCH (11:46)
[2018-05-26] MEDS: Folic Acid 1 MG TAB PO SCH (11:47)
[2018-05-26] MEDS: ALPRAZolam 1 MG TAB PO SCH (11:47)
[2018-05-26] MEDS: Spironolactone 25 MG TAB PO SCH (11:47)
[2018-05-26] MEDS: Famotidine/PF 20 mg/2ml Vial SLOW IVP SCH (11:47)
[2018-05-26] MEDS: risperiDONE 0.25 MG TAB PO SCH (11:47)
--- NOTE | 2018-05-26 13:58 | DIS ---
DATE OF ADMISSION: 05/19/2018 DATE OF DISCHARGE: 05/26/2018 DISCHARGE DIAGNOSES: 1. Acute on chronic systolic congestive heart failure with ejection fraction of 10%-15% secondary to noncompliance, stable. 2. Hepatic encephalopathy secondary to noncompliance and end-stage liver disease. 3. Hypertension, stable. 4. Diabetes mellitus type 2, poor control. 5. Polysubstance abuse with cocaine and marijuana. 6. Noncompliance. CONSULTATIONS: Dr. Clayton with Nephrology Service. Dr. Elizabeth with Cardiology Service. Dr. Amin with Pulmonology Service. PERTINENT LABORATORY DATA AND X-RAY FINDINGS: Potassium ranged between 4.9-5.4 , creatinine ranged between 3.47-4.01, phosphorous 5.3 and calcium 8.5. Serum iron 56, TIBC 123, percent saturation 46, ferritin 415, serum ammonia level 136. BNP 17,663 previously 4335. TSH 2.18. Vitamin B12 level greater than 2000, folate level 15.2. CBC showed hemoglobin ranging between 8.6-9.4. Urine drug screen positive for opiates and cocaine. A 2D transthoracic echocardiogram dated 05/19/2018 showed ejection fraction of 10%-15%. Biatrial enlargement. Severe tricuspid and mitral valve regurgitation. HOSPITAL COURSE: The patient was initially admitted to the intermediate care unit after presenting with increased shortness of breath and edema in the context of known chronic kidney disease stage 4, end-stage liver disease and systolic congestive heart failure with noncompliance. The patient was placed on IV Lasix and monitored in the intermediate care unit. The patient was also noted with associated encephalopathy, likely multifactorial in conjunction with hepatic etiology. The patient received lactulose with overall slow improvement in mental status. The patient was transitioned out of the intermediate care unit to the medical floor and continued on lactulose therapy. Due to patient's agitation and combativeness, patient required intermittent restraints as well as chemical restraint with Geodon and Xanax. Due to patient's overall comorbid status, social situation and inability to care for self, patient was deemed an appropriate candidate for ongoing skilled care. The patient has been approved for transfer to [facility] on 05/26/2018. The patient's overall hospital stay was delayed due to requirements for restraints. The patient is currently out of mechanical restraints with stable mental function. I have examined the patient at the time of discharge and discussed disposition. The patient overall clinically stable and ready for discharge on 05/26/2018. DISCHARGE MEDICATIONS: 1. Spironolactone 200 mg p.o. daily. 2. Allopurinol 100 mg 1 tab p.o. daily. 3. Enteric coated aspirin 81 mg p.o. daily. 4. Coreg 12.5 mg p.o. b.i.d. 5. Vitamin B12 1000 mcg p.o. daily. 6. Feosol 325 mg p.o. daily. 7. Folic acid 1 mg p.o. daily. 8. 80 mg p.o. b.i.d. of Lasix. 9. Lactulose 20 grams p.o. daily. 10. Lisinopril 5 mg p.o. daily. 11. Metolazone 2.5 mg p.o. Tuesday, and Tuesday. 12. Multivitamin 1 tab p.o. daily. 13. Risperdal 0.5 mg p.o. daily. FOLLOWUP: Patient to follow up with Dr. Sheridan at [facility]. CONDITION ON DISCHARGE: Guarded. ACTIVITY: Ad amena. DIET: Heart healthy, pureed texture. CODE STATUS: DO NOT RESUSCITATE. DISPOSITION: Discharged to [facility] on 05/26/2018. Total time preparing and coordinating discharge is 32 minutes. MTDD
--- NOTE | 2018-05-26 15:09 | PRG ---
DATE OF SERVICE: 05/26/2018 SUBJECTIVE: The patient remains confused and nonverbal. OBJECTIVE: GENERAL: This is a well-built male, in no apparent distress. VITAL SIGNS: Temperature , pulse 80, respiratory rate 18, blood pressure 137/92. HEENT: Atraumatic, normocephalic. Oral mucosa is moist. NECK: Supple. CARDIOVASCULAR: S1 and S2 heard. Rate and rhythm regular. RESPIRATORY: Clear to auscultation. GASTROINTESTINAL: Abdomen is soft. MUSCULOSKELETAL: No tenderness. No edema. DERMATOLOGIC: No skin rash. NEUROLOGIC: Alert and awake and oriented x3. No focal neurologic deficits. Moving all the extremit ies. PSYCHIATRIC: Mood and affect normal. LABORATORY DATA: No labs done today. ASSESSMENT AND PLAN: 1. Acute kidney injury. 2. Azotemia. 3. Altered mentation. 4. Hyperkalemia. 5. Metabolic acidosis. Prognosis guarded.
== END 2018-05-26 14:03 | DRG 291 ==
LOC: ERS 17:52 → IMCU/EMU 05-19 02:30 → T4-A 05-22 10:17
PROVIDERS: ADMIT Internal Medicine; ATTEND Internal Medicine
DX: I13.0 Hypertensive heart and chronic kidney disease with heart failure and stage 1 through stage 4 chronic kidney disease, or unspecified chronic kidney disease (principal); I50.43 Acute on chronic combined systolic (congestive) and diastolic (congestive) heart failure; N18.6 End stage renal disease; K72.00 Acute and subacute hepatic failure without coma; G92 Toxic encephalopathy; N39.0 Urinary tract infection, site not specified; B19.9 Unspecified viral hepatitis without hepatic coma; E87.2 Acidosis; N17.9 Acute kidney failure, unspecified; E11.22 Type 2 diabetes mellitus with diabetic chronic kidney disease; I25.2 Old myocardial infarction; I25.10 Atherosclerotic heart disease of native coronary artery without angina pectoris; E78.5 Hyperlipidemia, unspecified; Z91.14 Patient's other noncompliance with medication regimen; F14.10 Cocaine abuse, uncomplicated; Z66 Do not resuscitate; J44.9 Chronic obstructive pulmonary disease, unspecified; F17.210 Nicotine dependence, cigarettes, uncomplicated; F19.10 Other psychoactive substance abuse, uncomplicated; Z88.6 Allergy status to analgesic agent; Z88.8 Allergy status to other drugs, medicaments and biological substances; Z79.899 Other long term (current) drug therapy; Z79.891 Long term (current) use of opiate analgesic; Z79.4 Long term (current) use of insulin; E87.5 Hyperkalemia; F12.10 Cannabis abuse, uncomplicated; Z95.5 Presence of coronary angioplasty implant and graft; I42.9 Cardiomyopathy, unspecified
CPT/HCPCS: 36415; 51702; 71045; 80048; 80053; 80069; 80306; 80307; 81003; 81015; 82140; 82553; 82607; 82728; 82746; 82805; 83540; 83550; 83880; 84443; 84484; 85025; 85046; 90471; 90670; 93005; 93010; 93306; 94640; 96372; 96374; A4216; C1752; G0009; J0696; J1630; J1642; J1644; J1940; J3486; J7050; J7620; S0028